=== PATIENT | male | born 1970 ===

== ENCOUNTER → 2020-05-10 11:42 | Outpatient (BNVA) | payer MEDICARE, MEDICAID, SELFPAY | PROVIDERS: PCP Internal Medicine; Referring Provider Internal Medicine; Visit Provider Urology | DX: Z76.89 Persons encountering health services in other specified circumstances (principal) | CPT/HCPCS: Q3014 ==

== ENCOUNTER 2020-07-05 08:40 | Outpatient (REF) | payer MEDICARE, MEDICAID, SELFPAY ==
[2020-07-05 11:36] LABS: Estimated Average Glucose 117 mg/dL; Hemoglobin A1c % 5.7 %
[2020-07-05 11:48] LABS: Alanine Aminotransferase 23 U/L (0-40); Albumin Level 3.9 g/dL (3.5-5.0); Alkaline Phosphatase 61 U/L (39-117); Anion Gap 11 (12-20); Aspartate Amino Transferase 30 U/L (5-37); Bilirubin Total 0.5 mg/dL (0.0-1.0); Blood Urea Nitrogen 20 mg/dL (9-16); Calcium 8.7 mg/dL (8.4-10.2); Carbon Dioxide 29 mmol/L (22-29); Chloride 102 mmol/L (96-108); Cholesterol 124 mg/dL; Estimated Glomerular Filt Rate 49; Glucose Fasting 106 mg/dL (60-99); HDL Cholesterol 34 mg/dL; LDL Cholesterol Calculated 54 mg/dl; Potassium 4.3 mmol/l (3.3-5.1); Sodium 138 mmol/L (135-145); Total Protein 6.6 g/dL (6.5-8.0); Triglycerides 180 mg/dL
[2020-07-05 12:01] LABS: Free T4 (Free Thyroxine) 0.86 ng/dL (0.71-1.85); Thyroid Stimulating Hormone 2.32 uIU/mL (0.32-4.0)
[2020-07-05 12:10] LABS: Prostate Specific Antigen 1.41 ng/mL (<0.05-4.0)
[2020-07-05 15:20] LABS: Creatinine Urine 164.67 mg/dL
[2020-07-06 12:26] LABS: Thyroid Peroxidase Antibodies 1 IU/mL (<9)
== END 2020-07-05 08:41 | disposition home or self-care (01) ==
LOC: HO.HMGCLDS 08:40
PROVIDERS: PCP Internal Medicine; Visit Provider Urology
DX: E11.9 Type 2 diabetes mellitus without complications (principal); E03.9 Hypothyroidism, unspecified; N40.1 Benign prostatic hyperplasia with lower urinary tract symptoms; N13.8 Other obstructive and reflux uropathy; Z12.5 Encounter for screening for malignant neoplasm of prostate
CPT/HCPCS: 36415; 80053; 80061; 82043; 83036; 84153; 84439; 84443; 86376

== ENCOUNTER 2020-09-03 11:28 | Outpatient (REF) | payer MEDICARE, MEDICAID, SELFPAY ==
--- NOTE | ~2020-09-03 | XR_ITS ---
EXAMINATION: XR SACRUM AND COCCYX CLINICAL INFORMATION: M53.3 - Sacrococcygeal disorders, not elsewhere classified COMPARISON: CT abdomen and pelvis 10/15/2019, radiographs lumbar spine 07/10/2019 TECHNIQUE: The sacrum and coccyx are imaged together in [id number] to include both areas, for a total of 3 views. FINDINGS: There is no fracture or destructive process. No diastases SI joints or erosive change. No visible presacral soft tissue swelling. Bowel gas unremarkable. There are mild degenerative disc changes lumbosacral junction, similar to the CT. XR/XR sacrum coccyx min 2V IMPRESSION: 1. Mild degenerative disc changes lumbosacral junction similar to CT 2020. 2. No acute bony abnormality. No destructive process.
== END 2020-09-03 11:29 | disposition home or self-care (01) ==
LOC: HO.HMGCX 11:28
PROVIDERS: PCP Internal Medicine; Visit Provider Hospitalist
DX: M53.3 Sacrococcygeal disorders, not elsewhere classified (principal)
CPT/HCPCS: 72220

== ENCOUNTER 2020-10-08 13:39 | Outpatient (REF) | payer MEDICARE, MEDICAID, SELFPAY ==
--- NOTE | ~2020-10-08 | XR_ITS ---
EXAMINATION: XR HIP, RIGHT CLINICAL INFORMATION: Fall COMPARISON: August 14, 2017 TECHNIQUE: AP pelvis and 2 views of the right hip FINDINGS: There is no evidence of acute fracture or diastases of the pelvis. Sacroiliac joints unremarkable. Hip joint spaces are maintained. There is no evidence of acute fracture or dislocation of the right hip. Right hip joint space is maintained without significant spurring. No lytic or sclerotic lesions about the femoral head identified. XR/XR hip RT w [id number] IMPRESSION: No significant bony abnormality of AP pelvis or right hip.
== END 2020-10-08 13:40 | disposition home or self-care (01) ==
LOC: HO.HMGCX 13:39
PROVIDERS: PCP Internal Medicine; Visit Provider Nurse Practitioner Family
DX: M25.551 Pain in right hip (principal); W19.XXXA Unspecified fall, initial encounter
CPT/HCPCS: 73502

== ENCOUNTER 2020-10-19 15:13 | Outpatient (REF) | payer MEDICARE, MEDICAID, SELFPAY ==
--- NOTE | ~2020-10-19 | US_ITS ---
EXAMINATION: US RETROPERITONEAL LIMITED (RENAL ONLY) CLINICAL INFORMATION: Calculus of kidney. COMPARISON: CT abdomen and pelvis without contrast dated 10/15/2019. Renal ultrasound with bladder dated 12/17/2016. TECHNIQUE: Real-time imaging of the kidneys. FINDINGS: RIGHT KIDNEY: 8.2 x 5.3 x 4.0 cm (SAG x AP x TRV). The kidney is normal in size, contour, and echogenicity. Renal cortical thickness is normal. No renal calculi or hydronephrosis. Upper pole 9 mm cyst. LEFT KIDNEY: 8.9 x 4.5 x 4.9 cm (SAG x AP x TRV). The kidney is normal in size, contour, and echogenicity. Renal cortical thickness is normal. No focal parenchymal lesions or hydronephrosis. Midpole 3 mm echogenic focus, perhaps small nonobstructing calculus. US/US renal BI IMPRESSION: 1. Right renal 9 mm cyst.. 2. Possible 3 mm left renal nonobstructing calculus. No hydronephrosis.
== END 2020-10-19 15:14 | disposition home or self-care (01) ==
LOC: HO.HMGCX 15:13
PROVIDERS: PCP Internal Medicine; Visit Provider Urology
DX: N20.0 Calculus of kidney (principal); N13.8 Other obstructive and reflux uropathy; N40.1 Benign prostatic hyperplasia with lower urinary tract symptoms
CPT/HCPCS: 76775

== ENCOUNTER 2020-11-28 07:53 | Outpatient (REF) | payer MEDICARE, MEDICAID, SELFPAY ==
[2020-11-28 12:00] LABS: Estimated Average Glucose 123 mg/dL; Hemoglobin A1c % 5.9 %
[2020-11-28 12:06] LABS: Alanine Aminotransferase 18 U/L (0-40); Anion Gap 12 (12-20); Aspartate Amino Transferase 23 U/L (5-37); Blood Urea Nitrogen 19 mg/dL (9-16); Calcium 8.8 mg/dL (8.4-10.2); Carbon Dioxide 30 mmol/L (22-29); Chloride 103 mmol/L (96-108); Cholesterol 129 mg/dL; Estimated Glomerular Filt Rate 56; Glucose Fasting 101 mg/dL (60-99); HDL Cholesterol 30 mg/dL; LDL Cholesterol Calculated 61 mg/dl; Potassium 4.4 mmol/L (3.3-5.1); Sodium 141 mmol/L (135-145); Triglycerides 194 mg/dL
[2020-11-28 12:14] LABS: Creatinine Urine 107.43 mg/dL; Microalbum/Creatinine Ratio Ur 22.3 ug/mg cr
[2020-11-28 12:31] LABS: Free T4 (Free Thyroxine) 0.82 ng/dL (0.71-1.85)
== END 2020-11-28 07:54 | disposition home or self-care (01) ==
LOC: HO.HMGCLDS 07:53
PROVIDERS: PCP Internal Medicine; Visit Provider Internal Medicine
DX: Z01.818 Encounter for other preprocedural examination (principal); Z21 Asymptomatic human immunodeficiency virus [HIV] infection status; E11.9 Type 2 diabetes mellitus without complications; E78.5 Hyperlipidemia, unspecified; I10 Essential (primary) hypertension; E03.9 Hypothyroidism, unspecified
CPT/HCPCS: 36415; 80048; 80061; 82043; 83036; 84439; 84443; 84450; 84460; 99202

== ENCOUNTER → 2020-12-28 11:17 | Outpatient (BNVA) | payer MEDICARE, MEDICAID, SELFPAY | PROVIDERS: PCP Internal Medicine; Visit Provider Urology | DX: N40.1 Benign prostatic hyperplasia with lower urinary tract symptoms (principal); N20.0 Calculus of kidney; E11.22 Type 2 diabetes mellitus with diabetic chronic kidney disease; N18.30 Chronic kidney disease, stage 3 unspecified; E03.9 Hypothyroidism, unspecified; E78.5 Hyperlipidemia, unspecified; B20 Human immunodeficiency virus [HIV] disease; Z88.7 Allergy status to serum and vaccine; Z88.2 Allergy status to sulfonamides; Z88.8 Allergy status to other drugs, medicaments and biological substances | CPT/HCPCS: 99212 ==

== ENCOUNTER 2021-01-07 07:30 | Day surgery (SDC) | payer MEDICARE, MEDICAID, SELFPAY ==
[2021-01-01 15:32] VITALS: BMI 26.5
--- NOTE | 2021-01-04 08:59 | P.CONAN_ITS ---
HPI - Anesthesia Eval Consult details Narrative: 50yo M for Colonoscopy PMF Active Problems Active Problems: All Active Problems (Updated 01/01/21 @ 15:29 by Sasha Lu) Coccyxdynia (Acute) Fall (Acute) Hip pain (Acute) Testicular hypofunction (Acute) Cognitive disorder (Acute) Depression (Acute) ADHD (attention deficit hyperactivity disorder) (Acute) CKD (chronic kidney disease), stage III (Acute) Benign prostatic hyperplasia with lower urinary tract symptoms (Acute) HIV (human immunodeficiency virus infection) (Acute) Nephrolithiasis (Acute) Dyslipidemia (Acute) Acquired deformity of toenail (Acute) Acquired hypothyroidism (Acute) Controlled diabetes mellitus type II without complication (Acute) Past Medical History Medical History Acquired deformity of toenail Acquired hypothyroidism ADHD (attention deficit hyperactivity disorder) Benign prostatic hyperplasia with lower urinary tract symptoms CKD (chronic kidney disease), stage III Cognitive disorder Controlled diabetes mellitus type II without complication COVID-19 vaccine series completed Depression Dyslipidemia HIV (human immunodeficiency virus infection) Lives in nursing home Nephrolithiasis Testicular hypofunction Family History Family History Father Unknown family medical history Mother Unknown family medical history Brother No problems noted. Sister No problems noted. Daughter No problems noted. Surgical History Surgical History No pertinent past surgical history Social History Social History Alcohol intake: never Patient Tobacco Use Status: Tobacco use Unknown Are you DNR?: No Advance Directives: No Advance Directives Information Provided: No Advance Directives on File: No Meds Allergies Allergy/AdvReac Type Severity Reaction Status Date / Time clindamycin [CLINDAMYCIN] Allergy Unknown UNKNOWN Verified 12/28/20 11:20 Sulfa (Sulfonamide Allergy Unknown UNKNOWN Verified 12/28/20 11:20 Antibiotics) [SULFA (SULFONAMIDE ANTIBIOTICS)] tuberculin, purified protein Allergy Unknown UNKNOWN Verified 12/28/20 11:20 deriva [TB TEST] Home Medications Medication Instructions Recorded Confirmed Last Taken Type bictegravir 50 mg-emtricitabine 1 tab PO DAILY 08/31/20 01/01/21 Unknown History 200 mg-tenofovir alafenam 25 mg tablet divalproex 250 mg tablet,extended 250 mg PO DAILY 08/31/20 01/01/21 Unknown History release 24 hr divalproex 500 mg tablet,extended 1,000 mg PO BEDTIME 08/31/20 01/01/21 Unknown History release 24 hr insulin syringe-needle U-100 /2 #100 ea 08/31/20 01/01/21 Unknown History mL 29 Exam Exam Date and Time: January 04, 2021 0859 Height,Weight and Vital Signs: Height 5 ft 3 in Weight 68.039 kg Pertinent Lab Results Pertinent Lab Results: Laboratory Tests 11/28/20 07:59 Sodium 141 Potassium 4.4 Chloride 103 BUN 19 H Creatinine 1.34 Assessment and Plan Assessment Anesthesia Assessment: Chart Reviewed
[2021-01-07 07:54] VITALS: BP 92/57; PULSE 89; RESP 16; TEMP 36.2; O2SAT 95
[2021-01-07 08:00] LABS: Glucose, Whole Blood 113 mg/dL (60-115)
[2021-01-07] MEDS: Lactated Ringers 1,000 ML 100 ML IVCONT (08:02)
--- NOTE | 2021-01-07 08:10 | HO.ANESPROP2 ---
[facility] Active Problems Active Problems: All Active Problems (Updated 01/01/21 @ 15:29 by Sasha Lu) Coccyxdynia (Acute) Fall (Acute) Hip pain (Acute) Testicular hypofunction (Acute) Cognitive disorder (Acute) Depression (Acute) ADHD (attention deficit hyperactivity disorder) (Acute) CKD (chronic kidney disease), stage III (Acute) Benign prostatic hyperplasia with lower urinary tract symptoms (Acute) HIV (human immunodeficiency virus infection) (Acute) Nephrolithiasis (Acute) Dyslipidemia (Acute) Acquired deformity of toenail (Acute) Acquired hypothyroidism (Acute) Controlled diabetes mellitus type II without complication (Acute) Past Medical History Medical History Acquired deformity of toenail Acquired hypothyroidism ADHD (attention deficit hyperactivity disorder) Benign prostatic hyperplasia with lower urinary tract symptoms CKD (chronic kidney disease), stage III Cognitive disorder Controlled diabetes mellitus type II without complication COVID-19 vaccine series completed Depression Dyslipidemia HIV (human immunodeficiency virus infection) Lives in [place] [facility] Nephrolithiasis Testicular hypofunction Family History Family History Father Unknown family medical history Mother Unknown family medical history Brother No problems noted. Sister No problems noted. Daughter No problems noted. Surgical History Surgical History No pertinent past surgical history Social History Social History Alcohol intake: never Patient Tobacco Use Status: Tobacco use Unknown Are you DNR?: No Advance Directives: No Advance Directives Information Provided: No Advance Directives on File: No Meds Allergies Allergy/AdvReac Type Severity Reaction Status Date / Time clindamycin [CLINDAMYCIN] Allergy Unknown UNKNOWN Verified 12/28/20 11:20 Sulfa (Sulfonamide Allergy Unknown UNKNOWN Verified 12/28/20 11:20 Antibiotics) [SULFA (SULFONAMIDE ANTIBIOTICS)] tuberculin, purified protein Allergy Unknown UNKNOWN Verified 12/28/20 11:20 deriva [TB TEST] Active Medications: Current Medications Generic Name Dose Route Start Last Admin Trade Name Freq PRN Reason Stop Dose Admin Lactated Ringer's 1,000 mls @ 100 mls/hr 01/07/21 07:15 01/07/21 08:02 Lr IVCONT 100 mls/hr .Q10H SARAH Administration Home Medications Medication Instructions Recorded Confirmed Last Taken Type bictegravir 50 mg-emtricitabine 1 tab PO DAILY 08/31/20 01/01/21 Unknown History 200 mg-tenofovir alafenam 25 mg tablet divalproex 250 mg tablet,extended 250 mg PO DAILY 08/31/20 01/01/21 Unknown History release 24 hr divalproex 500 mg tablet,extended 1,000 mg PO BEDTIME 08/31/20 01/01/21 Unknown History release 24 hr insulin syringe-needle U-100 /2 #100 ea 08/31/20 01/01/21 Unknown History mL 29 Exam Exam Date and Time: January 07, 2021 0810 Height,Weight and Vital Signs: Height 5 ft 3 in Weight 68.039 kg Last Vital Signs Temp 97.2 F 01/07/21 07:54 Pulse 89 01/07/21 07:54 Resp 16 01/07/21 07:54 BP 92/57 L 01/07/21 07:54 Pulse Ox 95 01/07/21 07:54 Pertinent Lab Results Pertinent Lab Results: Laboratory Tests 01/07/21 07:56 POC Glucose 113 Airway Mallampati Class: III TM Dist: >3cm Neck ROM: Full Denture: Upper Heart: RRR Lungs: CTA
--- NOTE | 2021-01-07 08:17 | MHC.SHP ---
Pre-Procedural Eval Section A Date of Service: 01/07/21 Section B Chief Complaint: Screening Details of Present Illness: Colon cancer screening Relevant Family History (Specify if Yes): No Relevant Social History: None Present Medications: see Short Stay Collaborative assessment Medical History: Significant History (Acquired deformity of toenail Acquired hypothyroidism ADHD (attention deficit hyperactivity disorder) Benign prostatic hyperplasia with lower urinary tract symptoms CKD (chronic kidney disease), stage III Cognitive disorder Controlled diabetes mellitus type II without complication Depression Dyslipi) History of Previous Operations: No relevant previous surgery Allergies: Allergies Allergy/AdvReac Type Severity Reaction Status Date / Time clindamycin [CLINDAMYCIN] Allergy Unknown UNKNOWN Verified 12/28/20 11:20 Sulfa (Sulfonamide Allergy Unknown UNKNOWN Verified 12/28/20 11:20 Antibiotics) [SULFA (SULFONAMIDE ANTIBIOTICS)] tuberculin, purified protein Allergy Unknown UNKNOWN Verified 12/28/20 11:20 deriva [TB TEST] Review of Systems Sugical H&P ROS: Negative: Constitution, Cardiovascular, Respiratory and Gastrointestinal Exam Surgical H&P Exam: Normal: Heart, Normal: Lungs, Normal: Extremities and Normal: Abdomen Plan Diagnosis/Plan: Unchanged I have reviewed the history and physical and performed a pertinent physical examination on my patient. No changes have occurred unless specified.
[2021-01-07 09:05] VITALS: BP 99/54; PULSE 61; RESP 16; TEMP 36.8; O2SAT 98
[2021-01-07 09:20] VITALS: BP 114/61; PULSE 58; RESP 16; TEMP 36.8; O2SAT 98
--- NOTE | 2021-01-07 13:54 | HO.POSTANES ---
Post Anesthesia Evaluation Post Anesthesia Evaluation Vital Signs: Vital Signs Temp Pulse Resp BP Pulse Ox 01/07/21 09:20 98.3 F 58 16 114/61 98 01/07/21 09:05 98.3 F 61 16 99/54 L 98 01/07/21 07:54 97.2 F 89 16 92/57 L 95 Anesthesia: Monitored Mental Status: Awake Pain Control: Satisfactory Nausea/Vomiting: None Hydration: Adequate Anesthesia-Related Issues: No Anes. Related Issues
--- NOTE | 2021-01-07 17:10 | P.OP_ITS ---
Operative Note Operative Note Date of Service: 01/07/21 Narrative: Pre-op diagnosis: Colon cancer screening Post-op diagnosis: other (Colon polyps, diverticulosis) Procedure: COLONOSCOPY TILL CECUM WITH BIOPSY Consent: Indications for the procedure and potential complications of bleeding, perforation, reaction to medications and missed diagnosis were discussed with the patient and informed consent was obtained. Instrument: Olympus PCF H 190 L variable stiffness pediatric colonoscope Monitoring: Vital signs and clinical assessment, intermittent blood pressure monitoring, continuous EKG monitoring, Pulse oximetry and Carbon Dioxide monitoring were done throughout the procedure. Colon withdrawl time was 17 minutes. Procedure: The patient was placed in the left lateral decubitis position and pre-procedure medications were administered. After a digital rectal examination of the ano-rectum, the video colonoscope was inserted into the rectum and advanced through the colon to the cecum. The colonoscope was slowly withdrawn in a retrograde panoramic fashion and the colon mucosa was carefully examined including a retroflexed view of the rectum. Findings and interventions are described below. Procedure Difficulty: Without difficulty Findings: Terminal Ileum: Not evaluated Cecum: Normal Ascending Colon: Normal Transverse Colon: a 7-8 mm sessile polyp removed with the cold biopsy Descending Colon: Moderate diverticulosis Sigmoid Colon: Moderate diverticulosis Rectum: Normal Ano-rectum: Normal Colon preparation: Fair despite copious irrigation and poor in some areas of the colon Impression and Post Procedure Diagnosis: Colonoscopy Findings: One small polyp removed Moderate diverticulosis seen in the left colon Plan: Await pathology results Patient has an appointment on 01/25/21 in the [facility] with Shona Alba FNP-BC . Repeat Colonoscopy interval based on path results - in 5 years if polyps are adenomatous and 10 years if polyps are hyperplastic (needs 2 day prep or extra - laxatives prior to next colon). Above findings were reviewed with the patient and colon polyps and diverticulosis handouts were given in the discharge area Surgeon: Olvin Aiken MD Anesthesia: MAC (Dr Jarquin) Was an Electrical Tester Battery used for this Procedure?: Yes Electrical Tester Battery: Mamadou Fernandes Estimated blood loss (mL): 0 Pathology: other (A- TRANSVERSE COLON POLYP) Condition: stable Disposition: PACU
== END 2021-01-07 09:52 | disposition home or self-care (01) ==
PROVIDERS: PCP Internal Medicine; Visit Provider Internal Medicine Gastroenterology
PROC: 0DJD8ZZ Inspection of Lower Intestinal Tract, Via Natural or Artificial Opening Endoscopic (ICD-10-PCS; CPT 45378; principal; 2021-01-07 08:20)
DX: Z12.11 Encounter for screening for malignant neoplasm of colon (principal); D12.3 Benign neoplasm of transverse colon; K57.30 Diverticulosis of large intestine without perforation or abscess without bleeding; E11.22 Type 2 diabetes mellitus with diabetic chronic kidney disease; N18.30 Chronic kidney disease, stage 3 unspecified; B20 Human immunodeficiency virus [HIV] disease; F90.9 Attention-deficit hyperactivity disorder, unspecified type; F09 Unspecified mental disorder due to known physiological condition; Z79.899 Other long term (current) drug therapy; Z88.2 Allergy status to sulfonamides; Z88.8 Allergy status to other drugs, medicaments and biological substances
CPT/HCPCS: 45380; 82947; 88305

== ENCOUNTER → 2021-02-12 09:33 | Outpatient (BNVA) | payer MEDICARE, MEDICAID, SELFPAY | PROVIDERS: Visit Provider Nurse Practitioner Family | DX: D36.9 Benign neoplasm, unspecified site (principal); Z98.890 Other specified postprocedural states | CPT/HCPCS: 99212 ==

== ENCOUNTER 2021-04-09 10:28 | Outpatient (REF) | payer MEDICARE, MEDICAID, SELFPAY ==
[2021-04-09 11:31] LABS: Ammonia 29 umol/L (13-55)
[2021-04-09 14:25] LABS: Alanine Aminotransferase 25 U/L (0-40); Albumin Level 3.8 g/dL (3.5-5.0); Alkaline Phosphatase 59 U/L (39-117); Aspartate Amino Transferase 26 U/L (5-37); Bilirubin Direct 0.2 mg/dL (0.0-0.5); Bilirubin Total 0.3 mg/dL (0.0-1.0); Total Protein 6.7 g/dL (6.5-8.0)
== END 2021-04-09 10:29 | disposition home or self-care (01) ==
LOC: HO.HMGCLDS 10:28
PROVIDERS: PCP Internal Medicine; Visit Provider General Practice
DX: F33.1 Major depressive disorder, recurrent, moderate (principal); Z79.899 Other long term (current) drug therapy
CPT/HCPCS: 36415; 80076; 80164; 82140

== ENCOUNTER 2021-06-04 08:14 | Outpatient (REF) | payer MEDICARE, MEDICAID, SELFPAY ==
[2021-06-04 11:52] LABS: Estimated Average Glucose 117 mg/dL; Hemoglobin A1c % 5.7 %
[2021-06-04 12:32] LABS: Free T4 (Free Thyroxine) 0.82 ng/dL (0.71-1.85); Thyroid Stimulating Hormone 1.82 uIU/mL (0.32-4.0)
[2021-06-04 12:35] LABS: Alanine Aminotransferase 17 U/L (0-40); Anion Gap 14 (12-20); Aspartate Amino Transferase 22 U/L (5-37); Blood Urea Nitrogen 19 mg/dL (9-16); Calcium 8.5 mg/dL (8.4-10.2); Carbon Dioxide 23 mmol/L (22-29); Chloride 107 mmol/L (96-108); Cholesterol 111 mg/dL; Estimated Glomerular Filt Rate > 60; Glucose Fasting 97 mg/dL (60-99); HDL Cholesterol 28 mg/dL; LDL Cholesterol Calculated 53 mg/dl; Potassium 3.8 mmol/L (3.3-5.1); Sodium 140 mmol/L (135-145); Triglycerides 154 mg/dL
== END 2021-06-04 08:15 | disposition home or self-care (01) ==
LOC: HO.HMGCLDS 08:14
PROVIDERS: PCP Internal Medicine; Visit Provider Internal Medicine
DX: E03.9 Hypothyroidism, unspecified (principal); E11.9 Type 2 diabetes mellitus without complications; E78.5 Hyperlipidemia, unspecified; I10 Essential (primary) hypertension; Z79.4 Long term (current) use of insulin
CPT/HCPCS: 36415; 80048; 80061; 82043; 83036; 84439; 84443; 84450; 84460

== ENCOUNTER 2021-08-21 10:21 | Outpatient (REF) | payer MEDICARE, MEDICAID, SELFPAY ==
--- NOTE | ~2021-08-21 | US_ITS ---
EXAMINATION: US RETROPERITONEAL LIMITED (RENAL ONLY) CLINICAL INFORMATION: Calculus of kidney. COMPARISON: Ultrasound renal 10/19/2020. CT abdomen pelvis 10/15/2019. TECHNIQUE: Real-time imaging of the kidneys. FINDINGS: RIGHT KIDNEY: 8.4 x 4.6 x 4.1 cm (SAG x AP x TRV). The kidney is normal in size, contour, and echogenicity. Renal cortical thickness is normal. No renal calculi or hydronephrosis. There is anechoic cyst in the upper pole measuring 1.0 x 0.9 x 0.9 cm. No additional cyst seen. LEFT KIDNEY: 9.0 x 4.4 x 4.0 cm (SAG x AP x TRV). The kidney is normal in size, contour, and echogenicity. Renal cortical thickness is normal. No calculi or focal parenchymal lesions. No hydronephrosis. US/US renal BI IMPRESSION: Anechoic cyst upper pole right kidney measuring 1.0 cm. There are no echogenic stones and additional cyst or hydronephrosis.
== END 2021-08-21 10:22 | disposition home or self-care (01) ==
LOC: HO.HMGCX 10:21
PROVIDERS: PCP Internal Medicine; Visit Provider Urology
DX: N20.0 Calculus of kidney (principal)
CPT/HCPCS: 76775

== ENCOUNTER 2021-09-19 16:45 | Emergency (ER) | payer MEDICARE, MEDICAID, SELFPAY ==
--- NOTE | ~2021-09-19 | CT_ITS ---
EXAMINATION: CT ABDOMEN AND PELVIS WITHOUT CONTRAST CLINICAL INFORMATION: Flank pain COMPARISON: None TECHNIQUE: Multidetector volumetric imaging was performed from the superior aspect of the liver through the pubic symphysis. Sagittal and coronal reformatted images were obtained on the technologist's workstation. This CT examination was performed using dose optimization techniques as appropriate, variously including the following: *Automated exposure control *Adjustment of mA and/or kV according to patient size (this includes techniques or standardized protocols for targeted exams where dose is matched to indication/reason for exam; i.e. extremities or head) *Use of iterative reconstruction technique DLP: 377 mGy-cm FINDINGS: LUNG BASES: There are multiple small pulmonary nodules seen in the right lower lobe. LIVER, GALLBLADDER, AND BILIARY TREE: The liver is normal in size, shape, and attenuation. No focal hepatic lesion or biliary ductal dilatation is present. There are punctate radiopaque calculi seen in the dependent gallbladder. There is no wall thickening. PANCREAS: Unremarkable. SPLEEN: Unremarkable. ADRENAL GLANDS: Unremarkable. KIDNEYS AND URETERS: The kidneys are normal in size, shape, and attenuation. No hydronephrosis, hydroureter, or calculi seen. No perinephric stranding. There is a 1 cm exophytic lesion upper pole right kidney. BLADDER: Unremarkable. GASTROINTESTINAL TRACT: There is scattered stool and gas seen throughout the colon without any significant distention. The small bowel loops are normal caliber. Appendix is not seen. No free air or free fluid seen. ABDOMINAL WALL: There is a small umbilical hernia containing fat. LYMPH NODES: Normal. VASCULAR: Unremarkable. PELVIC VISCERA: Unremarkable. OSSEOUS STRUCTURES: There are degenerative disc changes with vacuum disc phenomena L5-S1 disc level. There is mild ventral spondylosis. CT/CT abdomen pelvis wo con IMPRESSION: No acute intra-abdominal process seen. No radiopaque urolith or hydronephrosis. Small mobile gallstones without wall thickening. Small umbilical hernia containing fat. Fleischner guidelines were followed.
[2021-09-19 16:59] VITALS: BP 113/52; PULSE 72; RESP 18; TEMP 37.1; O2SAT 97; BMI 23.3
--- NOTE | 2021-09-19 17:03 | ECG_ITS ---
Test Reason : CHEST PRESSURE Blood Pressure : / mmHG Vent. Rate : 063 BPM Atrial Rate : 063 BPM P-R Int : 150 ms QRS Dur : 088 ms QT Int : 358 ms P-R-T Axes : 036 059 021 degrees QTc Int : 366 ms Normal sinus rhythm Nonspecific T wave abnormality Abnormal ECG When compared with ECG of 14-MAR-2019 12:19, No significant change was found Referred By: Generic ED Physician Electronically Signed By:MANJEET KRISHNA MD
[2021-09-19 17:33] LABS: Appearance Urine CLEAR; Color Urine YELLOW; Glucose Urine UA NEG (NEG); Leukocyte Esterase Urine 1+ (NEG); Nitrite Urine NEG (NEG); Specific Gravity - Urine 1.015 (1.005-1.025); UACC Culture Trigger YES; Urine Blood NEG (NEG); Urine Ketones NEG (NEG); Urine Protein NEG (NEG-TRACE)
[2021-09-19 17:44] LABS: MANUAL DIFF FLAG NO
[2021-09-19 17:46] LABS: Basophils Percent Auto 0.2 % (0-2); Eosinophils Absolute Auto 0.1 X10*3/uL (0.0-0.4); Eosinophils Percent Auto 0.9 % (0-4); Hemoglobin 12.9 g/dl (14.0-18.0); Imm Gran Abs Auto 0.01 X10*3/uL (0.00-0.03); Imm Gran Pct Auto 0.2 % (0.0-0.4); Lymphocytes Absolute Auto 2.2 X10*3/uL (1.2-4.9); Lymphocytes Percent Auto 40.3 % (20-40); Mean Corpuscular HGB Conc 33.9 g/dl (31.0-36.0); Mean Corpuscular Hemoglobin 35.8 pg (27.0-33.0); Mean Corpuscular Volume 105.6 fL (80.0-98.0); Mean Platelet Volume 10.2 fL (9.4-12.4); Monocytes Absolute Auto 0.5 X10*3/uL (0.1-1.2); Monocytes Percent Auto 9.8 % (2-11); Neutrophils Absolute Auto 2.7 x10*3/uL (2.0-8.3); Neutrophils Percent Auto 48.6 % (45-73); Platelet Count 113 X10*3/uL (160-400); Red Cell Distribution Width 12.3 % (11.0-16.0); White Blood Count 5.5 X10*3/uL (4.8-10.8)
[2021-09-19 17:50] LABS: Bacteria Urine TRACE /LPF; RBC Urine 0 /HPF (0)
[2021-09-19 18:04] LABS: Anion Gap 11 (12-20); Blood Urea Nitrogen 17 mg/dL (9-16); Calcium 8.9 mg/dL (8.4-10.2); Carbon Dioxide 29 mmol/L (22-29); Chloride 102 mmol/L (96-108); Creatinine Clr Calc Pharmacy 60.2; Estimated Glomerular Filt Rate > 60; Glucose Random 80 mg/dL (60-115); Potassium 4.9 mmol/L (3.3-5.1); Sodium 137 mmol/L (135-145)
[2021-09-19 20:29] VITALS: BP 124/55; PULSE 67; RESP 16; O2SAT 97
--- NOTE | 2021-09-19 20:37 | ED_ITS ---
HPI - General Adult General Chief complaint: General Medical Stated complaint: Abdominal pain Time Seen by Provider: 09/19/21 22:18 Source: patient and other (Caregiver) Mode of arrival: ambulatory Limitations: other (Cognitive impairment) History of Present Illness HPI narrative: 50-year-old male presents with abdominal pain, epigastric pain, and bilateral flank pain for 1 day. Onset (ago): day(s) (1) Location: chest and abdomen Radiation: non-radiation Severity: moderate Severity scale (1-10): 5 Quality: aching Pain Consistency: intermittent Relieving factors: none Exacerbating factors: movement and other (Palpation) Associated symptoms: denies other symptoms Treatments prior to arrival: none Related Data Home Medications Medication Instructions Recorded Confirmed bictegravir 50 mg-emtricitabine 1 tab PO DAILY 08/31/20 09/04/21 200 mg-tenofovir alafenam 25 mg tablet divalproex 250 mg tablet,extended 250 mg PO DAILY 08/31/20 09/04/21 release 24 hr divalproex 500 mg tablet,extended 1,000 mg PO BEDTIME 08/31/20 09/04/21 release 24 hr sertraline 25 mg tablet mg PO 06/05/21 09/04/21 Previous Rx's Medication Instructions Recorded guaifenesin 100 mg/5 mL oral 200 mg (10 mL) PO Q4H PRN #500 ml 04/03/20 liquid (Cough Syrup) acetaminophen 325 mg tablet 325 mg PO Q8H PRN #30 tab 05/30/20 ibuprofen 600 mg tablet 600 mg PO QID PRN #60 tab 10/08/20 levothyroxine 75 mcg tablet 75 mcg PO QAM #28 tab 01/22/21 blood sugar diagnostic (Contour See Rx Instructions .ROUTE QAM #50 04/17/21 Next Test Strips) strip insulin syringe-needle U-100 /2 #100 ea 04/23/21 mL 29 aspirin 81 mg tablet,delayed 81 mg PO DAILY #90 tab 05/14/21 release methylcellulose (laxative) 500 mg 500 mg PO DAILY #30 tab 05/22/21 tablet (Citrucel) atorvastatin 20 mg tablet 20 mg PO BEDTIME #30 tab 06/05/21 metformin 500 mg tablet 500 mg PO DAILY #30 tab 06/05/21 tamsulosin 0.4 mg capsule 0.4 mg PO DAILY 90 Days #90 cap 06/13/21 finasteride 5 mg tablet 5 mg PO DAILY 90 Days #90 tab 07/01/21 docusate sodium 100 mg capsule 100 mg PO BID #56 cap 07/09/21 (Stool Softener) terazosin 5 mg capsule 5 mg PO BEDTIME 90 Days #90 cap 07/09/21 multivitamin with minerals-ferrous 1 tab PO DAILY #28 tab 07/23/21 sulfate 4.5 mg iron tablet (One Daily Multivitamins with Minerals) calcium carbonate 200 mg calcium 200 mg PO BID #180 ea 08/14/21 (500 mg) chewable tablet (Campos-Gest Antacid) cefuroxime axetil 500 mg tablet 500 mg PO Q12H 7 Days #14 tab 09/19/21 Allergies Allergy/AdvReac Type Severity Reaction Status Date / Time clindamycin [CLINDAMYCIN] Allergy Unknown UNKNOWN Verified 09/04/21 02:13 Sulfa (Sulfonamide Allergy Unknown UNKNOWN Verified 09/04/21 02:13 Antibiotics) [SULFA (SULFONAMIDE ANTIBIOTICS)] tuberculin, purified protein Allergy Unknown UNKNOWN Verified 09/04/21 02:13 deriva [TB TEST] Review of Systems Review of Systems: Constitutional: No Weight loss, No Fever, No Chills, No Night Sweats, No Fatigue, No Malaise ENT/Mouth: No Hearing loss, No Ear Pain, No Nasal Congestion, No Sinus Pain, No Hoarseness, No sore throat, No Rhinorrhea, No Swallowing Difficulty Eyes: No Eye Pain, No Swelling, No Redness, No Foreign Body, No Discharge, No Vision Changes Cardiovascular: No Chest Pain, No SOB, No Dyspnea on Exertion, No Orthopnea, No Edema, No Palpitations Respiratory: No Cough, No Sputum, No Wheezing, No Smoke Exposure, No Dyspnea Gastrointestinal: No Nausea, no Vomiting, no Diarrhea, positive abdominal Pain, positive epigastric pain, No Hematochezia, No Melena Genitourinary: no irregular bleeding, No Dysuria, No Urinary Frequency, No Hematuria, No Urinary Incontinence, No Urgency, positive Flank Pain, No Urinary Flow Changes, No Hesitancy Musculoskeletal: No joint pain, No Myalgias, No Joint Swelling Skin: No Skin Lesions, No rash Neuro: No Weakness, No Numbness, No Paresthesias, No Loss of Consciousness, No Dizziness, No Headache Psych: No Anxiety/Panic, No Depression, No SI/HI/AH/VH, No Social Issues Heme/Lymph: No Bruising, No Bleeding,No Lymphadenopathy Endocrine: No Polyuria, No Polydipsia, No Temperature Intolerance Yes all other systems are reviewed and are negative [facility] Past Medical History Attestation statement: The following information was validated with the patient. Source: old records reviewed Medical History Acquired deformity of toenail Acquired hypothyroidism Acquired hypothyroidism ADHD (attention deficit hyperactivity disorder) Benign prostatic hyperplasia with lower urinary tract symptoms CKD (chronic kidney disease), stage III Cognitive disorder Controlled diabetes mellitus type II without complication COVID-19 vaccine series completed Depression Dyslipidemia HIV (human immunodeficiency virus infection) Lives in long term Nephrolithiasis Testicular hypofunction Tubular adenoma Surgical History No pertinent past surgical history Family History Family History Father Unknown family medical history Mother Unknown family medical history Brother No problems noted. Sister No problems noted. Daughter No problems noted. Social History Social History Alcohol intake: never Patient Tobacco Use Status: Tobacco use Unknown e-Cigarette/Vaping Use: Never Used Advance Directives: No Current occupational status: disabled Physical Exam ED Vital Signs: Vital Signs - 24 hr 09/19/21 16:59 09/19/21 20:29 Temperature 98.7 F Pulse Rate 72 67 Respiratory Rate 18 16 Blood Pressure 113/52 L 124/55 L Pulse Oximetry 97 97 BMI result Body Mass Index 23.3 Appearance: Alert. Oriented X3. No acute distress. Eyes: Pupils equal, round and reactive to light. Sclera nonicteric. ENT: Pharynx normal. Neck: Normal inspection. Neck supple. CVS: Normal heart rate and rhythm. Pulses normal. Respiratory: No respiratory distress. Breath sounds normal. Abdomen: Soft and tenderness noted to epigastric and right upper quadrant, right-sided CVA tenderness noted. No rebound or rigidity. Distention. No pulsatile masses. Skin: Skin warm and dry. Normal skin color. Normal skin turgor. Extremities: No lower extremity edema. Moves all extremities against resi stance. Gait not assessed. Neuro: No motor deficit. No sensory deficit. Cranial nerves 2-12 intact. Course Course Course Narrative: 50-year-old male presents from a long term with long term staff for 1 day of abdominal pain, flank pain, and epigastric pain. Labs drawn while patient was in the waiting room, H&H 12.9/38.0 which is consistent with his prior values dating back to 2019. Urinalysis positive for leukocyte esterase. Will order CT scan of abdomen and pelvis. Patient is able to answer simple questions but is a poor historian per baseline. CT scan of abdomen and pelvis negative for acute findings requiring emergent intervention. Will treat for UTI secondary to positive leukocyte esterase and history of HIV. Patient does have a gallstone without indication of cholecyst itis. Will have patient follow-up with primary care physician as an outpatient. Patient and long term staff verbalized understanding of and agrees to plan of care discharge home. [facility] staff verbalized understanding of signs and symptoms indicating need for emergent intervention. Medical Decision Making Differential Diagnosis Differential Diagnosis: Cholelithiasis, acute abdomen, cholecystitis, nephro lithiasis, UTI, pyelone Medical Records Medical records reviewed: Yes I reviewed the patient's medical records. Lab Data Lab results reviewed: Yes I reviewed the patient's lab results. Result diagrams: 09/19/21 17:41 09/19/21 17:39 Labs: Lab Results 09/19/21 09/19/21 09/19/21 Range/Units 17:17 17:39 17:39 WBC (4.8-10.8) X10*3/uL RBC (4.60-5.80) X10*6/uL Hgb (14.0-18.0) g/dl Hct (42.0-52.0) % MCV (80.0-98.0) fL MCH (27.0-33.0) pg MCHC (31.0-36.0) g/dl RDW (11.0-16.0) % Plt Count (160-400) X10*3/uL MPV (9.4-12.4) fL Immature Gran % (Auto) (0.0-0.4) % Neut % (Auto) (45-73) % Lymph % (Auto) (20-40) % [place] % (Auto) (2-11) % Eos % (Auto) (0-4) % Baso % (Auto) (0-2) % Lymph # (Auto) (1.2-4.9) X10*3/uL [place] # (Auto) (0.1-1.2) X10*3/uL Eos # (Auto) (0.0-0.4) X10*3/uL Baso # (Auto) (0.0-0.2) X10*3/uL Abs Immat Gran (auto) (0.00-0.03) X10*3/uL Absolute Neuts (auto) (2.0-8.3) x10*3/uL Absolute Nucleated RBC (0.0-0.012) X10*3/uL Nucleated RBC % (auto) (0.0-0.2) /100WBC Sodium 137 (135-145) mmol/L Potassium 4.9 D (3.3-5.1) mmol/L Chloride 102 (96-108) mmol/L Carbon Dioxide 29 (22-29) mmol/L Anion Gap 11 L (12-20) BUN 17 H (9-16) mg/dL Creatinine 1.20 (0.5-1.4) mg/dL Estim Creat Clear Calc 60.2 Estimated GFR > 60 Random Glucose 80 (60-115) mg/dL Calcium 8.9 (8.4-10.2) mg/dL Troponin I High Sens 5.7 (<3.5-35.0) ng/L Urine Color YELLOW Urine Appearance CLEAR Urine pH 6.0 (5.0-8.0) Ur Specific [place] 1.015 (1.005-1.025) Urine Protein NEG (NEG-TRACE) MG/DL Urine Glucose (UA) NEG (NEG) MG/DL Urine Ketones NEG (NEG) MG/DL Urine Blood NEG (NEG) Urine Nitrite NEG (NEG) Ur Leukocyte Esterase 1+ H (NEG) Urine RBC 0 (0) /HPF Urine WBC 1-4 (0-4) /HPF Ur Squamous Epith Cells NONE /LPF Urine Bacteria TRACE /LPF 09/19/21 Range/Units 17:41 WBC 5.5 (4.8-10.8) X10*3/uL RBC 3.60 L (4.60-5.80) X10*6/uL Hgb 12.9 L (14.0-18.0) g/dl Hct 38.0 L (42.0-52.0) % MCV 105.6 H (80.0-98.0) fL MCH 35.8 H (27.0-33.0) pg MCHC 33.9 (31.0-36.0) g/dl RDW 12.3 (11.0-16.0) % Plt Count 113 L (160-400) X10*3/uL MPV 10.2 (9.4-12.4) fL Immature Gran % (Auto) 0.2 (0.0-0.4) % Neut % (Auto) 48.6 (45-73) % Lymph % (Auto) 40.3 H (20-40) % [place] % (Auto) 9.8 (2-11) % Eos % (Auto) 0.9 (0-4) % Baso % (Auto) 0.2 (0-2) % Lymph # (Auto) 2.2 (1.2-4.9) X10*3/uL [place] # (Auto) 0.5 (0.1-1.2) X10*3/uL Eos # (Auto) 0.1 (0.0-0.4) X10*3/uL Baso # (Auto) 0.0 (0.0-0.2) X10*3/uL Abs Immat Gran (auto) 0.01 (0.00-0.03) X10*3/uL Absolute Neuts (auto) 2.7 (2.0-8.3) x10*3/uL Absolute Nucleated RBC 0.000 (0.0-0.012) X10*3/uL Nucleated RBC % (auto) 0.0 (0.0-0.2) /100WBC Sodium (135-145) mmol/L Potassium (3.3-5.1) mmol/L Chloride (96-108) mmol/L Carbon Dioxide (22-29) mmol/L Anion Gap (12-20) BUN (9-16) mg/dL Creatinine (0.5-1.4) mg/dL Estim Creat Clear Calc Estimated GFR Random Glucose (60-115) mg/dL Calcium (8.4-10.2) mg/dL Troponin I High Sens (<3.5-35.0) ng/L Urine Color Urine Appearance Urine pH (5.0-8.0) Ur Specific [place] (1.005-1.025) Urine Protein (NEG-TRACE) MG/DL Urine Glucose (UA) (NEG) MG/DL Urine Ketones (NEG) MG/DL Urine Blood (NEG) Urine Nitrite (NEG) Ur Leukocyte Esterase (NEG) Urine RBC (0) /HPF Urine WBC (0-4) /HPF Ur Squamous Epith Cells /LPF Urine Bacteria /LPF Imaging Data CT abdomen pelvis: Attestation: I personally reviewed and interpreted this imaging study as follows: Radiologist's impression: COMPARISON: None? TECHNIQUE: Multidetector volumetric imaging was performed from the superior aspect of the liver through the pubic symphysis. Sagittal and coronal reformatted images were obtained on the technologist's workstation.? This CT examination was performed using dose optimization techniques as appropriate, variously including the following: *Automated exposure control *Adjustment of mA and/or kV according to patient size (this includes techniques or standardized protocols for targeted exams where dose is matched to indication/reason for exam; i.e. extremities or head) *Use of iterative reconstruction technique DLP: 377 mGy-cm FINDINGS: LUNG BASES: There are multiple small pulmonary nodules seen in the right lower lobe. LIVER, GALLBLADDER, AND BILIARY TREE: The liver is normal in size, shape, and attenuation. No focal hepatic lesion or biliary ductal dilatation is present. There are punctate radiopaque calculi seen in the dependent gallbladder. There is no wall thickening.? PANCREAS: Unremarkable.? SPLEEN: Unremarkable.? ADRENAL GLANDS: Unremarkable.? KIDNEYS AND URETERS: The kidneys are normal in size, shape, and attenuation. No hydronephrosis, hydroureter, or calculi seen. No perinephric stranding. There is a 1 cm exophytic lesion upper pole right kidney. BLADDER: Unremarkable.? GASTROINTESTINAL TRACT: There is scattered stool and gas seen throughout the colon without any significant distention. The small bowel loops are normal caliber. Appendix is not seen. No free air or free fluid seen.? ABDOMINAL WALL: There is a small umbilical hernia containing fat.? LYMPH NODES: Normal. VASCULAR: Unremarkable. PELVIC VISCERA: Unremarkable.? OSSEOUS STRUCTURES: There are degenerative disc changes with vacuum disc phenomena L5-S1 disc level. There is mild ventral spondylosis.? CT/CT abdomen pelvis wo con IMPRESSION: No acute intra-abdominal process seen. ? No radiopaque urolith or hydronephrosis. ? Small mobile gallstones without wall thickening. ? Small umbilical hernia containing fat.? ? Fleischner guidelines were followed. ECG Data Attestation: I personally reviewed and interpreted this ECG as follows: Prior ECG tracings: available for review Interpretation: Vent. rate 63 BPM LA interval 150 ms QRS duration 88 ms QT/QTc 358/366 ms P-R-T axes 36 59 21 Normal sinus rhythm Nonspecific T wave abnormality Abnormal ECG When compared with ECG of 14-MAR-2019 12:19, No significant change was found 19-SEP-2021 17:26:16 Discharge Plan Discharge Clinical Impression: Acute UTI, Gallstones Patient Disposition: Home, Self-Care Instructions: Gallstones (ED), Urinary Tract Infection in Men (DC) Additional Instructions: You were evaluated for abdominal pain. CT scan of abdomen and pelvis shows gallstones without a gallbladder infection. Please follow-up with primary care physician as an outpatient for nonsurgical evaluation. Urinalysis is positive for leukocyte esterase. Please take cefuroxime 500 mg twice a day for the next 7 days. Drink plenty of fluids. Thank you for choosing this emergency department for evaluation. Please follow-up with primary care physician as needed. Return to the emergency department for any new, concerning, or worsening symptoms. Prescriptions: New cefuroxime axetil 500 mg tablet 500 mg PO Q12H 7 Days Qty: 14 0RF No Action guaifenesin [Cough Syrup] 100 mg/5 mL liquid 200 mg PO Q4H PRN (Reason: cough) Qty: 500 0RF acetaminophen 325 mg tablet 325 mg PO Q8H PRN (Reason: fever or pain) Qty: 30 0RF levothyroxine 75 mcg tablet 75 mcg PO QAM Qty: 28 8RF Contour Next Test Strips Strip See Rx Instructions .ROUTE QAM Qty: 50 6RF Rx Instructions: Check fasting blood sugar once a day every morning; (DME) insulin syringe-needle U-100 1/2 mL 29 syringe See Rx Instructions ea .ROUTE DAILY Qty: 100 5RF Rx Instructions: As directed aspirin 81 mg tablet,delayed release (DR/EC) 81 mg PO DAILY Qty: 90 3RF Citrucel 500 mg tablet 500 mg PO DAILY Qty: 30 9RF Rx Instructions: take it with full glass of water tamsulosin 0.4 mg capsule 0.4 mg PO DAILY 90 Days Qty: 90 2RF finasteride 5 mg tablet 5 mg PO DAILY 90 Days Qty: 90 2RF terazosin 5 mg capsule 5 mg PO BEDTIME 90 Days Qty: 90 2RF docusate sodium [Stool Softener] 100 mg capsule 100 mg PO BID Qty: 56 6RF One Daily Multi-Vit w-Mineral 4.5 mg iron tablet 1 tab PO DAILY Qty: 28 5RF calcium carbonate [Campos-Gest Antacid] 200 mg calcium (500 mg) tablet,chewable 200 mg PO BID Qty: 180 3RF divalproex 250 mg tablet extended release 24 hr 250 mg PO DAILY 0RF divalproex 500 mg tablet extended release 24 hr 1,000 mg PO BEDTIME 0RF wmdsarsde-yeofwfel-tfriqmy ala 50-200-25 mg tablet 1 tab PO DAILY 0RF ibuprofen 600 mg tablet 600 mg PO QID PRN (Reason: pain) Qty: 60 0RF sertraline 25 mg tablet PO 0RF Label Comments: 75 mg Rx Instructions: 75mg atorvastatin 20 mg tablet 20 mg PO BEDTIME Qty: 30 8RF metformin 500 mg tablet 500 mg PO DAILY Qty: 30 5RF Interventions: ED Discharge Assessment Last Done: 09/19/21 22:36 Discharge Date/Time: 09/19/21 22:38
[2021-09-19 21:23] LABS: Troponin-I High Sensitivity 5.7 ng/L (<3.5-35.0)
== END 2021-09-19 22:38 | disposition home or self-care (01) ==
PROVIDERS: Emergency Provider Emergency Medicine; PCP Internal Medicine
DX: N39.0 Urinary tract infection, site not specified (principal); K80.20 Calculus of gallbladder without cholecystitis without obstruction; R10.9 Unspecified abdominal pain; B20 Human immunodeficiency virus [HIV] disease; E11.22 Type 2 diabetes mellitus with diabetic chronic kidney disease; N18.30 Chronic kidney disease, stage 3 unspecified
CPT/HCPCS: 36415; 74176; 80048; 81001; 84484; 85025; 87086; 93005; 99284

== ENCOUNTER → 2022-02-04 10:26 | Outpatient (BNVA) | payer MEDICARE, MEDICAID, SELFPAY | PROVIDERS: PCP Internal Medicine; Visit Provider Urology | DX: N40.1 Benign prostatic hyperplasia with lower urinary tract symptoms (principal); N20.0 Calculus of kidney; N13.8 Other obstructive and reflux uropathy; R33.9 Retention of urine, unspecified; E11.9 Type 2 diabetes mellitus without complications | CPT/HCPCS: Q3014 ==

== ENCOUNTER 2022-02-23 19:18 | Emergency (ER) | payer MEDICARE, MEDICAID, SELFPAY ==
--- NOTE | ~2022-02-23 | XR_ITS ---
EXAMINATION: XR HIP, RIGHT CLINICAL INFORMATION: Fall. Pain. COMPARISON: 09/19/2021 TECHNIQUE: AP upright, AP supine, and frog-leg lateral views of the right hip. FINDINGS: Minimal osteoarthritis of the bilateral hips with small marginal osteophytes. Joint spaces are normal. Soft tissues are unremarkable. Mild facet arthropathy in the lower lumbar spine. 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 No acute fracture or malalignment
--- NOTE | ~2022-02-23 | XR_ITS ---
EXAMINATION: XR LUMBOSACRAL SPINE CLINICAL INFORMATION: Fall. Hip and back pain. COMPARISON: 09/19/2021 TECHNIQUE: AP and lateral views of the lumbar spine and lateral view of the lumbosacral junction. FINDINGS: There is loss of vertebral disc height at the L5-S1 level with endplate osteophytes. Mild facet arthropathy. Minimal disc otherwise well-preserved. Review body heights are normal. No fractures. Calcific atherosclerosis in the abdominal aorta. SI joints are unremarkable. XR/XR lumbar spine 2-3V IMPRESSION: No acute fracture or malalignment. Degenerative spondylosis at L5-S1.
[2022-02-23 19:31] VITALS: BP 112/59; PULSE 77; RESP 18; O2SAT 95; BMI 24.9
[2022-02-23 19:36] VITALS: BP 112/59; PULSE 81; RESP 14; O2SAT 96
--- NOTE | 2022-02-23 19:38 | ED_ITS ---
HPI - Fall General Chief Complaint: Fall Stated Complaint: fall, back pain Source: patient and EMS Mode of arrival: EMS Limitations: other (Academic impairment) History of Present Illness HPI Narrative: 51-year-old male presents via EMS for injuries sustained from a fall. Patient resides in a senior care, is cognitively impaired, and is wheelchair-bound. States that he was trying to transfer from his wheelchair to his bed and landed on his left hip and lower back onto the floor. Group staff states that he did not his head or lose consciousness, but patient is complaining of left hip pain and lower back pain. Does not describe any other symptoms. MD complaint: fall Onset (ago): hour(s) (Within the hour of arrival) Fall from: wheelchair Fall witnessed: yes, by living facility staff Place fall occurred: home Loss of consciousness: none Prolonged down time: no Symptoms prior to fall: none Context: tripped/slipped Location of injury: back and pelvis Severity: mild Severity scale (1-10): 2 Quality: aching Associated symptoms (after fall): denies Related Data Home Medications Medication Instructions Recorded Confirmed bictegravir 50 mg-emtricitabine 1 tab PO DAILY 08/31/20 09/04/21 200 mg-tenofovir alafenam 25 mg tablet divalproex 250 mg tablet,extended 250 mg PO DAILY 08/31/20 09/04/21 release 24 hr divalproex 500 mg tablet,extended 1,000 mg PO BEDTIME 08/31/20 09/04/21 release 24 hr sertraline 25 mg tablet mg PO 06/05/21 09/04/21 Previous Rx's Medication Instructions Recorded ibuprofen 600 mg tablet 600 mg PO QID PRN pain #60 tabs 10/08/20 blood sugar diagnostic (Contour See Rx Instructions .Route QAM for 04/17/21 Next Test Strips) diabetes mellitus #50 strips insulin syringe-needle U-100 / #100 ea 04/23/21 mL 29 aspirin 81 mg tablet,delayed 81 mg PO DAILY #90 tabs 05/14/21 release methylcellulose (laxative) 500 mg 500 mg PO DAILY #30 tabs 05/22/21 tablet (Citrucel) calcium carbonate 200 mg calcium 200 mg PO BID #180 ea 08/14/21 (500 mg) chewable tablet (Campos-Gest Antacid) cefuroxime axetil 500 mg tablet 500 mg PO Q12H 7 days #14 tabs 09/19/21 levothyroxine 75 mcg tablet 75 mcg PO QAM #90 tabs 10/02/21 metformin 500 mg tablet 500 mg PO DAILY #90 tabs 10/31/21 acetaminophen 325 mg tablet 325 mg PO Q8H PRN fever or pain 11/25/21 #30 tabs guaifenesin 100 mg/5 mL oral 200 mg (10 mL) PO Q4H PRN cough 11/25/21 liquid (Cough Syrup) #500 mL multivitamin with minerals-ferrous 1 tab PO DAILY #28 tabs 12/25/21 sulfate 4.5 mg iron tablet (One Daily Multivitamins with Minerals) atorvastatin 20 mg tablet 20 mg PO BEDTIME #30 tabs 01/24/22 docusate sodium 100 mg capsule 100 mg PO BID #56 caps 01/24/22 (Stool Softener) finasteride 5 mg tablet 5 mg PO DAILY 90 days #90 tabs 02/04/22 terazosin 5 mg capsule 5 mg PO BEDTIME 90 days #90 caps 02/04/22 Allergies Allergy/AdvReac Type Severity Reaction Status Date / Time clindamycin [CLINDAMYCIN] Allergy Unknown UNKNOWN Verified 02/03/22 13:38 Sulfa (Sulfonamide Allergy Unknown UNKNOWN Verified 02/03/22 13:38 Antibiotics) [SULFA (SULFONAMIDE ANTIBIOTICS)] tuberculin, purified protein Allergy Unknown UNKNOWN Verified 02/03/22 13:38 deriva [TB TEST] Review of Systems Review of Systems: Constitutional: No Fever, No Chills ENT/Mouth: No Ear Pain, No Hoarseness, No sore throat Eyes: No Eye Pain, No Swelling, No Redness, No Foreign Body Cardiovascular: No Chest Pain, No SOB Respiratory: No Cough, No Dyspnea Gastrointestinal: No Nausea, No Vomiting, No Diarrhea, No abdominal Pain Genitourinary: No Dysuria, No Hematuria Musculoskeletal: positive lower back and left hip pain, No Myalgias, No Joint Swelling Skin: No Skin lacerations, No rash Neuro: No Weakness, No Numbness, No Paresthesias, No Loss of Consciousness, No Dizziness, No Headache Psych: No Anxiety/Panic, No Depression Heme/Lymph: no easy bruising, no Lymphadenopathy Endocrine: No Polyuria, No Polydipsia Yes all other systems are reviewed and are negative PMFSH Past Medical History Attestation statement: The following information was validated with the patient. Source: old records reviewed Medical History Acquired deformity of toenail Acquired hypothyroidism Acquired hypothyroidism ADHD (attention deficit hyperactivity disorder) Benign prostatic hyperplasia with lower urinary tract symptoms CKD (chronic kidney disease), stage III Cognitive disorder Controlled diabetes mellitus type II without complication COVID-19 vaccine series completed Depression Dyslipidemia HIV (human immunodeficiency virus infection) Lives in senior care Nephrolithiasis Testicular hypofunction Tubular adenoma Surgical History No pertinent past surgical history Family History Family History Father Unknown family medical history Mother Unknown family medical history Brother No problems noted. Sister No problems noted. Daughter No problems noted. Social History Social History Alcohol intake: never Patient Tobacco Use Status: Never used Tobacco e-Cigarette/Vaping Use: Never Used Use of substances other than those prescribed or required for medical reasons: No Advance Directives: No Advance Directives Information Provided: No Current occupational status: disabled Physical Exam Vital Signs: Vital Signs: Last Vital Signs Pulse 81 02/23/22 19:36 Resp 14 02/23/22 19:36 BP 112/59 L 02/23/22 19:36 Pulse Ox 96 02/23/22 19:36 O2 Del Method 02/23/22 19:36 BMI result Body Mass Index 24.9 Appearance: Alert. Oriented X3. No acute distress. Eyes: Pupils equal, round and reactive to light. ENT: Pharynx normal. Neck: Normal inspection. Neck supple. CVS: Normal heart rate and rhythm. Pulses normal. Respiratory: No respiratory distress. Breath sounds normal. Abdomen: Soft and nontender. Skin: Skin warm and dry. Normal skin color. Normal skin turgor. Extremities: No lower extremity edema. Moves all extremities against resistance. Neuro: No motor deficit. No sensory deficit. Cranial nerves 2-12 intact. Course Course Course Narrative: 51-year-old male presents for evaluation for lower back pain and left hip pain after falling from his wheelchair while attempting to transfer from wheelchair t o his bed. Does have a history of chronic back pain and hip pain. He does live in a senior care, is cognitively impaired but able to make his needs known. He is friendly, answering questions appropriately, and appears to be well cared for. [facility] staff is at bedside. Physical exam is unremarkable, moves all extremities against resistance, no crepitus or tenderness to palpation. No indication of hematoma or abrasions to his head, HEENT exam is normal. No cervical vertebral tenderness or step-offs. Will order x-rays of the lumbar spine and left hip. 21:54 x-rays are negative for acute findings. Will discharge home. No change in prescription. Patient does have p.r.n. for Tylenol and Motrin. Patient and senior care staff verbalized understanding of and agrees to plan of care dis charge home. MDM - Fall Differential Diagnosis Differential diagnosis: Likely dislocation and fracture Medical Records Attestation: I reviewed the patient's medical records. Imaging Data Hip and lumbar spine x-ray: Attestation: I personally reviewed and interpreted this imaging study as follows: Radiologist's impression: EXAMINATION: XR LUMBOSACRAL SPINE CLINICAL INFORMATION: Fall. Hip and back pain. COMPARISON: 09/19/2021 TECHNIQUE: AP and lateral views of the lumbar spine and lateral view of the lumbosacral junction. FINDINGS: There is loss of vertebral disc height at the L5-S1 level with endplate osteophytes. Mild facet arthropathy. Minimal disc otherwise well-preserved. Review body heights are normal. No fractures. Calcific atherosclerosis in the abdominal aorta. SI joints are unremarkable. XR/XR lumbar spine 2-3V IMPRESSION: No acute fracture or malalignment. Degenerative spondylosis at L5-S1. EXAMINATION: XR HIP, RIGHT CLINICAL INFORMATION: Fall. Pain. COMPARISON: 09/19/2021 TECHNIQUE: AP upright, AP supine, and frog-leg lateral views of the right hip. FINDINGS: Minimal osteoarthritis of the bilateral hips with small marginal osteophytes. Joint spaces are normal. Soft tissues are unremarkable. Mild facet arthropathy in the lower lumbar spine.? 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 No acute fracture or malalignment ? Discharge Plan Discharge Clinical Impression: Fall, Hip pain, Back pain Patient Disposition: Home, Self-Care Instructions: Acute Low Back Pain (ED), Fall Prevention (ED), Hip Pain (ED) Additional Instructions: You were evaluated for injury sustained from a fall. X-rays of the lower back and hip are negative for acute findings requiring emergent intervention. Please continue to use medications that were prescribed to you, Tylenol and ibuprofen for pain management. Return to the emergency department for any new, concerning, or worsening symptoms. Prescriptions: No Action Contour Next Test Strips Strip See Rx Instructions .ROUTE QAM Qty: 50 6RF Rx Instructions: Check fasting blood sugar once a day every morning; (DME) insulin syringe-needle U-100 1/2 mL 29 syringe See Rx Instructions .ROUTE DAILY Qty: 100 5RF Rx Instructions: As directed aspirin 81 mg tablet,delayed release (DR/EC) 81 mg PO DAILY Qty: 90 3RF Citrucel 500 mg tablet 500 mg PO DAILY Qty: 30 9RF Rx Instructions: take it with full glass of water calcium carbonate [Campos-Gest Antacid] 200 mg calcium (500 mg) tablet,chewable 200 mg PO BID Qty: 180 3RF levothyroxine 75 mcg tablet 75 mcg PO QAM Qty: 90 3RF metformin 500 mg tablet 500 mg PO DAILY Qty: 90 3RF guaifenesin [Cough Syrup] 100 mg/5 mL liquid 200 mg PO Q4H PRN (Reason: cough) Qty: 500 0RF acetaminophen 325 mg tablet 325 mg PO Q8H PRN (Reason: fever or pain) Qty: 30 0RF One Daily Multi-Vit w-Mineral 4.5 mg iron tablet 1 tab PO DAILY Qty: 28 5RF atorvastatin 20 mg tablet 20 mg PO BEDTIME Qty: 30 8RF docusate sodium [Stool Softener] 100 mg capsule 100 mg PO BID Qty: 56 6RF cefuroxime axetil 500 mg tablet 500 mg PO Q12H 7 Days Qty: 14 0RF divalproex 250 mg tablet extended release 24 hr 250 mg PO DAILY divalproex 500 mg tablet extended release 24 hr 1,000 mg PO BEDTIME [id number] ala 50-200-25 mg tablet 1 tab PO DAILY ibuprofen 600 mg tablet 600 mg PO QID PRN (Reason: pain) Qty: 60 0RF sertraline 25 mg tablet PO Label Comments: 75 mg Rx Instructions: 75mg finasteride 5 mg tablet 5 mg PO DAILY 90 Days Qty: 90 1RF terazosin 5 mg capsule 5 mg PO BEDTIME 90 Days Qty: 90 1RF Interventions: ED Discharge Assessment Last Done: 02/23/22 21:39 Discharge Date/Time: 02/23/22 21:37
== END 2022-02-23 21:37 | disposition home or self-care (01) ==
PROVIDERS: Emergency Provider Emergency Medicine
DX: M54.50 Low back pain, unspecified (principal); M25.551 Pain in right hip; Z79.899 Other long term (current) drug therapy
CPT/HCPCS: 72100; 73502; 99284

== ENCOUNTER → 2022-02-27 09:47 | Outpatient (BNVA) | payer MEDICARE, MEDICAID, SELFPAY | PROVIDERS: Visit Provider Nurse Practitioner Family | DX: K57.90 Diverticulosis of intestine, part unspecified, without perforation or abscess without bleeding (principal) | CPT/HCPCS: 99212 ==

== ENCOUNTER 2022-04-18 07:47 | Outpatient (REF) | payer MEDICARE, MEDICAID, SELFPAY ==
[2022-04-18 12:15] LABS: Alanine Aminotransferase 17 U/L (0-40); Anion Gap 14 (12-20); Aspartate Amino Transferase 26 U/L (5-37); Blood Urea Nitrogen 17 mg/dL (9-16); Calcium 9.1 mg/dL (8.4-10.2); Carbon Dioxide 27 mmol/L (22-29); Chloride 104 mmol/L (96-108); Cholesterol 132 mg/dL; Estimated Glomerular Filt Rate 59; Glucose Fasting 112 mg/dL (60-99); HDL Cholesterol 31 mg/dL; LDL Cholesterol Calculated 60 mg/dl; Potassium 4.3 mmol/L (3.3-5.1); Sodium 141 mmol/L (135-145); Triglycerides 206 mg/dL
[2022-04-18 12:18] LABS: Free T4 (Free Thyroxine) 0.89 ng/dL (0.71-1.85); Thyroid Stimulating Hormone 1.87 uIU/mL (0.32-4.0); Vitamin D 25-OH Total 34.5 ng/mL (>30)
[2022-04-18 12:20] LABS: Creatinine Urine 142.42 mg/dL; Microalbum/Creatinine Ratio Ur 25.9 ug/mg cr
== END 2022-04-18 07:48 | disposition home or self-care (01) ==
LOC: HO.HMGCLDS 07:47
PROVIDERS: PCP Internal Medicine; Visit Provider Internal Medicine
DX: E03.9 Hypothyroidism, unspecified (principal); E11.9 Type 2 diabetes mellitus without complications; E78.5 Hyperlipidemia, unspecified; I10 Essential (primary) hypertension; Z79.4 Long term (current) use of insulin
CPT/HCPCS: 36415; 80048; 80061; 82043; 82306; 84439; 84443; 84450; 84460

== ENCOUNTER 2022-08-02 16:25 | Emergency (ER) | payer MEDICARE, MEDICAID, SELFPAY ==
--- NOTE | ~2022-08-02 | XR_ITS ---
Indication: Fall EXAMINATION: Sacrum coccyx, right hip with pelvis and lumbar sacral spine 3 views of the lumbar sacral spine demonstrate degenerative change in lower lumbar sacral spine. No listhesis or compression injury is seen. No fracture line. 2 views of the sacrum coccyx does not demonstrate evidence for fracture. Some limitation from overlying bowel. Single pelvic image does not demonstrate evidence for fracture. 2 views of the right hip does not demonstrate evidence for fracture or dislocation. XR/XR sacrum coccyx min 2V IMPRESSION: Multiple studies. No acute finding.
--- NOTE | ~2022-08-02 | XR_ITS ---
Indication: Fall EXAMINATION: Sacrum coccyx, right hip with pelvis and lumbar sacral spine 3 views of the lumbar sacral spine demonstrate degenerative change in lower lumbar sacral spine. No listhesis or compression injury is seen. No fracture line. 2 views of the sacrum coccyx does not demonstrate evidence for fracture. Some limitation from overlying bowel. Single pelvic image does not demonstrate evidence for fracture. 2 views of the right hip does not demonstrate evidence for fracture or dislocation. XR/XR lumbar spine 2-3V IMPRESSION: Multiple studies. No acute finding.
--- NOTE | ~2022-08-02 | XR_ITS ---
Indication: Fall EXAMINATION: Sacrum coccyx, right hip with pelvis and lumbar sacral spine 3 views of the lumbar sacral spine demonstrate degenerative change in lower lumbar sacral spine. No listhesis or compression injury is seen. No fracture line. 2 views of the sacrum coccyx does not demonstrate evidence for fracture. Some limitation from overlying bowel. Single pelvic image does not demonstrate evidence for fracture. 2 views of the right hip does not demonstrate evidence for fracture or dislocation. XR/XR hip RT w PEL1V IMPRESSION: Multiple studies. No acute finding.
[2022-08-02 16:36] VITALS: BP 122/52; PULSE 77; O2SAT 97
[2022-08-02 16:41] VITALS: BP 92/53; PULSE 79; RESP 16; TEMP 37.1; O2SAT 96; BMI 23.3
--- NOTE | 2022-08-02 17:05 | ED_ITS ---
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 Reports landing on right hip/back. Denies head trauma or LOC. patient takes ASA. Denies neck pain, numbness, tingling, urinary incontinence/retention, abdominal pain, symptoms prior to fall MD complaint: fall Related Data Home Medications Medication Instructions Recorded Confirmed bictegravir 50 mg-emtricitabine 1 tab PO DAILY 08/31/20 09/04/21 200 mg-tenofovir alafenam 25 mg tablet divalproex 250 mg tablet,extended 250 mg PO DAILY 08/31/20 09/04/21 release 24 hr divalproex 500 mg tablet,extended 1,000 mg PO BEDTIME 08/31/20 09/04/21 release 24 hr sertraline 25 mg tablet mg PO 06/05/21 09/04/21 [id number]-ZS-jdgswmksfbm 2.5 15 ml PO Q4H PRN 04/24/22 mg-5 mg-50 mg/5 mL oral liquid (Robitussin Cough and Cold CF) Previous Rx's Medication Instructions Recorded ibuprofen 600 mg tablet 600 mg PO QID PRN pain #60 tabs 10/08/20 blood sugar diagnostic (Contour See Rx Instructions .Route QAM for 04/17/21 Next Test Strips) diabetes mellitus #50 strips insulin syringe-needle U-100 06/30 #100 ea 04/23/21 mL 29 levothyroxine 75 mcg tablet 75 mcg PO QAM #90 tabs 10/02/21 metformin 500 mg tablet 500 mg PO DAILY #90 tabs 10/31/21 acetaminophen 325 mg tablet 325 mg PO Q8H PRN fever or pain 11/25/21 #30 tabs guaifenesin 100 mg/5 mL oral 200 mg (10 mL) PO Q4H PRN cough 11/25/21 liquid (Cough Syrup) #500 mL atorvastatin 20 mg tablet 20 mg PO BEDTIME #30 tabs 07/29/22 docusate sodium 100 mg capsule 100 mg PO BID #56 caps 01/24/22 (Stool Softener) finasteride 5 mg tablet 5 mg PO DAILY 90 days #90 tabs 02/04/22 terazosin 5 mg capsule 5 mg PO BEDTIME 90 days #90 caps 02/04/22 methylcellulose (laxative) 500 mg 500 mg PO DAILY #30 tabs 03/19/22 tablet (Citrucel) aspirin 81 mg tablet,delayed 81 mg PO DAILY #90 tabs 04/16/22 release multivitamin with minerals-ferrous 1 tab PO DAILY #28 tabs 06/16/22 sulfate 4.5 mg iron tablet (One Daily Multivitamins with Minerals) calcium carbonate 200 mg calcium 200 mg PO BID #180 ea 07/14/22 (500 mg) chewable tablet (Campos-Gest Antacid) acetaminophen 500 mg tablet 500 mg PO Q6H PRN fever or pain 08/02/22 (Tylenol Extra Strength) #14 tabs lidocaine 5 % topical patch 1 patch topical DAILY PRN pain #30 08/02/22 (Lidoderm) ea Allergies Allergy/AdvReac Type Severity Reaction Status Date / Time clindamycin [CLINDAMYCIN] Allergy Unknown UNKNOWN Verified 04/24/22 15:21 Sulfa (Sulfonamide Allergy Unknown UNKNOWN Verified 04/24/22 15:21 Antibiotics) [SULFA (SULFONAMIDE ANTIBIOTICS)] tuberculin, purified protein Allergy Unknown UNKNOWN Verified 04/24/22 15:21 deriva [TB TEST] Review of Systems Review of Systems: Constitutional: No Fever, No Chills, No Fatigue, No Malaise ENT/Mouth: No Ear Pain, No Nasal Congestion, No sore throat, No Rhinorrhea, No Swallowing Difficulty Eyes: No Eye Pain, No Swelling, No Redness Cardiovascular: No Chest Pain, No SOB, No Palpitations Respiratory: No Cough, No Sputum, No Dyspnea Gastrointestinal: No Nausea, No Vomiting, No Diarrhea, No Constipation, No Abdominal pain Genitourinary: No Dysuria, No Urinary Frequency, No Hematuria, No Urinary Incontinence/retention, No Flank Pain Musculoskeletal: + joint pain, No Myalgias, No Joint Swelling Skin: No Skin Lesions, No rash Neuro: No Weakness, No Numbness, No Paresthesias, No Loss of Consciousness, No Dizziness, No Headache Yes all other systems are reviewed and are negative Constitutional: Constitutional: Reports as per [facility] Past Medical History Attestation statement: The following information was validated with the patient. Medical History Acquired deformity of toenail Acquired hypothyroidism Acquired hypothyroidism ADHD (attention deficit hyperactivity disorder) Benign prostatic hyperplasia with lower urinary tract symptoms CKD (chronic kidney disease), stage III Cognitive disorder Controlled diabetes mellitus type II without complication COVID-19 vaccine series completed Depression Diverticulosis Dyslipidemia HIV (human immunodeficiency virus infection) Lives in [place] [facility] Nephrolithiasis Testicular hypofunction Tubular adenoma Surgical History No pertinent past surgical history Family History Family History Father Unknown family medical history Mother Unknown family medical history Brother No problems noted. Sister No problems noted. Daughter No problems noted. Social History Social History Housing: Other Housing Other:: [facility] Alcohol intake: never Patient Tobacco Use Status: Never used Tobacco e-Cigarette/Vaping Use: Never Used Advance Directives: No Advance Directives Information Provided: No Current occupational status: disabled Cognitive needs: No Hearing needs: No Vision needs: Yes Physical Exam Vital Signs: Vital Signs: Last Vital Signs Temp 98.7 F 08/02/22 16:41 Pulse 79 08/02/22 16:41 Resp 16 08/02/22 16:41 BP 92/53 L 08/02/22 16:41 Pulse Ox 96 08/02/22 16:41 O2 Del Method 08/02/22 16:41 BMI result Body Mass Index 23.3 Const: General: cooperative, healthy appearing, no acute distress, alert and awake Orientation/consciousness: patient oriented x3 Limitations: no limitations HEENT: Head: Yes normal to inspection and Yes atraumatic Ears: hearing grossly normal bilaterally General nose exam: Normal external nose present Face and sinus: Yes normal facial exam Throat: Yes posterior oropharynx normal Eyes: General: appearance normal, both eyes and all related structures EOM: EOMs intact bilaterally Neck: Neck: Yes normal visual inspection and Yes no meningeal signs Resp: Effort & Inspection: normal respiratory effort and no respiratory distress Auscultation: clear to auscultation bilaterally Cardio: Rate: regular rate Heart sounds: S1 normal heart sound present and S2 normal heart sound present GI: Inspection: Yes normal to inspection Palpation (GI): Soft to palpation, nontender, no guarding and not rigid Back/Spine/Pelvis: Other: No midline thoracic/lumbar spinous tenderness/step-off or deformity. + bilateral lower lumbar paraspinal tenderness to palpation reproducing subjective complaints no ecchymosis/erythema, no flail chest, no crepitus Skin: Rashes: no rashes Wounds: no wounds Neuro: Other: Strength intact throughout. No saddle anesthesia. Sensation intact to light touch. Neurovascular intact distally General: patient oriented x3, tone normal, moves all extremities, no meningeal signs, no focal motor deficits and CN's II-XI intact bilaterally Cognition (Neuro): normal cognition (At baseline) Gait exam (Neuro): Normal gait present Motor exam (neuro): 5/5 motor strength present throughout Extrem: Other: Right hip nontender. Passive ROM intact. Neurovascular intact distally General: Yes normal to inspection Course Course Course Narrative: XR sacrum coccyx min 2V / XR lumbar spine 2-3V / XR hip RT w PEL1V IMPRESSION: Multiple studies. No acute finding. Results discussed with patient including worrisome signs and symptoms and strict return precautions, and when to return to the emergency department. They verbalized understanding and feel safe for discharge at this time. 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 On exam BP soft (chronically), NAD, nontoxic appearing, physical exam as above. No midline spinous tenderness or or red flag symptoms. Rule out fracture vs MSK pain/strain. Low suspicion for cauda equina/cord compression or epidural abscess Plan: X-rays Differential Diagnosis Differential Diagnoses: The differential diagnosis associated with the presentation includes As above Radiology Impression Discussion of test interpretation with radiology: I have reviewed the radiologist's reading. Independent Historian [facility] staff External Record Review Prior ED record Prescription Management I considered prescription management with: Pain Medication Chronic Conditions Patient?s care impacted by: Other Social Determinants Patient?s care significantly limited by Social Determinants of Health including: Other Social Determinant of Health Discharge Plan Discharge Patient Disposition: Home, Self-Care Instructions: Arthralgia (ED) Additional Instructions: Your x-rays do not show any acute fractures or breaks. Continue home prescribed medications, in addition take Tylenol and use Lidoderm patches to painful area Have close follow-up with her doctor If symptoms persist or worsen, pain becomes unbearable, you developed urinary retention or incontinence, or weakness return to the ED Prescriptions: New lidocaine [Lidoderm] 5 % adhesive patch,medicated 1 patch topical DAILY MDD remove after 12 hours PRN (Reason: pain) Qty: 30 0RF Rx Instructions: leave on most painful area for up to 12 hrs acetaminophen [Tylenol Extra Strength] 500 mg tablet 500 mg PO Q6H PRN (Reason: fever or pain) Qty: 14 0RF No Action Contour Next Test Strips Strip See Rx Instructions .ROUTE QAM Qty: 50 6RF Rx Instructions: Check fasting blood sugar once a day every morning; (DME) insulin syringe-needle U-100 1/2 mL 29 syringe See Rx Instructions .ROUTE DAILY Qty: 100 5RF Rx Instructions: As directed levothyroxine 75 mcg tablet 75 mcg PO QAM Qty: 90 3RF metformin 500 mg tablet 500 mg PO DAILY Qty: 90 3RF guaifenesin [Cough Syrup] 100 mg/5 mL liquid 200 mg PO Q4H PRN (Reason: cough) Qty: 500 0RF acetaminophen 325 mg tablet 325 mg PO Q8H PRN (Reason: fever or pain) Qty: 30 0RF atorvastatin 20 mg tablet 20 mg PO BEDTIME Qty: 30 8RF docusate sodium [Stool Softener] 100 mg capsule 100 mg PO BID Qty: 56 6RF Citrucel 500 mg tablet 500 mg PO DAILY Qty: 30 9RF Rx Instructions: take it with full glass of water aspirin 81 mg tablet,delayed release (DR/EC) 81 mg PO DAILY Qty: 90 3RF One Daily Multi-Vit w-Mineral 4.5 mg iron tablet 1 tab PO DAILY Qty: 28 5RF calcium carbonate [Campos-Gest Antacid] 200 mg calcium (500 mg) tablet,chewable 200 mg PO BID Qty: 180 1RF divalproex 250 mg tablet extended release 24 hr 250 mg PO DAILY divalproex 500 mg tablet extended release 24 hr 1,000 mg PO BEDTIME [id number]-[id number] ala 50-200-25 mg tablet 1 tab PO DAILY ibuprofen 600 mg tablet 600 mg PO QID PRN (Reason: pain) Qty: 60 0RF sertraline 25 mg tablet PO Label Comments: 75 mg Rx Instructions: 75mg Robitussin Cough and Cold CF 2.5-5-50 mg/5 mL liquid 15 ml PO Q4H PRN finasteride 5 mg tablet 5 mg PO DAILY 90 Days Qty: 90 1RF terazosin 5 mg capsule 5 mg PO BEDTIME 90 Days Qty: 90 1RF Referrals: ED Physician,Generic [Emergency Provider] - Physician,Unknown J [Primary Care Provider] -
[2022-08-02 17:51] VITALS: BP 110/56; RESP 16; O2SAT 95
== END 2022-08-02 19:11 | disposition home or self-care (01) ==
PROVIDERS: Emergency Provider Internal Medicine
DX: M54.50 Low back pain, unspecified (principal); M25.551 Pain in right hip; E78.5 Hyperlipidemia, unspecified; F09 Unspecified mental disorder due to known physiological condition; F90.9 Attention-deficit hyperactivity disorder, unspecified type; B20 Human immunodeficiency virus [HIV] disease; Z79.02 Long term (current) use of antithrombotics/antiplatelets; Z79.899 Other long term (current) drug therapy; Z79.84 Long term (current) use of oral hypoglycemic drugs
CPT/HCPCS: 72100; 72220; 73502; 99283

== ENCOUNTER → 2022-08-14 11:19 | Outpatient (BNVA) | payer MEDICARE, MEDICAID, SELFPAY | PROVIDERS: PCP Internal Medicine; Visit Provider Urology | DX: N40.1 Benign prostatic hyperplasia with lower urinary tract symptoms (principal); R39.14 Feeling of incomplete bladder emptying; R39.12 Poor urinary stream; R35.1 Nocturia; E29.1 Testicular hypofunction; N28.1 Cyst of kidney, acquired; F90.9 Attention-deficit hyperactivity disorder, unspecified type | CPT/HCPCS: 51798; 99212 ==

== ENCOUNTER 2022-09-15 08:14 | Outpatient (REF) | payer MEDICARE, MEDICAID, SELFPAY ==
[2022-09-15 11:38] LABS: MANUAL DIFF FLAG NO
[2022-09-15 11:48] LABS: Basophils Percent Auto 0.1 % (0-2); Eosinophils Absolute Auto 0.1 X10*3/uL (0.0-0.4); Eosinophils Percent Auto 0.7 % (0-4); Hematocrit 40.2 % (42.0-52.0); Hemoglobin 13.6 g/dl (14.0-18.0); Imm Gran Abs Auto 0.02 X10*3/uL (0.00-0.03); Imm Gran Pct Auto 0.3 % (0.0-0.4); Lymphocytes Absolute Auto 1.6 X10*3/uL (1.2-4.9); Lymphocytes Percent Auto 24.3 % (20-40); Mean Corpuscular HGB Conc 33.8 g/dl (31.0-36.0); Mean Corpuscular Volume 106.3 fL (80.0-98.0); Mean Platelet Volume 11.1 fL (9.4-12.4); Monocytes Absolute Auto 0.6 X10*3/uL (0.1-1.2); Monocytes Percent Auto 9.4 % (2-11); Neutrophils Absolute Auto 4.3 x10*3/uL (2.0-8.3); Neutrophils Percent Auto 65.2 % (45-73); Platelet Count 131 X10*3/uL (160-400); Red Blood Count 3.78 X10*6/uL (4.60-5.80); Red Cell Distribution Width 12.5 % (11.0-16.0); White Blood Count 6.7 X10*3/uL (4.8-10.8)
[2022-09-15 12:17] LABS: Estimated Average Glucose 117 mg/dL; Hemoglobin A1c % 5.7 %
[2022-09-15 12:44] LABS: Microalbum/Creatinine Ratio Ur 49.4 ug/mg cr
[2022-09-15 12:51] LABS: Alanine Aminotransferase 18 U/L (0-40); Anion Gap 14 (12-20); Aspartate Amino Transferase 22 U/L (5-37); Blood Urea Nitrogen 13 mg/dL (9-16); Carbon Dioxide 28 mmol/L (22-29); Chloride 103 mmol/L (96-108); Cholesterol 128 mg/dL; Estimated Glomerular Filt Rate 58; Glucose Fasting 110 mg/dL (60-99); HDL Cholesterol 33 mg/dL; Iron 90 mcg/dL (45-160); LDL Cholesterol Calculated 59 mg/dl; Percent Iron Saturation 36 % (15-50); Potassium 4.3 mmol/L (3.3-5.1); Sodium 141 mmol/L (135-145); Total Iron Binding Capacity 248 mcg/dL (228-428); Triglycerides 181 mg/dL; Unsaturated Iron Binding 158 ug/dL
[2022-09-15 12:54] LABS: Thyroid Stimulating Hormone 1.35 uIU/mL (0.32-4.0); Vitamin D 25-OH Total 32.9 ng/mL (>30)
== END 2022-09-15 08:15 | disposition home or self-care (01) ==
LOC: HO.HMGCLDS 08:14
PROVIDERS: PCP Internal Medicine; Visit Provider Internal Medicine
DX: Z00.01 Encounter for general adult medical examination with abnormal findings (principal); D36.9 Benign neoplasm, unspecified site; D64.9 Anemia, unspecified; E03.9 Hypothyroidism, unspecified; E11.9 Type 2 diabetes mellitus without complications; E78.5 Hyperlipidemia, unspecified; Z79.4 Long term (current) use of insulin; Z86.39 Personal history of other endocrine, nutritional and metabolic disease
CPT/HCPCS: 36415; 80048; 80061; 82043; 82306; 83036; 83540; 84439; 84443; 84450; 84460; 85025

== ENCOUNTER 2022-09-23 08:44 | Outpatient (REF) | payer MEDICARE, MEDICAID, SELFPAY ==
[2022-09-23 11:57] LABS: Prostate Specific Antigen 0.38 ng/mL (<0.05-4.0)
== END 2022-09-23 08:45 | disposition home or self-care (01) ==
LOC: HO.10HDL 08:44
PROVIDERS: Visit Provider Urology
DX: Z12.5 Encounter for screening for malignant neoplasm of prostate (principal); N40.1 Benign prostatic hyperplasia with lower urinary tract symptoms
CPT/HCPCS: 36415; 84153

== ENCOUNTER → 2022-10-17 12:58 | Outpatient (BNVA) | payer MEDICARE, MEDICAID, SELFPAY | PROVIDERS: PCP Internal Medicine; Visit Provider Urology | DX: N40.1 Benign prostatic hyperplasia with lower urinary tract symptoms (principal) | CPT/HCPCS: 52000; 99212 ==

== ENCOUNTER 2023-01-23 15:12 | Outpatient (AMB) | payer MEDICARE, MEDICAID, SELFPAY ==
--- NOTE | 2023-01-23 15:25 | A.OFFVIS_ITS ---
Intake Intake Visit Reasons: 3 month pvr Intake Note: Pt presents to the office today for a 3 month PVR follow-up. Urinalysis done. PVR-256 Allergies clindamycin [CLINDAMYCIN] Allergy (Unknown, Verified 01/23/23 15:26) UNKNOWN Sulfa (Sulfonamide Antibiotics) [SULFA (SULFONAMIDE ANTIBIOTICS)] Allergy (Unknown, Verified 01/23/23 15:26) UNKNOWN tuberculin, purified protein deriva [TB TEST] Allergy (Unknown, Verified 01/23/23 15:26) UNKNOWN HPI HPI Comments History of Present Illness Details Orlando is a pleasant male. He is a resident of a [facility] facility. He is a patient of Dr. Anguiano. 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 b.i.d. PSA 09/18 0.4 Recommend timed voiding, limited fluids after 20:00, sit to void Renal cyst Renal cyst 1 cm right upper pole Imaging - 01/17 CT scan 1 cm right upper cyst pole, no stones Lower Urinary Tract Symptoms: stable imaging. Current visit is for further evaluation of, lower urinary tract symptoms, predominate obstructive symptoms. Current treatment includes medication, alpha samuel, 5-AR. Prostate Symptom Score Moderate (9-19), Bother 3 05/17 , Mild (0-8), Bother 2. Symptoms include incomplete emptying, weak stream, nocturia (>2), and are progressing. Results from testing include cystoscopy no abnormality seen 05/17 Prostate volume < 30 gm. imaging - 12/17 renal ultrasound 9 mm cyst on right, 3 mm stone on left Associated conditions - HIV, diabetes, prior head injury Testing at next visit will include bladder scan [facility] Medical History Acquired deformity of toenail Acquired hypothyroidism ADHD (attention deficit hyperactivity disorder) Anemia Benign prostatic hyperplasia with lower urinary tract symptoms CKD (chronic kidney disease), stage III Cognitive disorder Controlled diabetes mellitus type II without complication COVID-19 vaccine series completed Depression Diverticulosis Dyslipidemia HIV (human immunodeficiency virus infection) Lives in correction Nephrolithiasis Testicular hypofunction Tubular adenoma Surgical History No pertinent past surgical history Family History Father Unknown family medical history Mother Unknown family medical history Brother No problems noted. Sister No problems noted. Daughter No problems noted. Social History Housing: Other Housing Other:: retirement Alcohol intake: never Patient Tobacco Use Status: Never used Tobacco e-Cigarette/Vaping Use: Never Used service: No Current occupational status: disabled Current occupational exposures/hazards: No Cognitive needs: No Hearing needs: No Vision needs: Yes Review of Systems Const Denies chills and Denies fever(s) Card Reports no additional complaints and Denies syncope Resp Denies cough GI Denies abdominal pain and Denies heartburn Reports as per HPI and Denies change in libido Neuro Denies syncope Psych Denies change in libido Endo Denies change in libido Physical Exam Const General: cooperative, healthy appearing, comfortable and no acute distress Orientation/consciousness: patient oriented x3 HEENT Face and sinus: Yes normal facial exam Mouth: moist mucous membranes Neck Neck: Yes normal visual inspection, Yes full ROM and Yes trachea midline Chest Chest palpation & inspection: normal inspection of the chest Resp Effort & Inspection: normal respiratory effort, able to speak in complete sentences and no respiratory distress GI Inspection: Yes normal to inspection Back/Spine/Pelvis Cervical Spine: normal cervical lordosis Thoracic/Lumbar Spine: thoracic and lumbar spine normal to inspection Skin General skin exam: no rashes or lesions noted Neuro General: patient oriented x3, gait normal, tone normal and moves all extremities Extrem General: Yes normal to inspection and Yes capillary refill normal Office Procedures Post Void Residual Post Residual Void Post Void Residual (PVR): [id number] Void Residual by ultrasound Results AMB Urinalysis, Automated UA Leukoctes 15 Jeremiah/uL Last Edit by Angi Delgado MA on 01/23/23 15:38 UA Nitrite Negative Last Edit by Angi Delgado MA on 01/23/23 15:38 UA Urobilinogen 0.2 mg/dL Last Edit by Angi Delgado MA on 01/23/23 15:38 UA Protein 15 mg/dL Last Edit by Angi Delgado MA on 01/23/23 15:38 UA pH 6.5 Last Edit by Angi Delgado MA on 01/23/23 15:38 UA Blood 0 Derrick/uL Last Edit by Angi Delgado MA on 01/23/23 15:38 UA Specific [place] 1.015 Last Edit by Angi Delgado MA on 01/23/23 15:38 UA Ketone Positive Last Edit by Angi Delgado MA on 01/23/23 15:38 UA Bilirubin 1 mg/dL Last Edit by Angi Delgado MA on 01/23/23 15:38 UA Glucose 0 mg/dL Last Edit by Angi Delgado MA on 01/23/23 15:38 Results Reviewed Results Reviewed: Laboratory Last Values Urine pH (Auto) 6.5 01/23/23 15:30 Specific [place] (Auto) 1.015 01/23/23 15:30 Urine Protein (Auto) 15 mg/dL 01/23/23 15:30 Glucose (UA)(Auto) 0 mg/dL 01/23/23 15:30 Urine Ketones (Auto) Positive 01/23/23 15:30 Urine Blood (Auto) 0 Derrick/uL 01/23/23 15:30 Urine Nitrite (Auto) Negative 01/23/23 15:30 Urine Bilirubin (Auto) 1 mg/dL 01/23/23 15:30 Urine Urobilinogen (Auto) 0.2 mg/dL 01/23/23 15:30 Leukocyte Esterase (Auto) 15 Jeremiah/uL 01/23/23 15:30 Assessment & Plan Assessment & Plan (1) Benign prostatic hyperplasia with lower urinary tract symptoms: Comment: Followed by Dr. Sandoval Code(s): N40.1 - Benign prostatic hyperplasia with lower urinary tract symptoms (2) Nephrolithiasis: Comment: Followed by Dr. Sandoval Code(s): N20.0 - Calculus of kidney Plan Six month follow-up Orders: Orders AMB Urinalysis Automated Today Z13.9 - Encounter for screening, unspecified AMB Post Void Residual by ultrasound Today N20.0 - Calculus of kidney Patient Instructions: Imaging studies, laboratory and physical exam results were discussed and reviewed in detail. No major barriers to patient understanding were identified. An opportunity to ask questions regarding the treatment plan was provided. All questions were answered. The patient expressed understanding and agreement with the above treatment plan. The patient is aware they should contact our office by phone for worsening of their current condition or the appearance of new urologic symptoms. Compliance is encouraged with any medications and followup testing that is ordered. It is a privilege to participate in the urologic care of your patient. If you have any questions or concerns regarding treatment for the above conditions, or other urologic issues, please do not hesitate to contact me. The office telephone contact is [phone]. This note is constructed using voice recognition software. While every effort has been made to ensure accuracy study lead errors may have been included. Yours sincerely, Dr Fox Sandoval MD, [facility] - Urology Providers of Expert, Compassionate Care for the Genitourinary System Coding Level of Care Code Est Pt Level 3 (52861) Diagnoses Benign prostatic hyperplasia with lower urinary tract symptoms N40.1 Nephrolithiasis N20.0 CPT Codes Post Residual Void - PVR CPT Code: 02784-Cjfl Void Residual by ultrasound ([id number])
== END 2023-01-23 15:50 | disposition home or self-care (01) ==
PROVIDERS: Visit Provider Urology
DX: N40.1 Benign prostatic hyperplasia with lower urinary tract symptoms (principal); N20.0 Calculus of kidney
CPT/HCPCS: 99213

== ENCOUNTER → 2023-01-23 15:12 | Outpatient (BNVA) | payer MEDICARE, MEDICAID, SELFPAY | PROVIDERS: Visit Provider Urology | DX: N20.0 Calculus of kidney (principal); N40.1 Benign prostatic hyperplasia with lower urinary tract symptoms; N13.8 Other obstructive and reflux uropathy; E11.22 Type 2 diabetes mellitus with diabetic chronic kidney disease; N18.30 Chronic kidney disease, stage 3 unspecified; B20 Human immunodeficiency virus [HIV] disease | CPT/HCPCS: 51798; 99212 ==

== ENCOUNTER 2023-02-03 11:44 | Outpatient (AMB) | payer MEDICARE, MEDICAID, SELFPAY ==
[2023-02-03 11:55] VITALS: BP 109/54; PULSE 77; BMI 21.9
--- NOTE | 2023-02-03 11:55 | MHC.OFFVIS ---
Intake Vital Signs 02/03/23 11:55 Height 5 ft 4 in Weight 127 lb 6.835 oz BMI 21.9 BP 109/54 L Blood Pressure Location Lt brachial Position Sitting Pulse 77 Intake Visit Reasons: 1 year follow up Intake Note: Omero valentine presents in office as a est.patient for a 1 year follow up for Divert. 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 I will see patient in 1 year, sooner on as needed basis. Patient is agreeable to this plan and verbalizes understanding of instructions. He was given the opportunity to ask questions and all questions answered. TODAY'S VISIT Patient is here today accompanied by half-way staff. Patient is in the wheelchair. Alert and oriented. Patient states that he is feeling well. Denies any GI concerning symptoms. Moves his bowels daily. Denies any abdominal pains or discomfort. Denies any melena, hematochezia, unintentional weight loss or ribbon like stools. Patient denies any dyspepsia, dysphagia or odynophagia. [facility] Medical History Acquired deformity of toenail Acquired hypothyroidism ADHD (attention deficit hyperactivity disorder) Anemia Benign prostatic hyperplasia with lower urinary tract symptoms CKD (chronic kidney disease), stage III Cognitive disorder Controlled diabetes mellitus type II without complication COVID-19 vaccine series completed Depression Diverticulosis Dyslipidemia HIV (human immunodeficiency virus infection) Lives in half-way Nephrolithiasis Testicular hypofunction Tubular adenoma Surgical History No pertinent past surgical history Family History Father Unknown family medical history Mother Unknown family medical history Brother No problems noted. Sister No problems noted. Daughter No problems noted. Social History Housing: Other Housing Other:: shelter Alcohol intake: never Patient Tobacco Use Status: Never used Tobacco e-Cigarette/Vaping Use: Never Used service: No Current occupational status: disabled Current occupational exposures/hazards: No Cognitive needs: No Hearing needs: No Vision needs: Yes Review of Systems Const Denies weight gain and Denies weight loss ENT Reports no additional complaints, Denies dysphagia and Denies odynophagia Card Reports no additional complaints Resp Reports no additional complaints GI Denies abdominal pain, Denies belching, Denies melena, Denies bloating, Denies change in bowel habits, Denies dysphagia, Denies excessive flatus, Denies dyspepsia, Denies heartburn, Denies diarrhea, Denies loose stools, Denies nausea, Denies odynophagia and Denies vomiting Reports no additional complaints Musc Reports no additional complaints Neuro Reports no additional complaints Psych Reports no additional complaints Endo Reports no additional complaints Physical Exam Vital Signs: Last Vital Signs Pulse 77 02/03/23 11:55 BP 109/54 L 02/03/23 11:55 BMI result Body Mass Index 21.9 Const Other: Patient is in a wheelchair General: healthy appearing, no acute distress and well developed Nutritional Appearance: well nourished Orientation/consciousness: patient oriented x3 HEENT Head: Yes normal to inspection, Yes normocephalic and Yes atraumatic Face and sinus: Yes normal facial exam Mouth: Normal oral and palatal mucosa present Throat: Yes posterior oropharynx normal, Yes tonsils normal and Yes uvula midline Eyes General: appearance normal, both eyes and all related structures Neck Neck: Yes normal visual inspection, Yes full ROM and Yes trachea midline Thyroid: Thyroid normal Resp Effort & Inspection: normal respiratory effort, able to speak in complete sentences, no tracheal deviation and symmetric chest movement Auscultation: clear to auscultation bilaterally Cardio Rate: regular rate Heart sounds: S1 normal heart sound present and S2 normal heart sound present GI Inspection: Yes normal to inspection and No distended Palpation (GI): Soft to palpation, not firm, nontender and No hepatosplenomegaly present Auscultation: normal bowel sounds General: Yes no CVA tenderness Back/Spine/Pelvis Back: no CVA tenderness Skin General skin exam: elasticity normal, turgor normal and dry skin Neuro General: patient oriented x3 Psych Appearance: grossly normal Mental Status: mental status grossly normal Speech and movement: Normal speech and movement present Assessment & Plan Assessment & Plan (1) Diverticulosis: Code(s): K57.90 - Diverticulosis of intestine, part unspecified, without perforation or abscess without bleeding Plan: Continue high-fiber diet, continue Citrucel. Patient will follow-up with our office on as needed basis. shelter staff will contact our office if patient will experience any GI concerning symptoms. Patient is agreeable to plan of care and verbalizes understanding of instructions. He was given the opportunity to ask questions and all questions answered. Thank you for allowing me to participate in his care Coding Level of Care Code Est Pt Level 3 (32746) Diagnoses Diverticulosis K57.90 Time Spent (min) 25 Comment 15 minutes spent with patient and additional 10 minutes spent reviewing his records
== END 2023-02-03 12:16 | disposition home or self-care (01) ==
PROVIDERS: Visit Provider Nurse Practitioner Family
DX: K57.90 Diverticulosis of intestine, part unspecified, without perforation or abscess without bleeding (principal)
CPT/HCPCS: 99213

== ENCOUNTER → 2023-02-03 11:44 | Outpatient (BNVA) | payer MEDICARE, MEDICAID, SELFPAY | PROVIDERS: Visit Provider Nurse Practitioner Family | DX: K57.90 Diverticulosis of intestine, part unspecified, without perforation or abscess without bleeding (principal) | CPT/HCPCS: 99212 ==

== ENCOUNTER 2023-03-03 08:30 | Outpatient (REF) | payer MEDICARE, MEDICAID, SELFPAY ==
[2023-03-03 12:30] LABS: Estimated Average Glucose 120 mg/dL; Hemoglobin A1c % 5.8 % (<6.0)
[2023-03-03 15:16] LABS: Alanine Aminotransferase 17 U/L (0-40); Anion Gap 11 (12-20); Aspartate Amino Transferase 20 U/L (5-37); Blood Urea Nitrogen 15 mg/dL (9-16); Calcium 9.2 mg/dL (8.4-10.2); Carbon Dioxide 30 mmol/L (22-29); Chloride 105 mmol/L (96-108); Cholesterol 144 mg/dL (<200); Estimated Glomerular Filt Rate > 60; Glucose Fasting 117 mg/dL (60-99); HDL Cholesterol 31 mg/dL (>40); LDL Cholesterol Calculated 58 mg/dL (<100); Potassium 4.5 mmol/L (3.3-5.1); Sodium 141 mmol/L (135-145); Triglycerides 279 mg/dL (<150)
[2023-03-03 15:21] LABS: Thyroid Stimulating Hormone 2.45 uIU/mL (0.32-4.0)
== END 2023-03-03 08:31 | disposition home or self-care (01) ==
LOC: HO.HMGCLDS 08:30
PROVIDERS: PCP Internal Medicine; Visit Provider Internal Medicine
DX: E03.9 Hypothyroidism, unspecified (principal); E11.9 Type 2 diabetes mellitus without complications; E78.5 Hyperlipidemia, unspecified; Z79.4 Long term (current) use of insulin
CPT/HCPCS: 36415; 80048; 80061; 83036; 84439; 84443; 84450; 84460

== ENCOUNTER 2023-03-10 11:11 | Outpatient (AMB) | payer MEDICARE, MEDICAID, SELFPAY ==
--- NOTE | 2023-03-10 11:52 | A.OFFPC_ITS ---
Vital Signs 03/10/23 11:55 Height 5 ft 4 in Weight 136 lb BMI 23.3 BP 98/58 L Blood Pressure Location Lt brachial Position Sitting Pulse 69 Pulse Source Pulse Oximeter Pulse Oximetry (%) 95 Oxygen Delivery Method Room Air Intake Visit Reasons: 6m follow up DM Intake Note: Pt is here today for his 6mo. f/u DM Allergies clindamycin [CLINDAMYCIN] Allergy (Unknown, Verified 03/11/23 01:53) UNKNOWN Sulfa (Sulfonamide Antibiotics) [SULFA (SULFONAMIDE ANTIBIOTICS)] Allergy (Unknown, Verified 03/11/23 01:53) UNKNOWN tuberculin, purified protein deriva [TB TEST] Allergy (Unknown, Verified 03/11/23 01:53) UNKNOWN Medication List - Last Reconciled 03/11/23 by Nicole Anguiano MD acetaminophen (Tylenol) 650 mg (2 x 325 mg) PO Q6H PRN aspirin 81 mg PO DAILY atorvastatin (Lipitor) 20 mg PO BEDTIME bethanechol chloride 25 mg PO BID 90 days rqylarcay-aocbcunm-oymaowa ala 50-200-25 mg 1 tab PO DAILY blood sugar diagnostic (Contour Next Test Strips) Check fasting blood sugar once a day every morning; calcium carbonate (Campos-Gest Antacid) 200 mg PO BID divalproex ER 1,000 mg PO BEDTIME docusate sodium (Stool Softener) 100 mg PO BID guaifenesin (Cough Syrup) 200 mg (10 mL) PO Q4H PRN ibuprofen 600 mg PO QID PRN levothyroxine 75 mcg PO QAM lidocaine 5% (Lidoderm) 1 patch topical DAILY PRN MDD remove after 12 hours metformin 500 mg PO DAILY methylcellulose (laxative) (Citrucel) 500 mg PO DAILY tgsqukhd-qpt-huwibta sulfate 4.5 mg iron (One Daily Multivitamins with Minerals) 1 tab PO DAILY ceypcscwrexss-WY-ncsewozmskr 2.5-5-50 mg/5 mL (Robitussin Cough and Cold CF) 15 mL PO Q4H PRN sertraline 75mg terazosin 5 mg PO BEDTIME 90 days Tobacco use date assessed: 03/10/23 Dental Screening Dental Screen Date: 03/10/23 HPI 6m follow up DM HPI Details 52-year-old male here today for follow-u p on his diabetes mellitus. He currently lives in a detention, has his medications and meals prepared for him , pair his caregiver. He however eats a lot of junk food, specially potato chips , and does not get any exercise at all. His recent labs showed fall lipids, thyroid levels, vitamin-D and hemoglobin A1c level which came back at 5.8%, but triglycerides and LDL cholesterol are higher than last check. [facility] Medical History Acquired deformity of toenail Acquired hypothyroidism ADHD (attention deficit hyperactivity disorder) Anemia Benign prostatic hyperplasia with lower urinary tract symptoms CKD (chronic kidney disease), stage III Cognitive disorder Controlled diabetes mellitus type II without complication COVID-19 vaccine series completed Depression Diverticulosis Dyslipidemia HIV (human immunodeficiency virus infection) Lives in detention Nephrolithiasis Testicular hypofunction Tubular adenoma Surgical History No pertinent past surgical history Family History Father Unknown family medical history Mother Unknown family medical history Brother No problems noted. Sister No problems noted. Daughter No problems noted. Social History Housing: Other Housing Other:: assisted Alcohol intake: never Patient Tobacco Use Status: Never used Tobacco e-Cigarette/Vaping Use: Never Used service: No Current occupational status: disabled Current occupational exposures/hazards: No Cognitive needs: No Hearing needs: No Vision needs: Yes Questionnaire PHQ-9 Over the last 2 weeks, how often have you been bothered by any of the following problems? Depression Screening Interpretation: Negative Source: Developed by Drs. Paulie Holden, Tonia Lerma, Malvin Bennett and colleagues, with an educational gisela from [employer]. Thrive Questionnaire Date Thrive assessed: 09/08/22 AUDIT C Alcohol Use Questionnaire (AUDIT-C) 1. How often do you have a drink containing alcohol?: Never Total Score: 0 ESHA-7 AMB Questionnaire ESHA-7 Date ESHA - 7 assessed: 09/08/22 Source: Developed by Drs. Paulie Holden, Tonia Lerma, Malvin Bennett and colleagues, with an educational gisela from [employer] Review of Systems Const Denies weight gain and Denies weight loss Eyes Details: [facility] ophthalmology Denies change in vision, Denies eye discharge and Denies itchy eyes ENT Reports no additional complaints, Denies dysphagia and Denies odynophagia Card Reports no additional complaints Resp Reports no additional complaints and Denies wheezing GI Denies abdominal pain, Denies belching, Denies melena, Denies bloating, Denies change in bowel habits, Denies dysphagia, Denies excessive flatus, Denies dyspepsia, Denies heartburn, Denies diarrhea, Denies loose stools, Denies nausea, Denies odynophagia and Denies vomiting Reports no additional complaints Musc Reports no additional complaints Skin/Breast Denies lesions and Denies rash Neuro Reports no additional complaints Psych Reports no additional complaints Endo Reports no additional complaints Joe/Lymph Denies easy bruising Aller/Immun Denies itchy eyes, Denies seasonal rhinorrhea and Denies wheezing Physical exam (Primary Care) Vital Signs: Last Vital Signs Pulse 69 03/10/23 11:55 BP 98/58 L 03/10/23 11:55 Pulse Ox 95 03/10/23 11:55 Oxygen Delivery Method Room Air 03/10/23 11:55 BMI result Body Mass Index 23.3 Tobacco/Smoking Status: Tobacco use Status Tobacco use date assessed 03/10/23 03/10/23 11:59 Patient Tobacco Use Status Never used Tobacco 03/10/23 11:59 e-Cigarette/Vaping Use Never Used 03/10/23 11:59 Depression Screening Interpretation: Negative Thrive Assessment: Date of Thrive Assessment Date Thrive assessed 09/08/22 03/10/23 11:59 Advance Care Planning discussion: Completed/Scanned Date of discussion: 03/10/23 Who was present: Patient and caregiver Forms completed: MOLST Time spent: 16-45 minutes Actual minutes spent: 16 Const Other: Alert oriented x3, no acute distress noted ambulatory with assistance Orientation/consciousness: patient oriented x3 HENMT Head: Yes normocephalic Ears: external ears normal, TM's normal bilaterally and EAC's normal General nose exam: Normal external nose present and Normal nares present Face and sinus: Yes face symmetric Mouth: Normal oral and palatal mucosa present and moist mucous membranes Eyes General: appearance normal, both eyes and all related structures Neck Neck: Yes full ROM, Yes no lymphadenopathy and Yes supple Chest Chest palpation & inspection: normal inspection of the chest Resp Auscultation: clear to auscultation bilaterally Cardio Rate: regular rate Rhythm: regular rhythm Heart sounds: S1 normal heart sound present and S2 normal heart sound present GI Palpation (GI): Soft to palpation, nontender, no guarding and no masses Auscultation: normal bowel sounds General: Yes no CVA tenderness Back/Spine/Pelvis Back: no CVA tenderness and No back tenderness Skin General skin exam: no rashes or lesions noted Neuro General: patient oriented x3, moves all extremities, Normal light touch and pain sensation, no focal motor deficits and CN's II-XI intact bilaterally Gait exam (Neuro): Ataxic gait present and Assisted gait required Extrem General: Yes full ROM, Yes no joint enlargement, Yes no clubbing, cyanosis or edema and Yes no calf tenderness Psych Appearance: grossly normal and well kempt Mental Status: mental status grossly normal Speech and movement: Pressured speech present Affect: Animated affect present Attitude: cooperative Results Reviewed Results Reviewed: ENTERED: 03/03/[address]: ORDERED: Met Prof Fast, AST, ALT, Lipid Panel, Free T4, TSH Test Result Flag Reference Site Sodium 141 135-145 mmol/L Potassium 4.5 3.3-5.1 mmol/L CL 105 96-108 mmol/L CO2 30 H 22-29 mmol/L Gap 11 L 12-20 BUN 15 9-16 mg/dL Creat 1.20 0.5-1.4 mg/dL EGFR > 60 NOTE: For -[place] individuals, multiply the result by 1.210. Chronic Kidney Disease: Estimated GFR < 60 mL/min/1.73m2 Severe Kidney Disease: Estimated GFR < 15 mL/min/1.73m2 FBS 117 H 60-99 mg/dL A fasting glucose from 100-125 mg/dl is considered impaired (pre-diabetes). CA 9.2 8.4-10.2 mg/dL AST (GOT) 20 5-37 U/L ALT (GPT) 17 0-40 U/L Triglyceride 279 H <150 mg/dL Desirable Triglyceride: less than 150 mg/dL Borderline High Triglyceride 150-199 mg/dL High Triglyceride: 200-499 mg/dL Very High Triglyceride: greater than or equal to 5OO mg/dL Cholesterol 144 <200 mg/dL Desirable Cholesterol: less than 200 mg/dL Borderline High Cholesterol: 200-239 mg/dL High Cholesterol: greater than 239 mg/dL LDL Calculated 58 <100 mg/dL Desirable LDL: less than 100 mg/dL Near Optimal/Above Optimal LDL: 110-129 mg/dL Borderline High LDL: 130-159 mg/dL High LDL: 160-189 mg/dL Very High LDL: greater than or equal to 190 mg/dL HDL 31 L >40 mg/dL Desirable HDL: greater than 40 mg/dL Note: This HDL assay may give artificially low results in patients with liver disease. Free T4 0.80 0.71-1.85 ng/dL TSH 3rd Gen. 2.45 0.32-4.0 uIU/mL TSH 3rd Generation ([facility]) SPEC : [id number] SANTOS: 03/03/23 STATUS: COMP REQ : [id number] RECD: 03/03/[address]: Nicole Anguiano MD COMP: 03/03/23 ENTERED: 03/03/[address] [facility] [address]: ORDERED: Hgb A1c Test Result Flag Reference Site A1c % 5.8 <6.0 % Hemoglobin A1C Reference Range Adults: 4.8 - 6.0 % Non diabetic: < 6.0 % Goal: < 7.0 % Additional Action Suggested: > 8.0 % Note: Hemoglobin A1c results are invalid for patients with abnormal amounts of HbF. Blood transfusions may impact the HbA1c concentration in the patient sample. Est. Avg. Gluc 120 mg/dL eAG = Estimated average glucose which is %A1C expressed as average glucose, using the formula of the I5S-Wfanlin Average Glucose study (ADAG), Diabetes Care, Vol.31,#8, 2007 Assessment and Plan Assessment & Plan (1) Dyslipidemia: Code(s): E78.5 - Hyperlipidemia, unspecified Plan: Reviewed recent fasting lab results with patient and caregiver, and noted that LDL cholesterol and triglycerides are steadily going up. Advised to adhere to healthy eating habits, cut back on lot of junk food and processed food, and try to get some form of exercise on a daily basis at home. 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 Will continue metformin 500 mg once a day continue to check fasting blood sugar at home, maintain log and bring to next appointment for review. Reinforced diabetic diet and regular exercise with patient. Counseled regarding importance of yearly diabetes retinopathy screening. Patient advised to inspect feet daily, for any signs of injury, callus or infection. Compliance with diet and regular exercise again stressed. Blood pressure goal is less than 130/80, goal LDL is less than 100 and goal hemoglobin A1c is less than 7% follow-up appointment made in---months, after fasting labs done. (3) Acquired hypothyroidism: Code(s): E03.9 - Hypothyroidism, unspecified Plan: Thyroid levels are within normal limits, continued on current dose of levothyroxine 75 mcg daily in a.m. Orders: Orders Basic Metabolic Panel Fasting 6 Months E03.9 - Hypothyroidism, unspecified, E11.9 - Type 2 diabetes mellitus without complications, E78.5 - Hyperlipidemia, unspecified Hemoglobin A1c 6 Months E03.9 - Hypothyroidism, unspecified, E11.9 - Type 2 diabetes mellitus without complications, E78.5 - Hyperlipidemia, unspecified Lipid Panel 6 Months E03.9 - Hypothyroidism, unspecified, E11.9 - Type 2 diabetes mellitus without complications, E78.5 - Hyperlipidemia, unspecified Aspartate Amino Transferase 6 Months E03.9 - Hypothyroidism, unspecified, E11.9 - Type 2 diabetes mellitus without complications, E78.5 - Hyperlipidemia, unspecified Alanine Aminotransferase 6 Months E03.9 - Hypothyroidism, unspecified, E11.9 - Type 2 diabetes mellitus without complications, E78.5 - Hyperlipidemia, unspecified Microalbumin, Random (w Creat) 6 Months E03.9 - Hypothyroidism, unspecified, E11.9 - Type 2 diabetes mellitus without complications, E78.5 - Hyperlipidemia, unspecified Thyroid Stimulating Hormone 6 Months E03.9 - Hypothyroidism, unspecified, E11.9 - Type 2 diabetes mellitus without complications, E78.5 - Hyperlipidemia, unspecified Free T4 (Free Thyroxine) 6 Months E03.9 - Hypothyroidism, unspecified, E11.9 - Type 2 diabetes mellitus without complications, E78.5 - Hyperlipidemia, unspecified Coding Level of Care Code Est Pt Level 4 (56535) Diagnoses Dyslipidemia E78.5 Controlled type 2 diabetes mellitus without complication, with long-term current use of insulin E11.9; Z79.4 Diabetes mellitus penitentiary insulin use: with penitentiary use Acquired hypothyroidism E03.9 Additional Codes Vital Signs *Quality* - Advance Care Planning discussion: Completed/Scanned ([id number]) Vital Signs *Quality* - Time spent: 16-45 minutes ([id number])
[2023-03-10 11:55] VITALS: BP 98/58; PULSE 69; O2SAT 95; BMI 23.3
== END 2023-03-10 14:31 | disposition home or self-care (01) ==
LOC: HO.HMGC 11:11
PROVIDERS: PCP Internal Medicine; Visit Provider Internal Medicine
DX: E78.5 Hyperlipidemia, unspecified (principal); E11.9 Type 2 diabetes mellitus without complications; Z79.4 Long term (current) use of insulin; E03.9 Hypothyroidism, unspecified; Z00.00 Encounter for general adult medical examination without abnormal findings
CPT/HCPCS: 99214; 99497

== ENCOUNTER 2023-05-01 13:12 | Outpatient (AMB) | payer MEDICARE, MEDICAID, SELFPAY ==
--- NOTE | 2023-05-01 13:24 | HO.NEPHOV ---
HPI HPI Comments History of Present Illness Details 52-year-old man with mild chronic kidney disease here for follow-up. There was accompanied by caregiver. No new complaints today. [facility] Medical History Acquired deformity of toenail Acquired hypothyroidism ADHD (attention deficit hyperactivity disorder) Anemia Benign prostatic hyperplasia with lower urinary tract symptoms CKD (chronic kidney disease), stage III Cognitive disorder Controlled diabetes mellitus type II without complication COVID-19 vaccine series completed Depression Diverticulosis Dyslipidemia HIV (human immunodeficiency virus infection) Lives in senior living Nephrolithiasis Testicular hypofunction Tubular adenoma Surgical History No pertinent past surgical history Family History Father Unknown family medical history Mother Unknown family medical history Brother No problems noted. Sister No problems noted. Daughter No problems noted. Social History Housing: Other Housing Other:: longterm Alcohol intake: never Patient Tobacco Use Status: Never used Tobacco e-Cigarette/Vaping Use: Never Used service: No Current occupational status: disabled Current occupational exposures/hazards: No Cognitive needs: No Hearing needs: No Vision needs: Yes Vital Signs 05/01/23 13:26 Height 5 ft 4 in BP 100/60 Blood Pressure Location Rt brachial Position Sitting Pulse 76 Pulse Source Pulse Oximeter Pulse Oximetry (%) 97 Oxygen Delivery Method Room Air Intake Medication List - Last Reconciled 05/01/23 by Duane Rapp MD acetaminophen (Tylenol) 650 mg (2 x 325 mg) PO Q6H PRN atorvastatin (Lipitor) 20 mg PO BEDTIME bethanechol chloride 25 mg PO BID 90 days wuwodtdqy-ooqlbnca-ebztfbo ala 50-200-25 mg 1 tab PO DAILY blood sugar diagnostic (Contour Next Test Strips) Check fasting blood sugar once a day every morning; calcium carbonate (Campos-Gest Antacid) 200 mg PO BID divalproex ER 1,000 mg PO BEDTIME docusate sodium (Stool Softener) 100 mg PO BID guaifenesin (Cough Syrup) 200 mg (10 mL) PO Q4H PRN ibuprofen 600 mg PO QID PRN levothyroxine 75 mcg PO QAM lidocaine 5% (Lidoderm) 1 patch topical DAILY PRN MDD remove after 12 hours metformin 500 mg PO DAILY methylcellulose (laxative) (Citrucel) 500 mg PO DAILY jtsymgoy-znw-tslxilw sulfate 4.5 mg iron (One Daily Multivitamins with Minerals) 1 tab PO DAILY urehjozsndzto-FM-knpcekwvitx 2.5-5-50 mg/5 mL (Robitussin Cough and Cold CF) 15 mL PO Q4H PRN sertraline 75mg terazosin 5 mg PO BEDTIME 90 days Physical Exam Vital Signs: Last Vital Signs Pulse 76 05/01/23 13:26 BP 100/60 05/01/23 13:26 Pulse Ox 97 05/01/23 13:26 Oxygen Delivery Method Room Air 05/01/23 13:26 Const General: comfortable Nutritional Appearance: well nourished Orientation/consciousness: patient oriented x3 HEENT Head: No normal to inspection Mouth: moist mucous membranes Neck Neck: Yes supple and Yes no JVD Resp Auscultation: clear to auscultation bilaterally, no rales and rub present Cardio Jugular venous distension: no JVD Palpation: no palpable S3 and no palpable S4 Heart sounds: no rubs GI Palpation (GI): Soft to palpation and nontender Percussion: No Fluid wave present General: Yes no CVA tenderness Back/Spine/Pelvis Back: no CVA tenderness Skin General skin exam: no rashes or lesions noted Neuro General: patient oriented x3 Extrem General: Yes no pedal edema and No clubbing Assessment & Plan Assessment & Plan (1) CKD (chronic kidney disease), stage III: Code(s): N18.30 - Chronic kidney disease, stage 3 unspecified Plan 52-year-old man with mild CKD. Renal function stable with creatinine 1.2. Blood pressure control. No evidence of anemia secondary hyperparathyroidism. Mild thrombocytopenia but platelet count has improved Goal is to slow the progression of renal disease Avoid nephrotoxic agents. No changes were made today. Encouraged to increase fluid intake. Stay on a low-sodium diet Orders: Orders Electrolytes 6 Months N18.30 - Chronic kidney disease, stage 3 unspecified Blood Urea Nitrogen 6 Months N18.30 - Chronic kidney disease, stage 3 unspecified Creatinine 6 Months N18.30 - Chronic kidney disease, stage 3 unspecified Calcium 6 Months N18.30 - Chronic kidney disease, stage 3 unspecified Coding Level of Care Code Est Pt Level 3 (92753) Diagnoses CKD (chronic kidney disease), stage III N18.30
[2023-05-01 13:26] VITALS: BP 100/60; PULSE 76; O2SAT 97
== END 2023-05-01 13:38 | disposition home or self-care (01) ==
LOC: HO.HKA 13:12
PROVIDERS: PCP Internal Medicine; Visit Provider Internal Medicine Hypertension Specialist
DX: N18.30 Chronic kidney disease, stage 3 unspecified (principal)
CPT/HCPCS: 99213

== ENCOUNTER → 2023-05-01 13:12 | Outpatient (BNVA) | payer MEDICARE, MEDICAID, SELFPAY | PROVIDERS: PCP Internal Medicine; Visit Provider Internal Medicine Hypertension Specialist | DX: N18.30 Chronic kidney disease, stage 3 unspecified (principal) | CPT/HCPCS: 99212 ==

== ENCOUNTER 2023-07-24 15:09 | Outpatient (AMB) | payer MEDICARE, MEDICAID, SELFPAY ==
--- NOTE | 2023-07-24 15:20 | A.OFFVIS_ITS ---
Intake Intake Visit Reasons: 6m follow up Intake Note: Patient is Present for Follow Up Urology Medication: Bethanechol, Terazosin Antibiotic Allergies: Clindamycin, Sulfa Blood Thinners: Aspirin Allergies clindamycin [CLINDAMYCIN] Allergy (Unknown, Verified 07/24/23 15:21) UNKNOWN Sulfa (Sulfonamide Antibiotics) [SULFA (SULFONAMIDE ANTIBIOTICS)] Allergy (Unknown, Verified 07/24/23 15:21) UNKNOWN tuberculin, purified protein deriva [TB TEST] Allergy (Unknown, Verified 07/24/23 15:21) UNKNOWN Medication List - Last Reconciled 07/24/23 by Fox Sandoval MD acetaminophen (Tylenol) 650 mg (2 x 325 mg) PO Q6H PRN atorvastatin (Lipitor) 20 mg PO BEDTIME bethanechol chloride 25 mg PO BID 90 days qhykjpyqa-aixurjan-ctvlvke ala 50-200-25 mg 1 tab PO DAILY blood sugar diagnostic (Contour Next Test Strips) Check fasting blood sugar once a day every morning; calcium carbonate (Campos-Gest Antacid) 200 mg PO BID divalproex ER 1,000 mg PO BEDTIME docusate sodium (Stool Softener) 100 mg PO BID guaifenesin (Cough Syrup) 200 mg (10 mL) PO Q4H PRN ibuprofen 600 mg PO QID PRN levothyroxine 75 mcg PO QAM metformin 500 mg PO DAILY methylcellulose (laxative) (Citrucel) 500 mg PO DAILY vumvzlev-cyr-doctykt sulfate 4.5 mg iron (One Daily Multivitamins with Minerals) 1 tab PO DAILY zqneyuzanvxox-KL-tmamwcdzsmj 2.5-5-50 mg/5 mL (Robitussin Cough and Cold CF) 15 mL PO Q4H PRN sertraline 75mg terazosin 5 mg PO BEDTIME 90 days HPI HPI Comments History of Present Illness Details Orlando is a pleasant male. He is a resident of a care facility. He is a patient of Dr. Anguiano. 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 b.i.d. PSA 09/18 0.4 limited fluids after 20:00, sit to void Renal cyst Renal cyst 1 cm right upper pole Imaging - 01/17 CT scan 1 cm right upper cyst ian e, no stones Lower Urinary Tract Symptoms: stable imaging. Current visit is for further evaluation of, lower urinary tract symptoms, pred ominate obstructive symptoms. Current treatment includes medication, alpha samuel, 5-AR. Prostate Symptom Score Moderate (9-19), Bother 3 05/17 , Mild (0-8), Bother 2. Symptoms include incomplete emptying, weak stream, nocturia (>2), and are progressing. Results from testing include cystoscopy no abnormality seen 05/17 Prostate volume < 30 gm. imaging - 12/17 renal ultrasound 9 mm cyst on right, 3 mm stone on left Associated conditions - HIV, diabetes, prior head injury Testing at next visit will include bladder scan [facility] Medical History Anemia Diverticulosis Acquired hypothyroidism Tubular adenoma Lives in alf COVID-19 vaccine series completed Testicular hypofunction Cognitive disorder Depression ADHD (attention deficit hyperactivity disorder) CKD (chronic kidney disease), stage III Benign prostatic hyperplasia with lower urinary tract symptoms HIV (human immunodeficiency virus infection) Dyslipidemia Acquired deformity of toenail Controlled diabetes mellitus type II without complication Nephrolithiasis Surgical History No pertinent past surgical history Family History Father Unknown family medical history Mother Unknown family medical history Brother No problems noted. Sister No problems noted. Daughter No problems noted. Social History Housing: Other Housing Other:: long-term Alcohol intake: never Patient Tobacco Use Status: Never used Tobacco e-Cigarette/Vaping Use: Never Used service: No Current occupational status: disabled Current occupational exposures/hazards: No Cognitive needs: No Hearing needs: No Vision needs: Yes Review of Systems Const Denies chills and Denies fever(s) Card Reports no additional complaints and Denies syncope Resp Denies cough GI Denies abdominal pain and Denies heartburn Reports as per HPI and Denies change in libido Neuro Denies syncope Psych Denies change in libido Endo Denies change in libido Physical Exam Const General: cooperative, healthy appearing, comfortable and no acute distress Orientation/consciousness: patient oriented x3 HEENT Face and sinus: Yes normal facial exam Mouth: moist mucous membranes Neck Neck: Yes normal visual inspection, Yes full ROM and Yes trachea midline Chest Chest palpation & inspection: normal inspection of the chest Resp Effort & Inspection: normal respiratory effort, able to speak in complete sentences and no respiratory distress GI Inspection: Yes normal to inspection Back/Spine/Pelvis Cervical Spine: normal cervical lordosis Thoracic/Lumbar Spine: thoracic and lumbar spine normal to inspection Skin General skin exam: no rashes or lesions noted Neuro General: patient oriented x3, gait normal, tone normal and moves all extremities Extrem General: Yes normal to inspection and Yes capillary refill normal Assessment & Plan Assessment & Plan (1) Benign prostatic hyperplasia with lower urinary tract symptoms: Comment: Followed by Dr. Sandoval Code(s): N40.1 - Benign prostatic hyperplasia with lower urinary tract symptoms (2) Nephrolithiasis: Comment: Followed by Dr. Sandoval Code(s): N20.0 - Calculus of kidney Plan Continue q.6 month surveillance Medications: Refilled terazosin 5 mg PO BEDTIME 90 caps 1RF 90 days bethanechol chloride 25 mg PO BID 180 tabs 1RF 90 days N39.0 - Urinary tract infection, site not specified, N40.1 - Benign prostatic hyperplasia with lower urinary tract symptoms Patient Instructions: Imaging studies, laboratory and physical exam results were discussed and reviewed in detail. No major barriers to patient understanding were identified. An opportunity to ask questions regarding the treatment plan was provided. All questions were answered. The patient expressed understanding and agreement with the above treatment plan. The patient is aware they should contact our office by phone for worsening of their current condition or the appearance of new urologic symptoms. Compliance is encouraged with any medications and followup testing that is ordered. It is a privilege to participate in the urologic care of your patient. If you have any questions or concerns regarding treatment for the above conditions, or other urologic issues, please do not hesitate to contact me. The office telephone contact is [phone]. This note is constructed using voice recognition software. While every effort has been made to ensure accuracy corporate secretary errors may have been included. Yours sincerely, Dr Fox Sandoval MD, [facility] - Urology Providers of Expert, Compassionate Care for the Genitourinary System Coding Level of Care Code Est Pt Level 4 (47564) Diagnoses Benign prostatic hyperplasia with lower urinary tract symptoms N40.1 Nephrolithiasis N20.0
== END 2023-07-24 15:43 | disposition home or self-care (01) ==
PROVIDERS: PCP Internal Medicine; Visit Provider Urology
DX: N40.1 Benign prostatic hyperplasia with lower urinary tract symptoms (principal); N20.0 Calculus of kidney
CPT/HCPCS: 99214

== ENCOUNTER → 2023-07-24 15:09 | Outpatient (BNVA) | payer MEDICARE, MEDICAID, SELFPAY | PROVIDERS: PCP Internal Medicine; Visit Provider Urology | DX: N40.1 Benign prostatic hyperplasia with lower urinary tract symptoms (principal); R39.11 Hesitancy of micturition; N28.1 Cyst of kidney, acquired; Z87.442 Personal history of urinary calculi | CPT/HCPCS: 99212 ==

== ENCOUNTER 2023-09-25 11:40 | Outpatient (REF) | payer MEDICARE, MEDICAID, SELFPAY ==
[2023-09-25 12:43] LABS: Estimated Average Glucose 123 mg/dL; Hemoglobin A1C 144.4977 umol/L; Hemoglobin A1c % 5.9 % (<6.0)
[2023-09-25 13:16] LABS: Alanine Aminotransferase 16 U/L (0-40); Anion Gap 10 (12-20); Aspartate Amino Transferase 18 U/L (5-37); Blood Urea Nitrogen 16 mg/dL (9-16); Calcium 9.3 mg/dL (8.4-10.2); Carbon Dioxide 29 mmol/L (22-29); Chloride 107 mmol/L (96-108); Cholesterol 128 mg/dL (<200); Estimated Glomerular Filt Rate 57; Glucose Fasting 127 mg/dL (60-99); HDL Cholesterol 31 mg/dL (>40); LDL Cholesterol Calculated 53 mg/dL (<100); Potassium 4.8 mmol/L (3.3-5.1); Sodium 141 mmol/L (135-145); Triglycerides 222 mg/dL (<150)
[2023-09-25 13:33] LABS: Free T4 (Free Thyroxine) 0.89 ng/dL (0.71-1.85); Thyroid Stimulating Hormone 1.27 uIU/mL (0.32-4.0)
[2023-09-28 13:08] LABS: Creatinine Urine 150.01 mg/dL; Microalbum/Creatinine Ratio Ur 28.6 ug/mg cr (<30)
== END 2023-09-25 11:41 | disposition home or self-care (01) ==
LOC: HO.LAB 11:40
PROVIDERS: PCP Internal Medicine; Visit Provider Internal Medicine
DX: E03.9 Hypothyroidism, unspecified (principal); E11.9 Type 2 diabetes mellitus without complications; E78.5 Hyperlipidemia, unspecified
CPT/HCPCS: 36415; 80048; 80061; 82043; 82570; 83036; 84439; 84443; 84450; 84460

== ENCOUNTER 2023-10-15 11:01 | Outpatient (AMB) | payer MEDICARE, MEDICAID, SELFPAY ==
[2023-10-15 11:31] VITALS: BP 100/60; PULSE 96; O2SAT 98; BMI 23.2
--- NOTE | 2023-10-15 11:31 | MHC.PC.OV ---
Vital Signs 10/15/23 11:31 Height 5 ft 4 in Weight 135 lb BMI 23.2 BP 100/60 Blood Pressure Location Rt brachial Position Sitting Pulse 96 Pulse Source Pulse Oximeter Pulse Oximetry (%) 98 Oxygen Delivery Method Room Air Intake Visit Reasons: Annual PE Intake Note: Pt is here today for his PE Allergies clindamycin [CLINDAMYCIN] Allergy (Unknown, Verified 10/15/23 12:06) UNKNOWN Sulfa (Sulfonamide Antibiotics) [SULFA (SULFONAMIDE ANTIBIOTICS)] Allergy (Unknown, Verified 10/15/23 12:06) UNKNOWN tuberculin, purified protein deriva [TB TEST] Allergy (Unknown, Verified 10/15/23 12:06) UNKNOWN Medication List - Last Reconciled 10/15/23 by Nicole Anguiano MD acetaminophen (Tylenol) 650 mg (2 x 325 mg) PO Q6H PRN atorvastatin (Lipitor) 20 mg PO BEDTIME bethanechol chloride 25 mg PO BID bethanechol chloride 25 mg PO BID 90 days wupgkxakd-fvqfyykt-oeunpvk ala 50-200-25 mg 1 tab PO DAILY blood sugar diagnostic (Contour Next Test Strips) Check fasting blood sugar once a day every morning; calcium carbonate (Campos-Gest Antacid) 200 mg PO BID divalproex ER 1,000 mg PO BEDTIME docusate sodium (Stool Softener) 100 mg PO BID guaifenesin (Cough Syrup) 200 mg (10 mL) PO Q4H PRN levothyroxine 75 mcg PO QAM metformin 500 mg PO DAILY methylcellulose (laxative) (Citrucel) 500 mg PO DAILY fyveneik-yrr-qkjdicm sulfate 4.5 mg iron (One Daily Multivitamins with Minerals) 1 tab PO DAILY sertraline 75mg terazosin 5 mg PO BEDTIME 90 days Tobacco use date assessed: 10/15/23 Dental Screening Dental Screen Date: 10/15/23 Did you have a dental visit in the last 12 months?: Yes Did you have a dental problem in the last 6 months where you did not have access to dental care?: No Was dental information given to patient?: Patient has dentist HPI Annual PE HPI Details 52-year-old male with past medical history significant for AIDS dementia, lipodystrophy, hyperlipidemia, ADHD, mild CKD and benign prostatic hyperplasia with lower urinary tract symptoms and history of nephrolithiasis, diabetes mellitus controlled with metformin, here today for his physical exam. He is currently being followed by infectious disease especially, Dr. Willy Membreno at [facility], sees Urology and Nephrology. He is up-to-date with his screening colonoscopy, done in 2020 with removal of a tubular adenoma, repeat due again in 2025, as per Dr. Aiken He is up-to-date with his vaccines, received his COVID vaccination, and booster, pneumococcal vaccination, and shingles vaccine. He goes to [facility] for his routine diabetes retinopathy screening, and sees Dr. Isaac for his yearly diabetes foot exam. [facility] Medical History (Updated 10/15/23 @ 13:50 by Nicole Anguiano MD) History of adenomatous polyp of colon AIDS dementia CKD (chronic kidney disease) stage 1, GFR 90 ml/min or greater Anemia Diverticulosis Acquired hypothyroidism Lives in [place] COVID-19 vaccine series completed Testicular hypofunction Depression ADHD (attention deficit hyperactivity disorder) Benign prostatic hyperplasia with lower urinary tract symptoms Dyslipidemia Acquired deformity of toenail Controlled diabetes mellitus type II without complication Nephrolithiasis Surgical History No pertinent past surgical history Family History Father Unknown family medical history Mother Unknown family medical history Brother No problems noted. Sister No problems noted. Daughter No problems noted. Social History Housing: Other Housing Other:: retirement Alcohol intake: never Patient Tobacco Use Status: Never used Tobacco e-Cigarette/Vaping Use: Never Used service: No Current occupational status: disabled Current occupational exposures/hazards: No Cognitive needs: No Hearing needs: No Vision needs: Yes Questionnaire PHQ-9 Over the last 2 weeks, how often have you been bothered by any of the following problems? 1. Little interest or pleasure in doing things: not at all 2. Feeling down, depressed, or hopeless: not at all 3. Trouble falling or staying asleep, or sleeping too much: not at all 4. Feeling tired or having little energy: not at all 5. Poor appetite or overeating: not at all 6. Feeling bad about yourself - or that you are a failure or have let yourself or your family down: not at all 7. Trouble concentrating on things, such as reading the newspaper or watching television: not at all 8. Moving or speaking so slowly that other people could have noticed. Or the opposite - being so fidgety or restless that you have been moving around a lot more than usual: not at all 9. Thoughts that you would be better off or of hurting yourself in some way: not at all Total score: 0 Depression Screening Interpretation: Negative (Has depression, and ADHD, stable and controlled on present treatment, sees Dr. Bryon Isidro) Depression Screening Done: Yes 24345 - PHQ-9 Billing: Yes Source: Developed by Drs. Paulie Holden, Tonia Lerma, Malvin Bennett and colleagues, with an educational gisela from [employer]. Thrive Questionnaire Date Thrive assessed: 10/15/23 I am a: Patient What is your living situation today?: I have a steady place to live Within the past 12 months, did the food you bought not last and you didn't have the money to get more?: Never true Within the past 12 months, did you worry whether your food would run out before you got money to buy more?: Never true Do you have trouble paying for medicines?: Yes Do you have trouble getting transportation to medical appointments?: No Do you have trouble paying your heating and electricity bill?: Yes Do you have trouble taking care of your child, family member or friend?: Yes Do you have trouble with day-to-day activities such as bathing, preparing meals, shopping, managing finances, etc.?: Yes Are you currently unemployed and looking for a job?: No Are you interested in more education?: No THRIVE Score: 1 ESHA-7 AMB Questionnaire ESHA-7 Date ESHA - 7 assessed: 10/15/23 Feeling nervous, anxious, or on edge: 0 = Not at all Not being able to stop or control worryin = Not at all Worrying too much about different things: 0 = Not at all Trouble relaxin = Not at all Being so restless that it is hard to sit still: 0 = Not at all Becoming easily annoyed or irritable: 0 = Not at all Feeling afraid as if something awful might happen: 0 = Not at all Total ESHA-7 score (0-4 normal; 5-9 mild; 10-14 moderate; 15-21 severe): 0 Source: Developed by Drs. Paulie Holden, Tonia Lerma, Malvin Bennett and colleagues, with an educational gisela from [employer]. Review of Systems Const Denies chills, Denies fever(s) and Denies headache(s) Eyes Details: Sees [facility] ophthalmology Denies change in vision ENT Denies dizziness, Denies headache(s), Denies mouth lesions, Denies nasal discharge and Reports disequilibrium Card Denies chest pain, Denies chest pain with activity, Denies syncope, Denies rapid heart rate, Denies irregular heart rhythm, Denies lightheadedness and Denies dyspnea Resp Denies cough, Denies dyspnea and Denies wheezing GI Denies abdominal pain and Denies heartburn Reports no additional complaints Musc Reports abnormal gait, Reports muscle weakness and Reports stiffness Skin/Breast Denies lesions and Denies rash Neuro Reports abnormal gait, Denies dizziness, Denies syncope, Denies headache(s) and Reports disequilibrium Psych Reports as per HPI Endo Reports no additional complaints Joe/Lymph Denies easy bruising Aller/Immun Denies seasonal rhinorrhea and Denies wheezing Physical exam (Primary Care) Vital Signs: Last Vital Signs Pulse 96 10/15/23 11:31 BP 100/60 10/15/23 11:31 Pulse Ox 98 10/15/23 11:31 Oxygen Delivery Method Room Air 10/15/23 11:31 BMI result Body Mass Index 23.2 Tobacco/Smoking Status: Tobacco use Status Tobacco use date assessed 10/15/23 10/15/23 11:32 Patient Tobacco Use Status Never used Tobacco 10/15/23 11:32 e-Cigarette/Vaping Use Never Used 10/15/23 11:32 PHQ-9: PHQ-9 Score PHQ-9: Total score 0 10/15/23 13:01 Depression Screening Interpretation: Negative (Has depression, and ADHD, stable and controlled on present treatment, sees Dr. Bryon Isidro) Thrive Assessment: Date of Thrive Assessment Date Thrive assessed 10/15/23 10/15/23 12:12 Advance Care Planning discussion: Completed/Scanned Date of discussion: 03/10/23 Who was present: Patient and caregiver Forms completed: MOLST Time spent: 16-45 minutes Actual minutes spent: 16 Const Other: Alert oriented x3, no acute distress noted ambulatory with assistance Orientation/consciousness: patient oriented x3 HENMT Head: Yes normocephalic Ears: external ears normal, TM's normal bilaterally and EAC's normal General nose exam: Normal external nose present and Normal nares present Face and sinus: Yes face symmetric Mouth: Normal oral and palatal mucosa present and moist mucous membranes Eyes General: appearance normal, both eyes and all related structures Neck Neck: Yes full ROM, Yes no lymphadenopathy and Yes supple Chest Chest palpation & inspection: normal inspection of the chest Resp Auscultation: clear to auscultation bilaterally Cardio Rate: regular rate Rhythm: regular rhythm Heart sounds: S1 normal heart sound present and S2 normal heart sound present GI Palpation (GI): Soft to palpation, nontender, no guarding and no masses Auscultation: normal bowel sounds General: Yes no CVA tenderness Back/Spine/Pelvis Back: no CVA tenderness and No back tenderness Skin General skin exam: no rashes or lesions noted Neuro General: patient oriented x3, moves all extremities, Normal light touch and pain sensation, no focal motor deficits and CN's II-XI intact bilaterally Gait exam (Neuro): Ataxic gait present and Assisted gait required Extrem General: Yes full ROM, Yes no joint enlargement, Yes no clubbing, cyanosis or edema and Yes no calf tenderness Psych Appearance: grossly normal and well kempt Mental Status: mental status grossly normal Affect: Animated affect present Attitude: cooperative Results Reviewed Results Reviewed: Laboratory Tests 09/25/23 12:00 Estimat Average Glucose 123 Hemoglobin A1c % 5.9 Name: Omero Silva Age/Sex: 52/M : 1970 Unit#: [id number] Attend Dr: Nicole Anguiano MD Re09/25/23 Status: DEP [facility] Dis[facility]: SPEC : [id number] SANTOS: 09/25/23 STATUS: COMP REQ : [id number] RECD: 09/25/23-[address]: Nicole Anguiano MD COMP: 09/25/23-1333 ENTERED: 09/25/23-[address]: ORDERED: Met Prof Fast, AST, ALT, Lipid Panel, Free T4, TSH Test Result Flag Reference Sodium 141 135-145 mmol/L Potassium 4.8 3.3-5.1 mmol/L CL 107 96-108 mmol/L CO2 29 22-29 mmol/L Gap 10 L 12-20 BUN 16 9-16 mg/dL Creat 1.32 0.5-1.4 mg/dL EGFR 57 NOTE: For -[place] individuals, multiply the result by 1.210. Chronic Kidney Disease: Estimated GFR < 60 mL/min/1.73m2 Severe Kidney Disease: Estimated GFR < 15 mL/min/1.73m2 FBS 127 H 60-99 mg/dL A fasting glucose of 126 mg/dl or greater on more than one occasion is considered diagnostic of diabetes. CA 9.3 8.4-10.2 mg/dL AST (GOT) 18 5-37 U/L ALT (GPT) 16 0-40 U/L Triglyceride 222 H <150 mg/dL Desirable Triglyceride: less than 150 mg/dL Borderline High Triglyceride 150-199 mg/dL High Triglyceride: 200-499 mg/dL Very High Triglyceride: greater than or equal to 5OO mg/dL Cholesterol 128 <200 mg/dL Desirable Cholesterol: less than 200 mg/dL Borderline High Cholesterol: 200-239 mg/dL High Cholesterol: greater than 239 mg/dL LDL Calculated 53 <100 mg/dL Desirable LDL: less than 100 mg/dL Near Optimal/Above Optimal LDL: 110-129 mg/dL Borderline High LDL: 130-159 mg/dL High LDL: 160-189 mg/dL Very High LDL: greater than or equal to 190 mg/dL HDL 31 L >40 mg/dL Desirable HDL: greater than 40 mg/dL Note: This HDL assay may give artificially low results in patients with liver disease. Free T4 0.89 0.71-1.85 ng/dL TSH 3rd Gen. 1.27 0.32-4.0 uIU/mL TSH 3rd Generation ([facility]) PEC : [id number] SANTOS: 09/25/23 STATUS: COMP REQ : [id number] RECD: 09/28/23-[address]: Nicole Anguiano MD COMP: 09/28/23 ENTERED: 09/28/23-120 [facility] DR: ORDERED: ELOISE Test Result Flag Reference Creat, Ur 150.01 mg/dL Microalbumin Ur 43.0 mg/L Alb/Creat Ratio 28.6 <30 ug/mg cr Albumin/Creatinine Ratio Reference Ranges: Assessment and Plan Assessment & Plan (1) Annual visit for general adult medical examination with abnormal findings: Code(s): Z00.01 - Encounter for general adult medical examination with abnormal findings Plan: Recent fasting labs reviewed with patient and caregiver. Recommended dental visit every 6 months and up-to-date with his yearly diabetes retinopathy screening, goes to [facility]. Up-to-date with his vaccinations. Up-to-date with his screening colonoscopy, due again in 2025. Followed by urology for his prostate screening (2) CKD (chronic kidney disease) stage 1, GFR 90 ml/min or greater: Code(s): N18.1 - Chronic kidney disease, stage 1 Plan: Followed by Dr. Rapp, avoidance of NSAIDs (3) AIDS dementia: Comment: Followed at [facility], by Dr. Willy Membreno Code(s): B20 - Human immunodeficiency virus [HIV] disease; F02.80 - Dementia in other diseases classified elsewhere, unspecified severity, without behavioral disturbance, psychotic disturbance, mood disturbance, and anxiety Plan: Followed by infectious disease specialist at [facility], currently on tenofovir epxopjrwzqo-ekyhlwseayveu-kqxawaenntn, and ordered for patient to get the Twinrix hepatitis AB/B vaccine and acquired rubeola meningococcal vaccine, has appointment for him to be followed in December 2023 (4) Acquired hypothyroidism: Code(s): E03.9 - Hypothyroidism, unspecified Plan: Thyroid levels are within normal limits, continue with current dose of levothyroxine 75 mcg taken once a day in a.m.. (5) History of adenomatous polyp of colon: Code(s): Z86.010 - Personal history of colonic polyps Plan: Due for repeat colonoscopy in [address] Aiken (6) Benign prostatic hyperplasia with lower urinary tract symptoms: Comment: Followed by Dr. Sandoval Code(s): N40.1 - Benign prostatic hyperplasia with lower urinary tract symptoms Plan: Followed by Dr. Sandoval, currently on terazosin 5 mg at bedtime (7) Dyslipidemia: Code(s): E78.5 - Hyperlipidemia, unspecified Plan: Reviewed recent fasting lipid profile with patient with levels within normal limits . Continue with atorvastatin 20 mg daily , in addition to adherence to low-cholesterol diet and regular exercise, at least 30 minutes 3 to 4 times a week. Advised patient to make healthy food choices, eat more fruits, vegetables, whole grains, wild caught fish and low-fat dairy. Limit amount of meat and fried or fatty food products, as well as processed foods and fast foods. Follow-up scheduled with repeat fasting lipid panel in 6 months. (8) Acquired deformity of toenail: Code(s): L60.8 - Other nail disorders Plan: Followed by Dr. Isaac for his regular diabetes foot exam (9) Controlled diabetes mellitus type II without complication: Code(s): E11.9 - Type 2 diabetes mellitus without complications Qualifiers: Diabetes mellitus long-term insulin use: with long-term use Qualified Code(s): E11.9 - Type 2 diabetes mellitus without complications; Z79.4 - rodent exterminator (current) use of insulin Plan: Diabetes mellitus stable and controlled with metformin Latest hemoglobin A1c is at 5.9%. Up-to-date with his diabetes retinopathy screening, goes to [facility] and sees Dr. Isaac for his routine foot exam (10) Depression: Code(s): F32.9 - Major depressive disorder, single episode, unspecified Qualifiers: Depression Type: unspecified Qualified Code(s): F32.A - Depression, unspecified Plan: Followed by Dr. Isidro, currently on sertraline (11) ADHD (attention deficit hyperactivity disorder): Code(s): F90.9 - Attention-deficit hyperactivity disorder, unspecified type Qualifiers: Attention deficit-hyperactivity disorder type: unspecified Qualified Code(s): F90.9 - Attention-deficit hyperactivity disorder, unspecified type Plan: Followed by Bryon Isidro Orders: Orders Alanine Aminotransferase 02/28/24 E03.9 - Hypothyroidism, unspecified, E11.9 - Type 2 diabetes mellitus without complications, E78.5 - Hyperlipidemia, unspecified, L60.8 - Other nail disorders, Z79.4 - rodent exterminator (current) use of insulin Aspartate Amino Transferase 02/28/24 E03.9 - Hypothyroidism, unspecified, E11.9 - Type 2 diabetes mellitus without complications, E78.5 - Hyperlipidemia, unspecified, L60.8 - Other nail disorders, Z79.4 - group home (current) use of insulin Free T4 (Free Thyroxine) 02/28/24 E03.9 - Hypothyroidism, unspecified, E11.9 - Type 2 diabetes mellitus without complications, E78.5 - Hyperlipidemia, unspecified, L60.8 - Other nail disorders, Z79.4 - group home (current) use of insulin Hemoglobin A1c 02/28/24 E03.9 - Hypothyroidism, unspecified, E11.9 - Type 2 diabetes mellitus without complications, E78.5 - Hyperlipidemia, unspecified, L60.8 - Other nail disorders, Z79.4 - group home (current) use of insulin Lipid Panel 02/28/24 E03.9 - Hypothyroidism, unspecified, E11.9 - Type 2 diabetes mellitus without complications, E78.5 - Hyperlipidemia, unspecified, L60.8 - Other nail disorders, Z79.4 - group home (current) use of insulin Thyroid Stimulating Hormone 02/28/24 E03.9 - Hypothyroidism, unspecified, E11.9 - Type 2 diabetes mellitus without complications, E78.5 - Hyperlipidemia, unspecified, L60.8 - Other nail disorders, Z79.4 - rodent exterminator (current) use of insulin Coding Level of Care Code Est [facility] Care [id number]([id number]) Diagnoses Annual visit for general adult medical examination with abnormal findings Z00.01 CKD (chronic kidney disease) stage 1, GFR 90 ml/min or greater N18.1 AIDS dementia B20; F02.80 Acquired hypothyroidism E03.9 History of adenomatous polyp of colon Z86.010 Benign prostatic hyperplasia with lower urinary tract symptoms N40.1 Dyslipidemia E78.5 Acquired deformity of toenail L60.8 Controlled type 2 diabetes mellitus without complication, with long-term current use of insulin E11.9; Z79.4 Diabetes mellitus long term care social worker insulin use: with long term care social worker use Depression, unspecified depression type F32.A Depression Type: unspecified Attention deficit hyperactivity disorder (ADHD), unspecified ADHD type F90.9 Attention deficit-hyperactivity disorder type: unspecified Additional Codes Vital Signs *Quality* - Advance Care Planning discussion: Completed/Scanned ([id number]) Vital Signs *Quality* - Time spent: 16-45 minutes ([id number])
== END 2023-10-15 12:23 | disposition home or self-care (01) ==
PROVIDERS: PCP Internal Medicine; Visit Provider Internal Medicine
DX: Z00.00 Encounter for general adult medical examination without abnormal findings (principal)
CPT/HCPCS: 1123F; 99396; 99497

== ENCOUNTER 2024-01-26 13:31 | Outpatient (AMB) | payer MEDICARE, MEDICAID, SELFPAY ==
--- NOTE | 2024-01-26 09:19 | MHC.OFFVIS ---
Intake Visit Reasons: 6m follow up Intake Note: Patient is Present for 6M Follow Up Urology Medication: Bethanechol, Terazosin Antibiotic Allergies: Clindamycin, Sulfa Blood Thinners: Aspirin Still Operator Gin Required: No Allergies clindamycin [CLINDAMYCIN] Allergy (Unknown, Verified 01/26/24 09:20) UNKNOWN Sulfa (Sulfonamide Antibiotics) [SULFA (SULFONAMIDE ANTIBIOTICS)] Allergy (Unknown, Verified 01/26/24 09:20) UNKNOWN tuberculin, purified protein deriva [TB TEST] Allergy (Unknown, Verified 01/26/24 09:20) UNKNOWN [facility] Medical History (Updated 10/15/23 @ 13:50 by Nicole Anguiano MD) History of adenomatous polyp of colon AIDS dementia CKD (chronic kidney disease) stage 1, GFR 90 ml/min or greater Anemia Diverticulosis Acquired hypothyroidism Lives in shelter COVID-19 vaccine series completed Testicular hypofunction Depression ADHD (attention deficit hyperactivity disorder) Benign prostatic hyperplasia with lower urinary tract symptoms Dyslipidemia Acquired deformity of toenail Controlled diabetes mellitus type II without complication Nephrolithiasis Surgical History No pertinent past surgical history Family History Father Unknown family medical history Mother Unknown family medical history Brother No problems noted. Sister No problems noted. Daughter No problems noted. Social History Housing: Other Housing Other:: [facility] Alcohol intake: never Patient Tobacco Use Status: Never used Tobacco e-Cigarette/Vaping Use: Never Used service: No Current occupational status: disabled Current occupational exposures/hazards: No Cognitive needs: No Hearing needs: No Vision needs: Yes Coding
--- NOTE | 2024-01-26 13:28 | A.OFFVIS_ITS ---
Intake Visit Reasons: 6m follow up Intake Note: Patient is Present for 6m Follow Up Urology Medication:bethanechol, Terazosin Antibiotic Allergies: Clindamycin, Sulfa Blood Thinners: Aspirin It Web Development Consultant Required: No Allergies clindamycin [CLINDAMYCIN] Allergy (Unknown, Verified 01/26/24 13:30) UNKNOWN Sulfa (Sulfonamide Antibiotics) [SULFA (SULFONAMIDE ANTIBIOTICS)] Allergy (Unknown, Verified 01/26/24 13:30) UNKNOWN tuberculin, purified protein deriva [TB TEST] Allergy (Unknown, Verified 01/26/24 13:30) UNKNOWN Medication List - Last Reconciled 01/26/24 by Fox Sandoval MD acetaminophen (Tylenol) 650 mg (2 x 325 mg) PO Q6H PRN atorvastatin (Lipitor) 20 mg PO BEDTIME bethanechol chloride 25 mg PO BID bethanechol chloride 25 mg PO BID 90 days jkyatwgfv-ktalzgfn-yzektaa ala 50-200-25 mg 1 tab PO DAILY blood sugar diagnostic (Contour Next Test Strips) Check fasting blood sugar once a day every morning; calcium carbonate (Campos-Gest Antacid) 200 mg PO BID divalproex ER 1,000 mg PO BEDTIME docusate sodium (Stool Softener) 100 mg PO BID guaifenesin (Cough Syrup) 200 mg (10 mL) PO Q4H PRN levothyroxine 75 mcg PO QAM metformin 500 mg PO DAILY methylcellulose (laxative) (Citrucel) 500 mg PO DAILY esqhhfnx-kaq-zwhkslv sulfate 4.5 mg iron (One Daily Multivitamins with Minerals) 1 tab PO DAILY sertraline 75mg terazosin 5 mg PO BEDTIME 90 days HPI Comments Details: Orlando is a pleasant male. He is a resident of a [facility] facility. He is a patient of Dr. Anguiano. 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 b.i.d. PSA 09/18 0.4 limited fluids after 20:00, sit to void Renal cyst Renal cyst 1 cm right upper pole Imaging - 01/17 CT scan 1 cm right upper cyst pole, no stones Lower Urinary Tract Symptoms: stable imaging. Current visit is for further evaluation of, lower urinary tract symptoms, predominate obstructive symptoms. Current treatment includes medication, alpha samuel, 5-AR. Prostate Symptom Score Moderate (9-19), Bother 3 05/17 , Mild (0-8), Bother 2. Symptoms include incomplete emptying, weak stream, nocturia (>2), and are progressing. Results from testing include cystoscopy no abnormality seen 05/17 Prostate volume < 30 gm. imaging - 12/17 renal ultrasound 9 mm cyst on right, 3 mm stone on left Associated conditions - HIV, diabetes, prior head injury Testing at next visit will include bladder scan [facility] Medical History (Updated 10/15/23 @ 13:50 by Nicole Anguiano MD) History of adenomatous polyp of colon AIDS dementia CKD (chronic kidney disease) stage 1, GFR 90 ml/min or greater Anemia Diverticulosis Acquired hypothyroidism Lives in long term COVID-19 vaccine series completed Testicular hypofunction Depression ADHD (attention deficit hyperactivity disorder) Benign prostatic hyperplasia with lower urinary tract symptoms Dyslipidemia Acquired deformity of toenail Controlled diabetes mellitus type II without complication Nephrolithiasis Surgical History No pertinent past surgical history Family History Father Unknown family medical history Mother Unknown family medical history Brother No problems noted. Sister No problems noted. Daughter No problems noted. Social History Housing: Other Housing Other:: [facility] Alcohol intake: never Patient Tobacco Use Status: Never used Tobacco e-Cigarette/Vaping Use: Never Used service: No Current occupational status: disabled Current occupational exposures/hazards: No Cognitive needs: No Hearing needs: No Vision needs: Yes Review of Systems Const All systems reviewed & are unremarkable except as noted in HPI and below Reports no additional complaints Resp Reports no additional complaints GI Reports no additional complaints Reports as per HPI Musc Reports no additional complaints Physical Exam Telemedicine evaluation Appropriate responses Regular breathing rate and rhythm HEENT Head: Yes normal to inspection Ears: hearing grossly normal bilaterally Eyes General: appearance normal, both eyes and all related structures Neck Neck: Yes normal visual inspection Chest Chest palpation & inspection: normal inspection of the chest Resp Effort & Inspection: normal respiratory effort and able to speak in complete sentences Telehealth Telehealth Telehealth Platform: [employer] Location of provider rendering services: practice address Location of patient: address on file Patient Identification confirmed using: Name, : Yes Telehealth method: video Patient verbally consented to treatment: Yes Patient verbally consented to billing insurance company: Yes Patient informed of any privacy concerns related to visit: Yes Minutes spent on Phone/Video with Pt.: 15 Assessment & Plan Assessment & Plan (1) Benign prostatic hyperplasia with lower urinary tract symptoms: Comment: Followed by Dr. Sandoval Code(s): N40.1 - Benign prostatic hyperplasia with lower urinary tract symptoms Category: Medical (2) Nephrolithiasis: Comment: Followed by Dr. Sandoval Code(s): N20.0 - Calculus of kidney Category: Medical Plan Six month follow-up of his Orders: Orders Prostate Specific Antigen 6 Months N40.1 - Benign prostatic hyperplasia with lower urinary tract symptoms Medications: Refilled terazosin 5 mg PO BEDTIME 90 days 90 caps 1RF bethanechol chloride 25 mg PO BID 90 days 180 tabs 1RF N39.0 - Urinary tract infection, site not specified, N40.1 - Benign prostatic hyperplasia with lower urinary tract symptoms Patient Instructions: Imaging studies, laboratory and physical exam results were discussed and reviewed in detail. No major barriers to patient understanding were identified. An opportunity to ask questions regarding the treatment plan was provided. All questions were answered. The patient expressed understanding and agreement with the above treatment plan. The patient is aware they should contact our office by phone for worsening of their current condition or the appearance of new urologic symptoms. Compliance is encouraged with any medications and followup testing that is ordered. It is a privilege to participate in the urologic care of your patient. If you have any questions or concerns regarding treatment for the above conditions, or other urologic issues, please do not hesitate to contact me. The office telephone contact is [phone]. This note is constructed using voice recognition software. While every effort has been made to ensure accuracy night monitor errors may have been included. Yours sincerely, Dr Fox Sandoval MD, [facility] - Urology Providers of Expert, Compassionate Care for the Genitourinary System Coding Level of Care Code Tele Est Pt Level 3 (83364) Diagnoses Benign prostatic hyperplasia with lower urinary tract symptoms N40.1 Nephrolithiasis N20.0
== END 2024-01-26 14:20 | disposition home or self-care (01) ==
LOC: HO.HUSH 13:31
PROVIDERS: PCP Internal Medicine; Visit Provider Urology
DX: N40.1 Benign prostatic hyperplasia with lower urinary tract symptoms (principal); N20.0 Calculus of kidney
CPT/HCPCS: 99213

== ENCOUNTER → 2024-01-26 13:31 | Outpatient (BNVA) | payer MEDICARE, MEDICAID, SELFPAY | PROVIDERS: PCP Internal Medicine; Visit Provider Urology ==

== ENCOUNTER 2024-03-13 15:57 | Emergency (ER) | payer MEDICARE, MEDICAID, SELFPAY ==
--- NOTE | ~2024-03-13 | XR_ITS ---
EXAMINATION: XR LUMBOSACRAL SPINE CLINICAL INFORMATION: back pain COMPARISON: Lumbar spine radiographs 08/02/2022 TECHNIQUE: 3 views of the lumbar spine FINDINGS: 5 nonrib-bearing lumbar-type vertebral bodies. Vertebral body heights are maintained. Grade 1 retrolisthesis of L5 on S1. Moderate degenerative disc disease at L5-S1 with loss of disc space height and facet arthropathy similar to prior. Paravertebral soft tissues are unremarkable. XR/XR lumbar spine 2-3V IMPRESSION: 1. Moderate degenerative disc disease at L5-S1 with loss of disc space height and facet arthropathy similar to prior. 2. Grade 1 retrolisthesis of L5 on S1. Electronically signed by: Stephania Gillette MD 03/13/2024 07:12 PM EDT
[2024-03-13 16:34] VITALS: BP 110/66; BP 94/55; PULSE 90; RESP 18; TEMP 36.4; O2SAT 95; O2SAT 97; BMI 24.9
--- NOTE | 2024-03-13 17:34 | ED_ITS ---
HPI - General Adult General Chief complaint: Fall Stated complaint: back pain Time Seen by Provider: 03/13/24 16:40 Source: patient Mode of arrival: ambulatory Limitations: no limitations History of Present Illness ED Provider: Farhan Hi PA-C HPI narrative: 53-year-old male history of dementia chronic kidney disease ADHD, BPH, presents to ED for back pain. Patient is wheelchair-bound. Patient was moving from the bed to his wheelchair and he slipped and fell onto his back. Patient denies hitting head or loss of consciousness. Patient denies any other complaints. Related Data Home Medications ?Medication ?Instructions ?Recorded ?Confirmed bictegravir 50 mg-emtricitabine 1 tab PO DAILY 08/31/20 01/26/24 200 mg-tenofovir alafenam 25 mg tablet divalproex 500 mg tablet,extended 1,000 mg PO BEDTIME 08/31/20 01/26/24 release 24 hr sertraline 25 mg tablet mg PO 06/05/21 01/26/24 bethanechol chloride 25 mg tablet 25 mg PO BID 10/15/23 01/26/24 Previous Rx's ?Medication ?Instructions ?Recorded blood sugar diagnostic (Contour See Rx Instructions .Route QAM for 04/17/21 Next Test Strips) diabetes mellitus #50 strips acetaminophen 325 mg capsule 650 mg (2 x 325 mg) PO Q6H PRN 07/28/23 (Tylenol) fever or pain #20 caps guaifenesin 100 mg/5 mL oral 200 mg (10 mL) PO Q4H PRN cough 07/28/23 liquid (Cough Syrup) #500 mL atorvastatin 20 mg tablet (Lipitor) 20 mg PO BEDTIME #90 tabs 01/08/24 calcium carbonate (Campos-Gest 200 mg PO BID #180 ea 01/08/24 Antacid) docusate sodium 100 mg capsule 100 mg PO BID #180 caps 01/08/24 (Stool Softener) metformin 500 mg tablet 500 mg PO DAILY #90 tabs 01/08/24 methylcellulose (laxative) 500 mg 500 mg PO DAILY #90 tabs 01/08/24 tablet (Citrucel) bethanechol chloride 25 mg tablet 25 mg PO BID 90 days #180 tabs 01/26/24 terazosin 5 mg capsule 5 mg PO BEDTIME 90 days #90 caps 01/26/24 levothyroxine 75 mcg tablet 75 mcg PO QAM #90 tabs 01/28/24 gmvkvceavpjp-uvzdfvrt-wvdo 1 tab PO QAM #30 tabs 02/11/24 fumarate 19 mg-folic acid 400 mcg tablet (Thera-M) naproxen 500 mg tablet 500 mg PO BID PRN pain 7 days #14 03/13/24 tabs Allergies Allergy/AdvReac Type Severity Reaction Status Date / Time clindamycin [CLINDAMYCIN] Allergy Unknown UNKNOWN Verified 03/13/24 16:36 Sulfa (Sulfonamide Allergy Unknown UNKNOWN Verified 03/13/24 16:36 Antibiotics) [SULFA (SULFONAMIDE ANTIBIOTICS)] tuberculin, purified protein Allergy Unknown UNKNOWN Verified 03/13/24 16:36 deriva [TB TEST] Review of Systems Review of Systems: Low back pain Yes all other systems are reviewed and are negative [facility] Past Medical History Medical History (Updated 03/13/24 @ 19:17 by VINITA Bañuelos) History of adenomatous polyp of colon AIDS dementia CKD (chronic kidney disease) stage 1, GFR 90 ml/min or greater Anemia Diverticulosis Acquired hypothyroidism [facility] COVID-19 vaccine series completed Testicular hypofunction Depression ADHD (attention deficit hyperactivity disorder) Benign prostatic hyperplasia with lower urinary tract symptoms Dyslipidemia Acquired deformity of toenail Controlled diabetes mellitus type II without complication Nephrolithiasis Surgical History No pertinent past surgical history Family History Family History Father Unknown family medical history Mother Unknown family medical history Brother No problems noted. Sister No problems noted. Daughter No problems noted. Social History Social History Housing: Other Housing Other:: correction Alcohol intake: never Patient Tobacco Use Status: Never used Tobacco e-Cigarette/Vaping Use: Never Used Advance Directives: Yes Advance Directives on File: Yes Advance Directives Date on File: 09/08/22 Do you have a plan to hurt others: No Plan service: No Current occupational status: disabled Current occupational exposures/hazards: No Cognitive needs: No Hearing needs: No Vision needs: Yes Physical Exam ED Vital Signs: Vital Signs - 24 hr 03/13/24 16:34 03/13/24 21:00 Temperature 97.6 F 97 F Pulse Rate 90 80 Respiratory Rate 18 20 Blood Pressure 94/55 L 109/50 L Pulse Oximetry 97 97 Oxygen Delivery Method Room Air Room Air BMI result Body Mass Index 24.9 Const General: cooperative, healthy appearing, comfortable, no acute distress, well developed, alert, awake and Physically active Orientation/consciousness: patient oriented x3 HENND Head: Yes normal to inspection, Yes No palpable skull fracture present, Yes normocephalic and Yes atraumatic Eyes General: appearance normal, both eyes and all related structures Neck Neck: Yes normal visual inspection, Yes full ROM, Yes no lymphadenopathy, Yes no meningeal signs, Yes trachea midline, Yes supple, No anterior neck swelling and No tender Chest Chest palpation & inspection: normal inspection of the chest and normal palpation of entire chest wall Resp Effort & Inspection: normal respiratory effort and able to speak in complete sentences Auscultation: clear to auscultation bilaterally Cardio Jugular venous distension: no JVD Heart sounds: S1 normal heart sound present and S2 normal heart sound present GI Inspection: Yes normal to inspection Palpation (GI): Soft to palpation, not firm, nontender, no guarding and not rigid General: No CVA tenderness and Yes no CVA tenderness Back/Spine/Pelvis Back: no CVA tenderness, No CVA tenderness and back tenderness (lumbar) Skin General skin exam: no rashes or lesions noted, elasticity normal and turgor normal Neuro General: patient oriented x3, gait normal, tone normal, moves all extremities, no meningeal signs, no focal motor deficits, CN's II-XI intact bilaterally and normal sensation to monofilament Extrem General: Yes normal to inspection, Yes full ROM and Yes capillary refill normal Psych Appearance: grossly normal, well kempt and not disheveled Medications Administered Discontinued Medications Generic Name Dose Route Start Last Admin Trade Name Freq PRN Reason Stop Dose Admin Ibuprofen 800 mg 03/13/24 19:08 03/13/24 20:20 Ibuprofen 800 Mg Tablet PO 03/13/24 19:09 800 mg ONCE ONE Administration Medical Decision Making Medical Decision Making [facility] Narrative: 53-year-old male wheelchair-bound presents to ED for back pain after hitting back on the ground while trying to move from bed to chair. Patient will be sent for x-ray. Patient well-appearing. Not suspecting epidural abscess or cauda equinus syndrome. Not suspecting brain bleed or cervical spine fracture. Differential Diagnosis Differential Diagnoses: The differential diagnosis associated with the presentation includes (Spinal fracture, lumbar radiculopathy) Admission/Observation Consideration of admission/observation: Escalation of care including admission/observation considered Independent Historian Clinical information obtained from an independent historian. History obtained from or confirmed by: Other (Patient) External Record Review External record reviewed: Other (Prior visits) Prescription Management I considered prescription management with: Pain Medication Discharge Plan Discharge Clinical Impression: Back pain, Lumbar radiculopathy Patient Disposition: Home, Self-Care Instructions: Lumbar Radiculopathy (ED), Back Pain (ED) Additional Instructions: Return to the ED immediately for any urinary/bowel incontinence, severe back pain, abdominal pain, flank pain, nausea, vomiting, fever, chills, or any other concerning symptoms. Prescriptions: New naproxen 500 mg tablet 500 mg PO BID PRN (Reason: pain) 7 Days Qty: 14 0RF No Action Contour Next Test Strips Strip See Rx Instructions .ROUTE QAM Qty: 50 6RF Rx Instructions: Check fasting blood sugar once a day every morning; acetaminophen [Tylenol] 325 mg capsule 650 mg PO Q6H PRN (Reason: fever or pain) Qty: 20 0RF guaifenesin [Cough Syrup] 100 mg/5 mL liquid 200 mg PO Q4H PRN (Reason: cough) Qty: 500 0RF metformin 500 mg tablet 500 mg PO DAILY Qty: 90 1RF calcium carbonate [Campos-Gest Antacid] 200 mg calcium (500 mg) tablet,chewable 200 mg PO BID Qty: 180 1RF Citrucel 500 mg tablet 500 mg PO DAILY Qty: 90 1RF Rx Instructions: take it with full glass of water atorvastatin [Lipitor] 20 mg tablet 20 mg PO BEDTIME Qty: 90 1RF docusate sodium [Stool Softener] 100 mg capsule 100 mg PO BID Qty: 180 1RF levothyroxine 75 mcg tablet 75 mcg PO QAM Qty: 90 5RF Thera-M 19 mg iron- 400 mcg tablet 1 tab PO QAM Qty: 30 5RF divalproex 500 mg tablet extended release 24 hr 1,000 mg PO BEDTIME clahbhfza-egjbqqtg-zyvkwrz ala 50-200-25 mg tablet 1 tab PO DAILY sertraline 25 mg tablet PO Patient Comments: 75 mg Rx Instructions: 75mg bethanechol chloride 25 mg tablet 25 mg PO BID terazosin 5 mg capsule 5 mg PO BEDTIME 90 Days Qty: 90 1RF bethanechol chloride 25 mg tablet 25 mg PO BID 90 Days Qty: 180 1RF Interventions: ED Discharge Assessment Last Done: 03/13/24 21:00 Discharge Date/Time: 03/13/24 21:02 Print Language: [place]
[2024-03-13] MEDS: Ibuprofen 800 MG TABLET PO (20:20)
[2024-03-13 21:00] VITALS: BP 109/50; PULSE 80; RESP 20; TEMP 36.1; O2SAT 97
== END 2024-03-13 21:02 | disposition home or self-care (01) ==
PROVIDERS: Emergency Provider Emergency Medicine Emergency Medical Services
DX: M54.16 Radiculopathy, lumbar region (principal)
CPT/HCPCS: 72100; 99283

== ENCOUNTER 2024-04-05 14:59 | Outpatient (REF) | payer MEDICARE, MEDICAID, SELFPAY ==
[2024-04-05 17:23] LABS: Valproate 67.4 mcg/mL (50.0-100.0)
[2024-04-05 17:35] LABS: Alanine Aminotransferase 16 U/L (0-40); Alkaline Phosphatase 70 U/L (39-117); Aspartate Amino Transferase 19 U/L (5-37); Bilirubin Direct 0.1 mg/dL (0.0-0.5); Bilirubin Total 0.3 mg/dL (0.0-1.0); Total Protein 7.3 g/dL (6.5-8.0)
== END 2024-04-05 15:00 | disposition home or self-care (01) ==
LOC: HO.LAB 14:59
PROVIDERS: PCP Internal Medicine; Visit Provider General Practice
DX: F33.1 Major depressive disorder, recurrent, moderate (principal); Z79.899 Other long term (current) drug therapy
CPT/HCPCS: 36415; 80076; 80164

== ENCOUNTER 2024-04-18 10:46 | Outpatient (AMB) | payer MEDICARE, MEDICAID, SELFPAY ==
[2024-04-18 10:51] VITALS: BP 90/52; PULSE 104; O2SAT 95; BMI 22.3
--- NOTE | 2024-04-18 10:51 | MHC.PC.OV ---
Vital Signs 04/18/24 10:51 Height 5 ft 4 in Weight 130 lb BMI 22.3 BP 90/52 L Blood Pressure Location Rt brachial Position Sitting Pulse 104 H Pulse Source Pulse Oximeter Pulse Oximetry (%) 95 Oxygen Delivery Method Room Air Intake Visit Reasons: 6 month follow up Intake Note: Pt is here today for his 6mo. f/u Allergies clindamycin [CLINDAMYCIN] Allergy (Unknown, Verified 04/18/24 11:19) UNKNOWN Sulfa (Sulfonamide Antibiotics) [SULFA (SULFONAMIDE ANTIBIOTICS)] Allergy (Unknown, Verified 04/18/24 11:19) UNKNOWN tuberculin, purified protein deriva [TB TEST] Allergy (Unknown, Verified 04/18/24 11:19) UNKNOWN Medication List - Last Reconciled 04/18/24 by Nicole Anguiano MD acetaminophen (Tylenol) 650 mg (2 x 325 mg) PO Q6H PRN atorvastatin (Lipitor) 20 mg PO BEDTIME bethanechol chloride 25 mg PO BID 90 days lyhpdevnc-nogkmsiv-gasuzlt ala 50-200-25 mg 1 tab PO DAILY blood sugar diagnostic (Contour Next Test Strips) Check fasting blood sugar once a day every morning; divalproex ER 1,000 mg PO BEDTIME levothyroxine 75 mcg PO QAM metformin 500 mg PO DAILY methylcellulose (laxative) (Citrucel) 500 mg PO DAILY ioeopsey-yim-tejx fum-folic ac 19 mg iron- 400 mcg (Thera-M) 1 tab PO QAM sertraline 75mg terazosin 5 mg PO BEDTIME 90 days Tobacco use date assessed: 04/18/24 Dental Screening Dental Screen Date: 04/18/24 Did you have a dental visit in the last 12 months?: No Did you have a dental problem in the last 6 months where you did not have access to dental care?: No Was dental information given to patient?: Patient declined HPI 6 month follow up HPI Details 53 -year-old male with past medical history significant for AIDS dementia, lipodystrophy, hyperlipidemia, ADHD, mild CKD and benign prostatic hyperplasia with lower urinary tract symptoms and history of nephrolithiasis, diabetes mellitus controlled with metformin, here today for his follow-up. Has been feeling well, accompanied by caregiver, no specific complaints at present time. [facility] Medical History History of adenomatous polyp of colon AIDS dementia CKD (chronic kidney disease) stage 1, GFR 90 ml/min or greater Anemia Diverticulosis Acquired hypothyroidism Lives in skilled nursing COVID-19 vaccine series completed Testicular hypofunction Depression ADHD (attention deficit hyperactivity disorder) Benign prostatic hyperplasia with lower urinary tract symptoms Dyslipidemia Acquired deformity of toenail Controlled diabetes mellitus type II without complication Nephrolithiasis Surgical History No pertinent past surgical history Family History Father Unknown family medical history Mother Unknown family medical history Brother No problems noted. Sister No problems noted. Daughter No problems noted. Social History Housing: Other Housing Other:: halfway Alcohol intake: never Patient Tobacco Use Status: Never used Tobacco e-Cigarette/Vaping Use: Never Used Advance Directives Date on File: 09/08/22 service: No Current occupational status: disabled Current occupational exposures/hazards: No Cognitive needs: No Hearing needs: No Vision needs: Yes Questionnaire Thrive Questionnaire Date Thrive assessed: 10/15/23 ESHA-7 AMB Questionnaire ESHA-7 Date ESHA - 7 assessed: 10/15/23 Source: Developed by Drs. Paulie Holden, Tonia Lerma, Malvin Bennett and colleagues, with an educational gisela from [employer]. Review of Systems Const All systems reviewed & are unremarkable except as noted in HPI and below Reports no additional complaints and Denies headache(s) Eyes Details: [facility] ophthalmology Denies change in vision ENT Denies dizziness, Denies headache(s), Denies mouth lesions, Denies nasal discharge and Reports disequilibrium Card Denies chest pain, Denies chest pain with activity, Denies syncope, Denies rapid heart rate, Denies irregular heart rhythm, Denies lightheadedness and Denies dyspnea Resp Reports no additional complaints, Denies dyspnea and Denies wheezing GI Reports no additional complaints Reports as per HPI Musc Reports no additional complaints and Reports abnormal gait Skin/Breast Denies lesions and Denies rash Neuro Reports abnormal gait, Denies dizziness, Denies syncope, Denies headache(s) and Reports disequilibrium Psych Reports as per HPI Endo Reports no additional complaints Joe/Lymph Denies easy bruising Aller/Immun Denies seasonal rhinorrhea and Denies wheezing Physical exam (Primary Care) Vital Signs: Last Vital Signs Pulse 104 H 04/18/24 10:51 BP 90/52 L 04/18/24 10:51 Pulse Ox 95 04/18/24 10:51 Oxygen Delivery Method Room Air 04/18/24 10:51 BMI result Body Mass Index 22.3 Tobacco/Smoking Status: Tobacco use Status Tobacco use date assessed 04/18/24 04/18/24 10:52 Patient Tobacco Use Status Never used Tobacco 04/18/24 10:52 e-Cigarette/Vaping Use Never Used 04/18/24 10:52 Thrive Assessment: Date of Thrive Assessment Date Thrive assessed 10/15/23 04/18/24 10:52 Const Other: Alert oriented x3, no acute distress noted ambulatory with assistance Orientation/consciousness: patient oriented x3 HENMT Head: Yes normocephalic Ears: external ears normal General nose exam: Normal external nose present and Normal nares present Face and sinus: Yes face symmetric Mouth: Normal oral and palatal mucosa present and moist mucous membranes Neck Neck: Yes full ROM, Yes no lymphadenopathy and Yes supple Resp Auscultation: clear to auscultation bilaterally Cardio Rate: regular rate Rhythm: regular rhythm Heart sounds: S1 normal heart sound present and S2 normal heart sound present GI Palpation (GI): Soft to palpation, nontender, no guarding and no masses Auscultation: normal bowel sounds General: Yes no CVA tenderness Back/Spine/Pelvis Back: no CVA tenderness and No back tenderness Skin General skin exam: no rashes or lesions noted Neuro General: patient oriented x3, moves all extremities, Normal light touch and pain sensation, no focal motor deficits and CN's II-XI intact bilaterally Gait exam (Neuro): Ataxic gait present and Assisted gait required Extrem General: Yes full ROM, Yes no joint enlargement, Yes no clubbing, cyanosis or edema and Yes no calf tenderness Office Procedures Flu Questionnaire Does the patient have a severe egg allergy?: No Does the patient have severe life threatening allergies?: No Does the patient have a fever or illness today?: No Has the patient ever had Guillain-[place] Syndrome?: No Has the patient ever had any past reaction to a flu shot?: No Results AMB Hemoglobin A1c AMB Hemoglobin A1c 5.6 % Last Edit by Stacie Hare CMA on 04/18/24 11:23 Immunizations Fluarix Triv 7780-8596 (PF) 45 mcg (15 mcg x 3)/0.5 mL IM syringe Performing Provider: Nicole Anguiano MD Performing Location: [facility] Administered by: Stacie Hare CMA on 04/18/24 11:34 Dose Route Admin Location Dispensed Lot Number Expiration Date ND Per Diem Nurse 0.5 mL IM Right Deltoid 0.5 mL [id number] 12/26/24 [id number] VIS Given Date VIS Provided VIS Publication Date 04/18/24 Single Vaccine 21 Eligibility Eligibility Date Funding Source Not [facility] Eligible 04/18/24 Private Results Reviewed Results Reviewed: Laboratory Last Values Hgb A1c (Clinic) 5.6 % (4.0-6.0) 04/18/24 11:12 Name: Omero Silva Age/Sex: 53/M : 1970 Unit#: [id number] Attend Dr: DODIE DOSS MD Re04/05/24 Status: DEP [facility] Disch: SPEC : [id number] SANTOS: 04/05/24 STATUS: COMP REQ : [id number] RECD: 04/05/[address]: DODIE DOSS MD COMP: 04/05/24 ENTERED: 04/05/[address]: ORDERED: Liver Panel Test Result Flag Reference Total Bili 0.3 0.0-1.0 mg/dL Direct Bili 0.1 0.0-0.5 mg/dL AST (GOT) 19 5-37 U/L ALT (GPT) 16 0-40 U/L Protein, Total 7.3 6.5-8.0 g/dL Alb 4.0 3.5-5.0 g/dL Alk Phos 70 39-117 U/L Coding Level of Care Code Est Pt Level 3 (46134) Complex EM visit Add On G2211 Diagnoses Controlled type 2 diabetes mellitus without complication, with long-term current use of insulin E11.9; Z79.4 Diabetes mellitus extermination inspector insulin use: with extermination inspector use Assessment & Plan Assessment & Plan (1) Controlled diabetes mellitus type II without complication: Code(s): E11.9 - Type 2 diabetes mellitus without complications Category: Medical Qualifiers: Diabetes mellitus usp insulin use: with extermination inspector use Qualified Code(s): E11.9 - Type 2 diabetes mellitus without complications; Z79.4 - half-way (current) use of insulin Plan: Hemoglobin A1c today is at 5.6%. Continue with metformin 500 mg 1 tablet once a day, reinforced importance of following recommended diet an get yearly diabetes retinopathy screening and foot exam. Flu vaccine given today. Reminded to get his shingles vaccination and COVID booster Orders: Orders AMB Hemoglobin A1c 04/18/24 E11.9 - Type 2 diabetes mellitus without complications, Z79.4 - superintendent container terminal (current) use of insulin Influenza 3001-6499 Immunization 04/18/24 Z23 - Encounter for immunization
== END 2024-04-18 11:48 | disposition home or self-care (01) ==
PROVIDERS: PCP Internal Medicine; Visit Provider Internal Medicine
DX: E11.9 Type 2 diabetes mellitus without complications (principal); Z79.4 Long term (current) use of insulin

== ENCOUNTER → 2024-04-18 10:46 | Outpatient (BNVA) | payer MEDICARE, MEDICAID, SELFPAY | PROVIDERS: PCP Internal Medicine; Visit Provider Internal Medicine | DX: E11.9 Type 2 diabetes mellitus without complications (principal); Z79.84 Long term (current) use of oral hypoglycemic drugs; Z23 Encounter for immunization | CPT/HCPCS: 83036; 90471; 90656; 99212 ==

== ENCOUNTER 2024-07-27 14:30 | Outpatient (AMB) | payer MEDICARE, MEDICAID, SELFPAY ==
--- NOTE | 2024-07-27 14:38 | A.OFFVIS_ITS ---
Intake Visit Reasons: 6M PVR(Needs PSA) Intake Note: Patient is Present for 6m Follow Up Urology Medication:bethanechol, Terazosin Antibiotic Allergies: Clindamycin, Sulfa Blood Thinners: Aspirin PVR: 57ml's Broach Grinder Required: No Accompanied by: Unknown Allergies clindamycin [CLINDAMYCIN] Allergy (Unknown, Verified 07/27/24 14:50) UNKNOWN Sulfa (Sulfonamide Antibiotics) [SULFA (SULFONAMIDE ANTIBIOTICS)] Allergy (Unknown, Verified 07/27/24 14:50) UNKNOWN tuberculin, purified protein deriva [TB TEST] Allergy (Unknown, Verified 07/27/24 14:50) UNKNOWN HPI Comments Details: Orlando is a pleasant male. He is a resident of a care facility. He is a patient of Dr. Anguiano. 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 Recommend fiber. Prior cystoscopy with open bladder neck On bethanechol 25 mg p.o. b.i.d. PSA 09/18 0.4 limited fluids after 20:00, sit to void Renal cyst Renal cyst 1 cm right upper pole Imaging - 01/17 CT scan 1 cm right upper cyst pole, no stones Lower Urinary Tract Symptoms: stable imaging. Current visit is for further evaluation of, lower urinary tract symptoms, predominate obstructive symptoms. Current treatment includes medication, alpha samuel, 5-AR. Prostate Symptom Score Moderate (9-19), Bother 3 05/17 , Mild (0-8), Bother 2. Symptoms include incomplete emptying, weak stream, nocturia (>2), and are progressing. Results from testing include cystoscopy no abnormality seen 05/17 Prostate volume < 30 gm. imaging - 12/17 renal ultrasound 9 mm cyst on right, 3 mm stone on left Associated conditions - HIV, diabetes, prior head injury Testing at next visit will include bladder scan [facility] Medical History History of adenomatous polyp of colon AIDS dementia CKD (chronic kidney disease) stage 1, GFR 90 ml/min or greater Anemia Diverticulosis Acquired hypothyroidism Lives in nursing home COVID-19 vaccine series completed Testicular hypofunction Depression ADHD (attention deficit hyperactivity disorder) Benign prostatic hyperplasia with lower urinary tract symptoms Dyslipidemia Acquired deformity of toenail Controlled diabetes mellitus type II without complication Nephrolithiasis Surgical History No pertinent past surgical history Family History Father Unknown family medical history Mother Unknown family medical history Brother No problems noted. Sister No problems noted. Daughter No problems noted. Social History Housing: Other Housing Other:: [facility] Alcohol intake: never Patient Tobacco Use Status: Never used Tobacco e-Cigarette/Vaping Use: Never Used Advance Directives Date on File: 09/08/22 service: No Current occupational status: disabled Current occupational exposures/hazards: No Cognitive needs: No Hearing needs: No Vision needs: Yes Review of Systems Const Denies chills and Denies fever(s) Card Reports no additional complaints and Denies syncope Resp Denies cough GI Denies abdominal pain and Denies heartburn Reports as per HPI and Denies change in libido Neuro Denies syncope Psych Denies change in libido Endo Denies change in libido Physical Exam Const General: cooperative, healthy appearing, comfortable and no acute distress Orientation/consciousness: patient oriented x3 HEENT Face and sinus: Yes normal facial exam Mouth: moist mucous membranes Neck Neck: Yes normal visual inspection, Yes full ROM and Yes trachea midline Chest Chest palpation & inspection: normal inspection of the chest Resp Effort & Inspection: normal respiratory effort, able to speak in complete sentences and no respiratory distress GI Inspection: Yes normal to inspection Back/Spine/Pelvis Cervical Spine: normal cervical lordosis Thoracic/Lumbar Spine: thoracic and lumbar spine normal to inspection Skin General skin exam: no rashes or lesions noted Neuro General: patient oriented x3, gait normal, tone normal and moves all extremities Extrem General: Yes normal to inspection and Yes capillary refill normal Office Procedures Post Void Residual Post Residual Void Post Void Residual (PVR): 57 [id number] Void Residual by ultrasound Results AMB Urinalysis, Automated UA Leukoctes 70 Jeremiah/uL Last Edit by Chandu Dean on 07/27/24 14:52 UA Nitrite Last Edit by Chandu Dean on 07/27/24 14:52 UA Urobilinogen 0.2 mg/dL Last Edit by Chandu Dean on 07/27/24 14:52 UA Protein 30 mg/dL Last Edit by Chandu Dean on 07/27/24 14:52 UA pH 6.0 Last Edit by [employer]ybil Dean on 07/27/24 14:52 UA Blood 0 Derrick/uL Last Edit by Chandu Dean on 07/27/24 14:52 UA Specific [place] 1.020 Last Edit by Chandu Dean on 07/27/24 14:52 UA Ketone Last Edit by Chandu Dean on 07/27/24 14:52 UA Bilirubin 1 mg/dL Last Edit by [employer] Med[employer]ybil Dean on 07/27/24 14:52 UA Glucose 0 mg/dL Last Edit by [employer] Med[employer]ybil Dean on 07/27/24 14:52 Results Reviewed Results Reviewed: Laboratory Last Values Urine pH (Auto) 6.0 07/27/24 14:51 Specific [place] (Auto) 1.020 07/27/24 14:51 Urine Protein (Auto) 30 mg/dL 07/27/24 14:51 Glucose (UA)(Auto) 0 mg/dL 07/27/24 14:51 Urine Blood (Auto) 0 Derrick/uL 07/27/24 14:51 Urine Bilirubin (Auto) 1 mg/dL 07/27/24 14:51 Urine Urobilinogen (Auto) 0.2 mg/dL 07/27/24 14:51 Leukocyte Esterase (Auto) 70 Jeremiah/uL 07/27/24 14:51 Assessment & Plan Assessment & Plan (1) Benign prostatic hyperplasia with lower urinary tract symptoms: Comment: Followed by Dr. Sandoval Code(s): N40.1 - Benign prostatic hyperplasia with lower urinary tract symptoms Category: Medical (2) Nephrolithiasis: Comment: Followed by Dr. Sandoval Code(s): N20.0 - Calculus of kidney Category: Medical Plan Six-month follow-up tele Orders: Orders AMB Urinalysis Automated Today Z13.9 - Encounter for screening, unspecified AMB Post Void Residual by ultrasound Today N40.1 - Benign prostatic hyperplasia with lower urinary tract symptoms Medications: Refilled bethanechol chloride 25 mg PO BID 90 days 180 tabs 1RF N39.0 - Urinary tract infection, site not specified, N40.1 - Benign prostatic hyperplasia with lower urinary tract symptoms terazosin 5 mg PO BEDTIME 90 days 90 caps 1RF Patient Instructions: Imaging studies, laboratory and physical exam results were discussed and r eviewed in detail. No major barriers to patient understanding were identified. An opportunity to ask questions regarding the treatment plan was provided. All questions were answered. The patient expressed understanding and agreement with the above treatment plan. The patient is aware they should contact our office by phone for worsening of their current condition or the appearance of new urologic symptoms. Compliance is encouraged with any medications and followup testing that is ordered. It is a privilege to participate in the urologic care of your patient. If you have any questions or concerns regarding treatment for the above conditions, or other urologic issues, please do not hesitate to contact me. The office telephone contact is [phone]. This note is constructed using voice recognition software. While every effort has been made to ensure accuracy hourly shift errors may have been included. Yours sincerely, Dr Fox Sandoval MD, [facility] - Urology Providers of Expert, Compassionate Care for the Genitourinary System Coding Level of Care Code Est Pt Level 3 (72794) Diagnoses Benign prostatic hyperplasia with lower urinary tract symptoms N40.1 Nephrolithiasis N20.0 CPT Codes Post Residual Void - PVR CPT Code: 32048-Xmsl Void Residual by ultrasound ([id number])
--- OUTSIDE RECORDS SUMMARY | 2024-07-27 16:42 | XMS_ITS | Clinical Summary ---
Author Organization [facility] Facility Address [address] [address] Care Team Providers Care Insulation Worker Apprentice Name Role Phone Edin Anguiano MD Primary Care Provider [phone] Allergies Active Allergy Reactions Criticality Noted Date Comments Clindamycin 01/14/2021 Sulfa Antibiotics 01/14/2021 Medications sertraline (ZOLOFT) 50 MG tablet Take 1.5 tablets by mouth 1 (one) time each day Active guaiFENesin (ROBITUSSIN) 100 MG/5ML syrup as directed Active ergocalciferol 1.25 MG (05807 UT) capsule Take 1 capsule by mouth every 30 (thirty) days Active docusate sodium (COLACE) 100 MG capsule Take 1 capsule by mouth 2 (two) times a day Active divalproex (DEPAKOTE) 500 MG EC tablet Take 1 tablet by mouth 2 (two) times a day Active calcium carbonate (TUMS) 500 MG chewable tablet Chew 2 tablets in the morning and 2 tablets in the evening. Active aspirin (ST KAILASH) 81 MG EC tablet Take 1 tablet by mouth 1 (one) time each day Active acetaminophen (TYLENOL 8 HOUR) 650 MG 8 hr tablet as needed Active insulin glargine (LANTUS) 100 UNIT/ML injection Inject 5 Units under the skin every night Active atorvastatin (LIPITOR) 40 MG tablet Take 40 mg by mouth 1 (one) time each day Active divalproex (DEPAKOTE) 250 MG EC tablet Take 250 mg by mouth in the morning and 250 mg in the evening and 250 mg before bedtime. Do not crush, chew, or split. . Active methylcellulose oral powder Take by mouth 1 (one) time each day Active metFORMIN (GLUMETZA) 500 MG 24 hr tablet Take 500 mg by mouth 1 (one) time each day with dinner Do not crush, chew, or split. Active finasteride (PROSCAR) 5 MG tablet Take 5 mg by mouth 1 (one) time each day Do not crush, chew, or split. Active terazosin (HYTRIN) 5 MG capsule Take 5 mg by mouth every night Active Active Problems Problem Noted Date Diagnosed Date Vitamin deficiency 01/14/2021 Testicular hypofunction 01/14/2021 Hypothyroidism 01/14/2021 Diabetes mellitus 01/14/2021 Chronic kidney disease stage 3 01/14/2021 Attention-deficit hyperactiv ity disorder predominantly inattentive type 01/14/2021 Stage 3a chronic kidney disease 01/14/2021 Type 2 diabetes mellitus wit h diabetic chronic kidney disease 01/14/2021 Renal osteodystrophy 01/14/2021 Family History Relation Status Comments Father Alive Mother Alive Social History Tobacco Use Types Packs/Day Years Used Date Smoking Tobacco: Never Smokeless Tobacco: Never Tobacco Cessation:Counseling Given: Not Answered Alcohol Use Standard Drinks/Week Comments No 0 (1 standard drink = 0.6 oz pur e alcohol) Sex and Gender Information Value Date Recorded Sex Assigned at Not on file Legal Sex Male 4:48 PM EST Gender Identity Not on file Sexual Orientation Not on file Last Filed Vital Signs Vital Sign Reading Time Taken Comments Blood Pressure 104/58 04/14/2022 3:32 PM EDT Pulse 82 04/14/2022 3:32 PM EDT Temperature - - Respiratory Rate - - Oxygen Saturation 96% 04/14/2022 3:32 PM EDT Inhaled Oxygen Concentration - - Weight 63 kg (139 lb) 10/21/2021 1:20 PM EDT Height 162.6 cm (5' 4 ) 04/14/2019 12:00 PM EDT Body Mass Index 23.86 04/14/2019 12:00 PM EDT Plan of Treatment Health Maintenance Due Date Last Done Comments Pneumococcal Vaccine: Pediat rics (0 to 5 Years) and At-Risk Patients (6 to 64 Years) (1 of 2 - PCV) 1974 Hepatitis B Vaccine (1 of 3 - 19+ 3-dose series) 10/24 Colorectal Cancer Screening: Annual FOBT 2017 Colorectal Cancer Screening: Colonoscopy 2017 Colorectal Cancer Screening: Sigmoidoscopy 2017 Diabetes: Ophthalmology Exam 07/30/2020 Diabetes: Pedal Pulse Checked 07/30/2020 Diabetes: Sensory Foot Exam 07/30/2020 Diabetes: Visual Foot Exam 07/30/2020 Diabetes: Hemoglobin A1C 10/03/2020 07/05/2020 Influenza Vaccine (#1) 2024 Procedures Procedure Name Priority Date/Time Associated Diagnosis Comments BLOOD PANEL (HC) Routine 07/05/2020 12:0 0 AM EST from Last 3 Months or Most Recently Relevant to Health Maintenance Results * (ABNORMAL) Blood Panel (07/05/2020 12:00 AM EST) Sodium 138 137 - 145 mmol/L [facility] BUN 20 9 - 20 mg/dl [facility] Calcium 8.7 8.4 - 10.2 mg/dl [facility] eGFR Non- 49(L) >60 ml/min [facility] Cholesterol 124 <200 mg/dl [facility] Triglycerides 180(H) <150 mg/dl [facility] Hemoglobin A1C 5.7(H) <5 % [facility] Potassium 4.3 3.5 - 5.1 mmol/L [facility] Creatinine 1.50(H) 0.70 - 1.30 mg/dl [facility] 07/05/2020 us [facility] Conversion LAB [id number] LICITED RESULTS Final Result [facility] from Last 3 Months or Most Recently Relevant to Health Maintenance Insurance [place]ICARE [place]ID [place] Care Teams Insulation Worker Apprentice Relationship Specialty Start Date End Date Edin Anguiano MD [address] [place] [address] PCP - General 07/09/20
== END 2024-07-27 15:06 | disposition home or self-care (01) ==
PROVIDERS: PCP Internal Medicine; Visit Provider Urology
DX: N40.1 Benign prostatic hyperplasia with lower urinary tract symptoms (principal); N20.0 Calculus of kidney; Z13.9 Encounter for screening, unspecified
CPT/HCPCS: 99213

== ENCOUNTER → 2024-07-27 14:30 | Outpatient (BNVA) | payer MEDICARE, MEDICAID, SELFPAY | PROVIDERS: PCP Internal Medicine; Visit Provider Urology | DX: N40.1 Benign prostatic hyperplasia with lower urinary tract symptoms (principal); N20.0 Calculus of kidney; N28.1 Cyst of kidney, acquired; N39.0 Urinary tract infection, site not specified; E11.9 Type 2 diabetes mellitus without complications | CPT/HCPCS: 51798; 81003; 99212 ==

== ENCOUNTER 2024-08-12 11:50 | Outpatient (AMB) | payer MEDICARE, MEDICAID, SELFPAY ==
--- NOTE | 2024-08-12 12:09 | MHC.OFFWIV ---
Intake Vital Signs 08/12/24 12:11 Weight 130 lb BP 110/62 Blood Pressure Location Lt brachial Position Sitting Pulse 89 Pulse Source Pulse Oximeter Pulse Oximetry (%) 96 Oxygen Delivery Method Room Air Intake Visit Reasons: EP-rt toe swollen Intake Note: Patient here for right big toe pain that started 2 weeks ago. Patient Tobacco Use Status: Never used Tobacco Allergies clindamycin [CLINDAMYCIN] Allergy (Unknown, Verified 08/12/24 12:11) UNKNOWN Sulfa (Sulfonamide Antibiotics) [SULFA (SULFONAMIDE ANTIBIOTICS)] Allergy (Unknown, Verified 08/12/24 12:11) UNKNOWN tuberculin, purified protein deriva [TB TEST] Allergy (Unknown, Verified 08/12/24 12:11) UNKNOWN Do you need a note to return to daycare/school/sports/work: No HPI HPI Comments History of Present Illness Details History of Present Illness The patient is a 53-year-old male presenting with toenail pain. 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 He has not had the nails trimmed in an undisclosed duration, which has resulted in persistent pain. Current symptoms include pain around the entire area of the toenail, though there is no reported swelling or drainage. Physical Exam General: Cooperative, healthy appearing, comfortable, no acute distress and well developed Orientation: Patient oriented x3 Limitations: in wheelchair Head: Normal to inspection Ears: Hearing grossly normal bilaterally Nose: Normal external nose present Face and sinus: Normal facial exam Eyes: Appearance normal, both eyes and all related structures Neck: Normal visual inspection and Yes full ROM Respiratory: Normal respiratory effort and able to speak in complete sentences. Skin: No rashes or lesions noted Extremities: Right great toe with onychomycosis, TTP, no erythema, warmth or edema or drainage. Full ROM all toes. [facility] Medical History History of adenomatous polyp of colon AIDS dementia CKD (chronic kidney disease) stage 1, GFR 90 ml/min or greater Anemia Diverticulosis Acquired hypothyroidism Lives in detention COVID-19 vaccine series completed Testicular hypofunction Depression ADHD (attention deficit hyperactivity disorder) Benign prostatic hyperplasia with lower urinary tract symptoms Dyslipidemia Acquired deformity of toenail Controlled diabetes mellitus type II without complication Nephrolithiasis Surgical History No pertinent past surgical history Family History Father Unknown family medical history Mother Unknown family medical history Brother No problems noted. Sister No problems noted. Daughter No problems noted. Social History Housing: Other Housing Other:: [facility] Alcohol intake: never Patient Tobacco Use Status: Never used Tobacco e-Cigarette/Vaping Use: Never Used Advance Directives Date on File: 09/08/22 service: No Current occupational status: disabled Current occupational exposures/hazards: No Cognitive needs: No Hearing needs: No Vision needs: Yes Review of Systems Const All systems reviewed & are unremarkable except as noted in HPI and below Physical Exam Vital Signs: Last Vital Signs Pulse 89 08/12/24 12:11 BP 110/62 08/12/24 12:11 Pulse Ox 96 08/12/24 12:11 Oxygen Delivery Method Room Air 08/12/24 12:11 Assessment & Plan Assessment & Plan (1) Toe pain, right: Code(s): M79.674 - Pain in right toe(s) Plan: Plan The primary focus is on addressing the right big toe toenail pain. An x-ray of the right foot will be conducted to rule out deeper issues not visible externally. A prompt referral reqeust to PCP for a new welder setter resistance machine has been made to ensure ongoing care. The x-ray findings, once reviewed, will guide subsequent management steps. The patient has been advised to use ice and [id number] pain relief as needed until further evaluation is completed. The results of the x-ray will be shared with the patient upon availability. Patient was informed and verbally consented to the use of an ambient scribe for clinic note documentation during this visit. Orders: Orders XR foot RT min 3V Today M79.674 - Pain in right toe(s) Coding Level of Care Code Est Pt Level 4 (54536) Diagnoses Toe pain, right M79.674
[2024-08-12 12:11] VITALS: BP 110/62; PULSE 89; O2SAT 96
--- OUTSIDE RECORDS SUMMARY | 2024-08-12 12:31 | XMS_ITS | Data Portability ---
Author Organization [place] - [facility] Address [address] [place] [id number] Care Team Providers Care Custom Frame Assembler Name Role Phone PILLO OCHOA Primary Care Provider Assessment Encounter Date Assessment Date Assessment LastModified by Organization Details LastModified Time 07/30/2018 07/30/2018 Overview/Histor y: 47-year-old male, who is new to the [facility], with a past medical history of mild dementia, CKD stage III, frequent UTIs, who is a resident at a fpc was evaluated after the visiting nurse noticed foul smelling urine that started yesterday. The patient denies any complaints. Exam: Pleasant male. Nontoxic appearing. Ambulating without difficulty with a walker. Lungs clear to auscultation bilaterally. Heart sounds regular with no obvious murmurs. Abdomen nontender to palpation. No CVA tenderness. Afebrile. BP 116/84. Heart rate 62 BPM. DDx considered, but not limited to: UTI. Pyelo. Pyelonephritis unlikely given the patient appears overall well and does not appear systemically ill with no CVA tenderness. Work up/Results: clean catch urine shows. Cloudy, concentrated appearing urine. 3+ leuks, + nitrites with heme +. Plan/Discussion : Patient's urine appears positive for a UTI. He was given a dose of Keflex 500 mg p.o. and will be prescribed a 7 day course. A urine culture was obtained to check for sensitivities. PT has no records on [facility]. Time On Scene with Patient: 00:37:50 [email or web address] Not available 07/30/2018 10:29:59 Plan of Treatment Reminders Order Date Submit Date Provider Last Modified By Organization Details Last Modified Time Details Appointments None recorded. Lab urinalysi s, dipstick 2018 019 [email or web address] [facility], [address] [place] [address], [place], [address], 9 10:29:21 culture, urine - Collected by [facility] 2018 019 RICKEY [facility], [address] [place], [address], 9 11:37:08 Referral None recorded. Procedures None recorded. Surgeries None recorded. Imaging None recorded. Medication Orders cephalexi n 500 mg capsule 2018 [email or web address] Not available 09:33:41 Keflex 500 mg capsule 2018 INTERFACE [id number] , [address] [facility], [place], [place], [id number], 9 09:44:51 Patient TargetsNo targets recorded. Patient Instructions Encounter Date Encounter Id Patient Instructions Last Modified By Organization Details Last Modified Time 07/30/2018 [id number] URINARY TRACT INFECTION INSTRUCTIONS BASIC INFORMATION Urinary tract infections(UTI) can involve any portion of the urinary tract. The most common presentation is a bladder infection/cystitis , which usually presents with urinary frequency, burning with urination, urgency, foul smelling cloudy urine and occasionally blood. Kidney infections are less frequent, but more serious, and present with fever, flank pain, malaise and sometimes shaking chills. UTI? s are common in women because of the female anatomy, and much less common in males. INSTRUCTIONS Drink plenty of fluid, water is best. Drinking fluids will help to flush the bacteria from your body. Urinate every 2-3 hours Wear cotton underwear and avoid Nylon, Spandex and Lycra which tend to trap moisture and thong underwear which may facilitate UTI? s . Avoid tub baths Avoid using Super Tampons Use only mild unscented soap to wash your genitals, such as Dove or Ivory, avoid heavily scented body washes. If you are sexually active urinate as soon as possible after intercourse. Yogurt and probiotics may help to establish a more healthy genital environment, and aid in prevention. MEDICATIONS 1.Antibiotics: Usually prescribed if you have a UTI, there are many different effective antibiotics available. It is important that you complete the course of antibiotics you are given. You should feel some improvement within 24-48 hours, if you do not it may be that the bacteria causing your infection is resistant to the prescribed medication. If a urine culture is obtained it will usually take at least 3-4 days to get the final result. 2. Anesthetic/Pain relievers: Phenazopyridine (Pyridium, Uribelle, AZO) is an anesthetic excreted in the urine. This medicine will turn your urine BRIGHT ORANGE! This is normal, and may stain your underwear can contacts. Take this medication as directed with food. 3. Tylenol and Ibuprofen can be helpful for the pain, fever and body aches that can be associated with a kidney infection. Please follow recommended dosing instructions on the bottle. FOLLOW UP 1. If your symptoms are not improving in 24-48 hours 2. If your symptoms are getting more severe 3. Any unusual vaginal discharge 4. Symptoms recur after you complete medication SEEK CARE IMMEDIATELY IF 1.You have shaking chills or temperature over 101.5 2. Severe flank pain 3. Persistent vomiting, unable to keep fluids or medicine down. 4. Worse despite medication. If you develop any new or worsening symptoms and need after hours care, please go to nearest ER and/or call 911. If you have additional concerns or develop a change in your condition between 8am-10pm, please call [facility] at [phone] to help navigate your care. Not available 07/30/2018 09:40:31 Reason for Referral None Reported. Results Created Date Observation Date Name Description Value Unit Range Abnormal Flag Note LastModifiedBy Organization Detail LastModifiedTime 07/30/1907/30/2018 urina lysis , dipst ick Appearance cloudy Not Available Spr - [facility]me [address], [place], [address], 07/30/2018 09:40:32 07/30/1907/30/2018 urina lysis , dipst ick Color yellow /straw Not Available Spr - Home [address], [place], [address], 07/30/2018 09:40:32 07/30/1907/30/2018 urina lysis , dipst ick Glucose negati ve Not Available Spr - Home [address] [place], [address], 07/30/2018 09:40:32 07/30/1907/30/2018 urina lysis , dipst ick Bilirubin negati ve Not Available Spr - Home [address] [place], [address], 07/30/2018 09:40:32 07/30/1907/30/2018 urina lysis , dipst ick Ketones NEG Not Available Spr - Home [address] [place], [address], 07/30/2018 09:40:32 07/30/1907/30/2018 urina lysis , dipst ick Sp. Jewett 1.005 Not Available Spr - Home [address] [place], [address], 07/30/2018 09:40:32 07/30/1907/30/2018 urina lysis , dipst ick Blood ++ Not Available Spr - Home [address] [place], [address], 07/30/2018 09:40:32 07/30/1907/30/2018 urina lysis , dipst ick pH 6 Not Available Spr - Home [address] [place], [address], 07/30/2018 09:40:32 07/30/1907/30/2018 urina lysis , dipst ick Protein negati ve Not Available Spr - Home [address] [place], [address], 07/30/2018 09:40:32 07/30/1907/30/2018 urina lysis , dipst ick Urobilirubin negati ve Not Available Spr - Home [address] [place], [address], 07/30/2018 09:40:32 07/30/1907/30/2018 urina lysis , dipst ick Nitrites ++ Not Available Spr - [facility] [address], [place], [address], 07/30/2018 09:40:32 07/30/19 19 07/30/2018 urina lysis , dipst ick Leukocytes +++ Not Available Spr - H ome [address] [place], [address], 07/30/2018 09:40:32 07/30/19 19 07/30/2018 cultu re, urine specimen description URINE Not Available [facility] [address] [place], [address], 08/01/2018 11:37:08 07/30/1907/30/2018 cultu re, urine special requests NONE Not Available [facility] [address] [place], [address], 08/01/2018 11:37:08 07/30/1908/01/2018 cultu re, urine culture >100,0 00 COL/ML ESCHER ICHIA COLI abnormal Not Available [facility] [address] [place], [address], 08/01/2018 11:37:08 07/30/1908/01/2018 cultu re, urine report status FINAL 2018 Not Available [facility] [address] [place], [address], 08/01/2018 11:37:08 07/30/1908/01/2018 cultu re, urine organism ORGANI SM >100,0 00 COL/ML ESCHER ICHIA COLI Not Available [facility] [address] [place], [address], 08/01/2018 11:37:08 07/30/1908/01/2018 cultu re, urine method METHOD MIN. INHIB. CONC. (MCG/M L) Not Available [facility] [address] [place], [address], 08/01/2018 11:37:08 07/30/1908/01/2018 cultu re, urine ampicillin AMPICI LLIN RESIST ANT resistant Not Available [facility] [address] [place], [address], 08/01/2018 11:37:08 07/30/19 19 08/01/2018 cultu re, urine ampicillin/s ulbactam AMPICI LLIN/S ULBACT AM INTERM EDIATE intermedi ate Not Available [facility] [address] [place], [address], 08/01/2018 11:37:08 07/30/1908/01/2018 cultu re, urine amoxicillin/ clavulanic acid AMOXIC ILLIN/ CLAVUL AN SUSCEP TIBLE susceptib le Not Available [facility] [address] [place], [address], 08/01/2018 11:37:08 07/30/19 19 08/01/2018 cultu re, urine cefazolin CEFAZO KALIN SUSCEP TIBLE susceptib le Not Available [facility] [address] [place], [address], 08/01/2018 11:37:08 07/30/1908/01/2018 cultu re, urine cefepime CEFEPI ME SUSCEP TIBLE susceptib le Not Available [facility] [address] [place], [address], 08/01/2018 11:37:08 07/30/1908/01/2018 cultu re, urine ceftriaxone CEFTRI AXONE SUSCEP TIBLE susceptib le Not Available [facility] [address] [place], [address], 08/01/2018 11:37:08 07/30/1908/01/2018 cultu re, urine ciprofloxaci n CIPROF LOXACI N RESIST ANT resistant Not Available [facility] [address] [place], [address], 08/01/2018 11:37:08 07/30/19 19 08/01/2018 cultu re, urine gentamicin GENTAM ICIN SUSCEP TIBLE susceptib le Not Available [facility] [address] [place], [address], 08/01/2018 11:37:08 07/30/19 19 08/01/2018 cultu re, urine levofloxacin LEVOFL OXACIN RESIST ANT resistant Not Available [facility] [address] [place], [address], 08/01/2018 11:37:08 07/30/19 19 08/01/2018 cultu re, urine meropenem MEROPE NEM SUSCEP TIBLE susceptib le Not Available [facility] [address] [place], [address], 08/01/2018 11:37:08 07/30/19 19 08/01/2018 cultu re, urine nitrofuranto in NITROF URANTO IN SUSCEP TIBLE susceptib le Not Available [facility] [address] [place], [address], 08/01/2018 11:37:08 07/30/19 19 08/01/2018 cultu re, urine piperacillin /tazobactam PIPERA CILLIN /TAZOB AC SUSCEP TIBLE susceptib le Not Available [facility] [address] [place], [address], 08/01/2018 11:37:08 07/30/19 19 08/01/2018 cultu re, urine trimeth/sulf amethox TRIMET H/SULF AMETHO X SUSCEP TIBLE susceptib le Not Available [facility] [address] [place], [address], 08/01/2018 11:37:08 07/30/19 19 08/01/2018 cultu re, urine tetracycline TETRAC YCLINE SUSCEP TIBLE susceptib le Not Available [facility] [address] [place], [address], 08/01/2018 11:37:08 Result Notes None recorded. Medical Equipment None Reported. Allergies Allergen ID Allergen Name Allergen Category Reaction Reaction Severity Criticality Documentation Date Start Date Code Code System Note Provider Name and Address Organization Details Recorded Time 79639 clindamyc in Not available Not available Not available Not available 07/30/2018 6852 RxNorm ANGEL AMADOR, CLOTH STRETCHER [address], [place], [place], [address], [place] - [facility] 9 09:34:06 28199 Substance with sulfonami de structure and antibacte rial mechanism of action (substanc e) medicatio n Not available Not available Not available 07/30/2018 73452 8003 SNOMED ANGEL AMADOR, CLOTH STRETCHER [address], [place], [place], [address], [place] - [facility] 9 09:34:19 Medications Name Sig Start Date Stop Date Status Note LastModified by Organization Details LastModified Time atorvastati n 40 mg tablet active Not Available Not Available Not Available Lantus U-100 Insulin 100 unit/mL subcutaneou s solution active Not Available Not Available N ot Available levothyroxi ne 75 mcg tablet active Not Available Not Available Not Available gemfibrozil 600 mg tablet active Not Available Not Available Not Available cephalexin 500 mg capsule 500 mg PO administe red on scene. Time administe red: 9:41 2018 active Not Available Not Available Not Avai lable divalproex ER 500 mg tablet,exte nded release 24 hr active Not Available Not Available Not Available sertraline 25 mg tablet 07/30 completed Not Available Not Available Not Available lisinopril 2.5 mg tablet active Not Available Not Available Not Available divalproex ER 250 mg tablet,exte nded release 24 hr active Not Available Not Available Not Available lactulose 10 gram/15 mL oral solution active Not Available Not Available Not Available Asprin Ec Low Dose active Not Available Not Available Not Available Tivicay active Not Available Not Avail able Not Available Prezcobix active Not Available Not Crystal ilable Not Available Biktarvy 50 mg-200 mg-25 mg tablet active Not Available Not Available Not Available Vitals Date Recorded Heart rate Body temperature Oxygen saturation Oxygen saturation in Arterial blood by Pulse oximetry Respiratory rate Systolic blood pressure Diastolic blood pressure Provider Name and Address Organization Details Last Updated DateTime 9 62 /min 97.2 [degF] 98 % 98 % 16 /min 116 mm[Hg] 84 mm[Hg] Not Available [facility] 9 09:39:00 Social History Question Answer Notes LastModified by Organizat ion Details LastModified Time Tobacco Smoking Status Never Smoker ANGEL AMADOR NP [address], [place], [address], [place] - [facility] 07/30/2018 09:34:44 Do You Have An Advance Directive? Yes Information not available 07/30/2018 What Is Your Code Status? Full Code Information not available 07/30/2018 Within The Past 12 Months, Has It Happened That The Food You Bought Just Didn't Last And You Didn't Have Money To Get More. Normal Information not available 07/30/2018 Within The Past 12 Months, Have You Worried That Your Food Would Run Out Before You Got Money To Buy More. Yes Information not available 07/30/2018 Fall Risk: Do You Feel Unsteady When Standing Or Walking? Yes Information not available 07/30/2018 What Was The Date Of Your Most Recent Tobacco Screening? 07/30/2018 Information not available 01/20/2019 Sex: Unknown Functional Status None recorded. Mental Status None recorded. Family History Relationship Description Onset Age of this Age Resolved Age Notes LastModified by Organization Details LastModified Time Father No current problems or disability Not available 06/2018 09:34:33 Mother No current problems or disability Not available 06/2018 09:34:33 Medical History Condition Response Diabetes Y Coronary Artery Disease N Cancer N Hypertension Y Asthma N Depression N COPD N Kidney Disease Y Past Encounters Encounter ID Performer Location Encounter Start Date Encounter Closed Date Diagnosis/Indication Diagnosis SNOMED-CT Code Diagnosis ICD10 Code Diagnosis Note [id number] ANGEL AMADOR NP [facility] [address] [place] [address] 07/30/2018 09:13:37 08/02/2018 10:12:51 Urinary tract infectious disease 89409447 N39.0 Health Concerns Section Related Observation LastModified by Organization Detai ls LastModified Time None Recorded Concern Status LastModified by Organization Details LastModified Time None Recorded Advance Directives Directive Y: Payers Encounter Date Sequence Insurance Name Policy Number Policy Vaughn Covered Member ID Vaughn Member ID Guarantor Name 07/30/2018 1 MEDICARE B-[place]: [facility] [employer] Omero Silva [id number] Omero Silva Notes Date Note Type Note Provider Name and Address Organization Details Recorded Time 07/30/2018 text/html 47-year-old male, who is new to [facility], with a past medical history includes dementia, chronic kidney disease stage III, UTIs, was evaluated for foul smelling urine. The patient was seen by a visiting nurse today who was concerned patient may have a UTi. The patient denies any complaints such as increased frequency, dysuria, hematuria, fever or any other symptoms. ANGEL AMADOR NP [address] [facility], [place], [address], [place] - [facility] 07/30/2018 10:30:24
--- OUTSIDE RECORDS SUMMARY | 2024-08-12 12:31 | XMS_ITS | Clinical Summary ---
Author Organization Formerly [facility] Facility Address [address] [address] Care Team Providers Care Chopped Strand Operator Name Role Phone Edin Anguiano MD Primary Care Provider [phone] Allergies Active Allergy Reactions Criticality Noted Date Comments Clindamycin 01/14/2021 Sulfa Antibiotics 01/14/2021 Medications sertraline (ZOLOFT) 50 MG tablet Take 1.5 tablets by mouth 1 (one) time each day Active guaiFENesin (ROBITUSSIN) 100 MG/5ML syrup as directed Active ergocalciferol 1.25 MG (30809 UT) capsule Take 1 capsule by mouth [...] mg/dl PVNMA 07/05/2020 us [facility] [id number] LICITED RESULTS Final Result PVNMA from Last 3 Months or Most Recently Relevant to Health Maintenance Insurance [place]ICARE [place]ID [place] Care Teams Chopped Strand Operator Relationship Specialty Start Date End Date Edin Anguiano MD [address] [place] [address] PCP - General 07/09/20
== END 2024-08-12 12:35 | disposition home or self-care (01) ==
PROVIDERS: PCP Internal Medicine; Visit Provider Physician Assistant
DX: M79.674 Pain in right toe(s) (principal)

== ENCOUNTER 2024-08-12 11:50 | Outpatient (REF) | payer MEDICARE, MEDICAID, SELFPAY ==
--- NOTE | ~2024-08-12 | XR_ITS ---
EXAMINATION: XR FOOT 3 OR MORE VIEWS RIGHT HISTORY: M79.674 - Pain in right toe(s) COMPARISON: There are no prior studies available for comparison. FINDINGS: Three views of the right foot are submitted. The bones are osteopenic. There is no fracture or dislocation. The joint spaces are preserved. The soft tissues are unremarkable. XR/XR foot RT min 3V IMPRESSION: Osteopenia. Otherwise unremarkable examination of the right foot. Electronically signed by: Paulie Coulter MD 08/12/2024 01:35 PM NICHOLAS
== END 2024-08-12 11:51 | disposition home or self-care (01) ==
LOC: HO.HMGCX 11:50
PROVIDERS: PCP Internal Medicine; Visit Provider Physician Assistant
DX: M79.674 Pain in right toe(s) (principal)
CPT/HCPCS: 73630; 99212

== ENCOUNTER → 2024-08-12 13:09 | Outpatient (BNV) | payer MEDICARE, MEDICAID, SELFPAY | PROVIDERS: PCP Internal Medicine; Visit Provider Radiology Diagnostic Radiology | DX: M85.871 Other specified disorders of bone density and structure, right ankle and foot (principal) | CPT/HCPCS: 73630 ==

== ENCOUNTER 2025-01-14 09:24 | Outpatient (REF) | payer MEDICARE, MEDICAID, SELFPAY ==
--- OUTSIDE RECORDS SUMMARY | 2025-01-12 12:10 | XMS_ITS | Continuity of Care Document ---
Author Organization [facility] ter Address [address] [place] [id number] Care Team Providers Care Staff Forester Name Role Phone James SALCIDO, Erin Hicks Primary Care Physician Encounter [facility] Date(s): 01/12/25 - 01/12/[address] [address] Dis[facility] Disposition: A-D/C Home Attending Physician: Chance Roberts MD Admitting Physician: Chance Roberts MD Referring Physician: Chance Roberts MD Encounter Type: Disch Daystay Allergies, Adverse Reactions, Alerts Substance Criticality Severity Reaction Reaction Severity Status clindamycin unknown Active sulfamethoxazole-trimethoprim unknown Active Sclavo Test-PPD unknown Acti ve Other Environmental Allergy 1 Active 1tobacco Medications atorvastatin 20 mg oral tablet 1 tablet = 20 mg, By Mouth, Daily, # 30 tablet, 0 Refills, Maintenance, 10/18/24 9:41:00 AM EDT, Tablet, Partial fill upon patient request if the prescription is for a schedule II opioid drug. Start Date: 10/18/24 Status: Ordered Quantity: 30.0 Unit: tablet Repeat number: 1 bethanechol 25 mg oral tablet 25 mg, 1, tablet, By Mouth, 2 times a day, Refills 0, Maintenance, 10/18/24 9:41:00 AM EDT, Partial fill upon patient request if the prescription is for a schedule II opioid drug. Start Date: 10/18/24 Status: Ordered Repeat number: 1 Biktarvy oral tablet 1 tablet, By Mouth, Daily, 0 Refills, Maintenance, 10/18/24 9:41:00 AM EDT, Partial fill upon patient request if the prescription is for a schedule II opioid drug. Start Date: 10/18/24 Status: Ordered Repeat number: 1 calcium carbonate 500 mg (200 mg elemental calcium) oral tablet, chewable 500 mg, 1, tablet, By Mouth, 2 times a day, Refills 0, Maintenance, 10/18/24 9:41:00 AM EDT, Partialfill upon patient request if the prescription is for a schedule II opioid drug. Start Date: 10/18/24 Status: Ordered Repeat number: 1 Citrucel 500 mg oral tablet 1 tablet = 500 mg, By Mouth, Daily, 0 Refills, Maintenance, 11/01/24 3:25:00 PM EDT, Partial fill upon patient request if the prescription is for a schedule II opioid drug. Start Date: 11/01/24 Status: Ordered Repeat number: 1 divalproex sodium 250 mg oral tablet, extended release 1 tablet = 250 mg, By Mouth, Daily at bedtime, 0 Refills, Maintenance, 10/18/24 9:41:00 AM EDT, Partial fill upon patient request if the prescription is for a schedule II opioid drug. Start Date: 10/18/24 Status: Ordered Repeat number: 1 divalproex sodium 500 mg oral tablet, extended release 1 tablet = 500 mg, By Mouth, 2 times a day, 0 Refills, Maintenance, 10/18/24 11:43:00 AM EDT, Partial fill upon patient request if the prescription is for a schedule II opioid drug. Start Date: 10/18/24 Status: Ordered Repeat number: 1 docusate sodium 100 mg oral capsule 1 capsule = 100 mg, By Mouth, 2 times a day, 0 Refills, Maintenance, 10/18/24 9:41:00 AM EDT, Partial fill upon patient request if the prescription is for a schedule II opioid drug. Start Date: 10/18/24 Status: Ordered Repeat number: 1 ibuprofen 400 mg oral tablet 800 mg, 2, tablet, By Mouth, Every 8 hours, PRN, # 120 tablet, Refills 0, Tot. Refills 0, Maintenance, Pain , Mild, 11/13/24 3:52:00 PM EDT, Route to Pharmacy Electronically, [facility] 3,Partial fill upon patient request if the prescription is for a schedule II opioid drug., 163, cm, 11/01/24 15:07:00 EDT, Height, 63.4, kg, 10/27/24 12:43:00 EDT, Dry Weight Start Date: 11/13/24 Status: Ordered Quantity: 120.0 Unit: tablet Repeat number: 1 levothyroxine 75 mcg (0.075 mg) oral tablet 1 tablet = 75 mcg, By Mouth, Daily, 0 Refills, Maintenance, 10/18/24 9:41:00 AM EDT, Partial fill upon patient request if the prescription is for a schedule II opioid drug. Start Date: 10/18/24 Status: Ordered Repeat number: 1 metFORMIN 500 mg oral tablet 1 tablet = 500 mg, By Mouth, Daily, 0 Refills, Maintenance, 10/18/24 9:41:00 AM EDT, Partial fill upon patient request if the prescription is for a schedule II opioid drug. Start Date: 10/18/24 Status: Ordered Repeat number: 1 sertraline 25 mg oral tablet 3 tablet = 75 mg, By Mouth, Daily, 0 Refills, Maintenance, 10/18/24 9:41:00 AM EDT, Partial fill upon patient request if the prescription is for a schedule II opioid drug. Start Date: 10/18/24 Status: Ordered Repeat number: 1 terazosin 5 mg oral capsule 5 mg, 1, capsule, By Mouth, Daily at bedtime, Refills 0, Maintenance, 10/18/24 9:41:00 AM EDT, Partial fill upon patient request if the prescription is for a schedule II opioid drug. Start Date: 10/18/24 Status: Ordered Repeat number: 1 Thera-Tabs M oral tablet 1 tablet, By Mouth, Daily, 0 Refills, Maintenance, 10/18/24 9:41:00 AM EDT, Partial fill upon patient request if the prescription is for a schedule II opioid drug. Start Date: 10/18/24 Status: Ordered Repeat number: 1 Tylenol 8 Hour 650 mg oral tablet, extended release 2 tablet = 1,300 mg, By Mouth, Every 8 hours, 0 Refills, Maintenance, 11/01/24 3:26:00 PM EDT, Partial fill upon patient request if the prescription is for a schedule II opioid drug. Start Date: 11/01/24 Status: Ordered Repeat number: 1 Results Radiology Reports * Exam Date Time Procedure Performing Provider Status 01/12/25 10:45 AM ERCP Both Ducts Auth (Ve rified) Notes: (ERCP Both Ducts) Reason For Exam: STENT REMOVAL RESULT: ERCP Both Ducts ERCP Both Ducts INDICATION: Reason: STENT REMOVAL COMPARISONS: None TECHNIQUE: Fluoroscopy support was provided. There was no radiologist in attendance. FLUOROSCOPY TIME: 40.9 seconds EXPOSURE: 2.7105 Gycm2 (Dose Area Product) TECHNOLOGIST TIME: 30 minutes FINDINGS: 9 images were submitted. A plastic biliary stent was removed and a balloon sweep was performed. Please refer to operative note for full details. IMPRESSION: See above. WSN: [id number] Ordering Physician: Chance Roberts Dictated By: Gregory Lyon MD Dictated Date/Time: 01/12/25 2:02 pm Reviewed By: Gregory Lyon MD Signed By: Gregory Lyon MD Signed Date/Time: 01/12/25 2:02 pm Transcribed By: ANUSHKA Transcribed Date/Time: 01/12/25 2:02 pm Social History Social History Type Response Smoking Status Never (less than 100 in lifetime) entered on: 11/01/24 Sex Sex Representation Male (finding) History and physical note * Chance Roberts MD: PERFORM Event Display: History and Physical Hospital Authored Date: [id number] Patient: ??JUANCARLOS CEJA ? Age:??54 Years?Sex:??Male?:??1970?? FOCUSED HISTORY & PHYSICAL EXAMINATION ?? Indication for Procedure: Choledocholithaiss? Past Medical History: ?No problems recorded? Social History: Tobacco Details:??Use: Never (less than 100 in lifetime).? Family History: No Family History documented.? Medications: Medication List ? Active Medications ?Ordered ? Lactated Ringers Injection 1,000 mL: 100 mL/hr, IV Infusion. ?Prescribed ? Ibuprofen: 800 mg, 2 tablet, By Mouth, Every 8 hours, PRN: Pain , ? Mild, 120 tablet, 0 Refill(s). ?Documented ? Acetaminophen: 1,300 mg, 2 tablet, By Mouth, Every 8 hours, 0 ? Refill(s). ? Atorvastatin: 20 mg, 1 tablet, By Mouth, Daily, 30 tablet, 0 ? Refill(s). ? Bethanechol: 25 mg, 1 tablet, By Mouth, 2 times a day, 0 Refill(s). ? bictegravir/emtricitabine/tenofovir: 1 tablet, By Mouth, Daily, 0 ? Refill(s). ? Calcium Carbonate: 500 mg, 1 tablet, By Mouth, 2 times a day, 0 ? Refill(s). ? Divalproex Sodium: 250 mg, 1 tablet, By Mouth, Daily at bedtime, 0 ? Refill(s). ? Divalproex Sodium: 500 mg, 1 tablet, By Mouth, 2 times a day, 0 ? Refill(s). ? Docusate: 100 mg, 1 capsule, By Mouth, 2 times a day, 0 Refill(s). ? Levothyroxine: 75 mcg, 1 tablet, By Mouth, Daily, 0 Refill(s). ? Metformin: 500 mg, 1 tablet, By Mouth, Daily, 0 Refill(s). ? Methylcellulose: 500 mg, 1 tablet, By Mouth, Daily, 0 Refill(s). ? Multivitamin With Minerals: 1 tablet, By Mouth, Daily, 0 Refill(s). ? Sertraline: 75 mg, 3 tablet, By Mouth, Daily, 0 Refill(s). ? Terazosin: 5 mg, 1 capsule, By Mouth, Daily at bedtime, 0 Refill(s). ? Medications Inactivated in the Last 72 Hours ? No medications found.? Allergies: Other Environmental Allergy; Sclavo Test-PPD; sulfamethoxazole-trimethoprim; clindamycin? Physical Examination: Vitals:?? 01/12/2025 08:48?Height ?165 cm 01/12/2025 08:48?Weight ?61 kg ? 01/12/2025 08:48?Body Mass Index ?22.41 kg/m2 ? 01/12/2025 08:48?Body surface area ?1.67 ? 01/12/2025 08:48?BSA [place] ?1.67 ? 01/12/2025 08:48?Temperature ?97 DegF 01/12/2025 08:48?Temperature route: ?Temporal ? 01/12/2025 08:48?Pulse Rate ?62 bpm ? 01/12/2025 08:48?Respiratory Rate ?16 br/min ? 01/12/2025 08:48?Systolic Blood Pressure ?112 mm Hg ? 01/12/2025 08:48?Diastolic Blood Pressure ?66 mm Hg ? 01/12/2025 08:48?Mean Arterial Pressure ?81 mm Hg ? 01/12/2025 08:48?Oxygen Saturation ?99 % ? 01/12/2025 08:48?Mode of delivery (oxygen) ?Room air ? Lungs: _Speaking comfortably; not dyspneic. Heart: _Regular rhythm, no murmur or gallop. Neuro: _Alert & oriented x 3. Abdomen: _Soft, nontender nondistended. Bowel sounds normal. ?? Plan: Endoscopic retrograde cholangiopancreatography with or without biopsy Note * Yousif Cruz RN: PERFORM Event Display: Discharge/Transfer Note Hospital Authored Date: [id number] Nursing Discharge Note Entered On: 01/12/2025 11:03 EDT Performed On: 01/12/2025 11:03 EDT by Yousif Cruz RN Nursing Discharge Note 2 Discharge Time : 01/12/2025 12:10 EDT Clara Foss RN - 01/12/2025 12:24 EDT Discharge Level of Care at Discharge : Home/Jail/Foster Care Patient Left Unit Via : Wheelchair Patient Accompanied Off Unit with : Responsible adult DC Instructions Provided & Signed by Pt : Yes Patient Understands D/C Instructions : Yes Patient Instructions Discharge Signed : Yes Did Pt have Specialty Bed or Wound Vac : No Yousif Cruz RN - 01/12/2025 11:03 EDT * Yousif Cruz RN: PERFORM Event Display: Patient Education/Instruction Authored Date: [id number] Surgery Adult Discharge Instructions [address] [address] Name: JUANCARLOS CEJA : 1970?? Visit: 01/12/2025 08:22?? Current Date: 01/12/2025 11:03 ?? Account: [id number]?? Surgery Discharge Instructions We would like to thank you for allowing us to assist you with your healthcare needs. The following includes patient education materials and information regarding your injury/illness. Our entire staffstrives to provide an excellent experience for our patients and their families. PLEASE ENSURE YOU FOLLOW-UP PER THE INSTRUCTIONS BELOW! ?? YOUR OPINION IS IMPORTANT TO US! Please complete the survey you may receive by mail or email. Your feedback will be used to make improvements to the healthcare experiences of our patients and their families. Surveys are administered by [employer] ?? If further treatment with your primary care physician or another doctor is recommended, it is important for you to keep the appointment. Call your primary care physician or return to the Emergency Department immediately if your condition worsens, fails to improve, or new symptoms develop. If you need to find a doctor, you can call [facility] for a referral at [phone] or toll free at [phone]) or log in to [email or web address].. ?? [facility], in keeping with [facility] guidance, no longer requires face masks for staff, patientsor visitors in most situations. Similiar to time spent indoors at other locations, there is the chance that you were exposed to repiratory viruses during your time with us (such as flu or COVID-19). If you develop symptoms concerning for a viral respiratory infection, please seek testing (and treatment if indicated) from your medical provider or home test kit. ?? You can view and manage your care through the patient portal or by using a health care connor of your choosing. [employer] is a website that allows you to securely view your medical information including your hospital discharge summary, office visit summaries, medications and follow-up visits. You can also request appointments, renew medications, and request access to your medical information using a health care connor of your choosing, or just ask a question. You are entitled to know the individuals who participated in your treatment. This information is available within your medical record and will be provided upon your request. You can enroll at [email or web address] or register d uring your next office visit. You have been discharged from [facility], Patient Care Unit: ENDO??. If you have any questions regarding these instructions after you leave, please call us and we will be happy to assist you. [facility] Your Care Team Attending Physician Chance Roberts MD?? Discharging Providers Chance Roberts MD Reason for Admission STENT REMOVAL Primary Care Provider James SALCIDO, Erin Hicks? Advance Directive Health Care Proxy on File No Patient refuses to discuss What to do next Instructions From Your Doctor ?? Orders?? Daystay Protocol, ??01/12/25 9:45:00 EDT?? You Need to Schedule the Following Appointments Follow Up with??follow up with your pcp Follow Up with??Erin Ramirez When:??In 0 days [facility] [place] [id number]- Business (1) Discharge Medications JUANCARLOS CEJA :1970 Visit Date:01/12/2025 Medications: Please continue your medications until treatment is completed or stopped by your provider. You may resume your daily prescription medications. Discuss any questions related to medications with your provider. What How Much When Instructions Next Dose Unchanged Acetaminophen (Tylenol 8 Hour 650 mg oral tablet, extended release) 2 tab(s) Oral Every 8 hours Unchanged Atorvastatin (atorvastatin 20 mg oral tablet) 1 tab(s) Oral Daily Unchanged Bethanechol (bethanechol 25 mg oral tablet) 1 tab(s) Oral Twice a day Unchanged bictegravir/ emtricitabine/ tenofovir (Biktarvy oral tablet) 1 tab(s) Oral Daily Unchanged Calcium Carbonate (calcium carbonate 500 mg (200 mg elemental calcium) oral tablet, chewable) 1 tab(s) Oral Twice a day Unchanged Divalproex Sodium (divalproex sodium 250 mg oral tablet, extended release) 1 tab(s) Oral Daily at Bedtime Unchanged Divalproex Sodium (divalproex sodium 500 mg oral tablet, extended release) 1 tab(s) Oral Twice a day Unchanged Docusate (docusate sodium 100 mg oral capsule) 1 capsule Oral Twice a day Unchanged Ibuprofen (ibuprofen 400 mg oral tablet) 2 tab(s) Oral Every 8 hours as needed for Pain , Mild Unchanged Levothyroxine (levothyroxine 75 mcg (0.075 mg) oral tablet) 1 tab(s) Oral Daily Unchanged Metformin (metFORMIN 500 mg oral tablet) 1 tab(s) Oral Daily Unchanged Methylcellulose (Citrucel 500 mg oral tablet) 1 tab(s) Oral Daily Unchanged Multivitamin With Minerals (Thera-Tabs M oral tablet) 1 tab(s) Oral Daily Unchanged Sertraline (sertraline 25 mg oral tablet) 3 tab(s) Oral Daily Unchanged Terazosin (terazosin 5 mg oral capsule) 1 capsule Oral Daily at Bedtime Allergies (NKA means No Known Allergies) Other Environmental Allergy Sclavo Test-PPD??(unknown) clindamycin??(unknown) sulfamethoxazole-trimethoprim??(unknown) Education Materials Below is the list of Educational Leaflet Providered with your Discharge Instructions. [employer] Patient Education - Surgery Medical Daystay Surgical Overnight Discharge Instructions?? Valuables and Belongings I fully understand and agree that [facility] accepts no responsibility for all my personal property including clothing, toilet articles, radios, jewelry, dentures, hearing aids, rings, money, or any other property that is in my possession or is brought to me after admission. I understand certain valuables may be placed in a hospital safe for a short period of time. I understand that the hospital is not liable for loss or damage due to accident, fire, or other natural occurrence while said property is in the safe. I accept full responsibility for any personal property that I keep with me, and will not hold the hospital responsible in case of loss or disappearance. I acknowledge that i have been encouraged to send valuables and belongings home. ? Other Discharge Information ? Case Management Discharge Plan?? Discharge Plan?? Discharge Level of Care at Discharge: Home/Jail/Foster Care ?? Pulmonary Rehab Status?? Pulmonary Rehab Discharge Status?? Respiratory Rate: 21 br/min ? Common Emergency Awareness Tips IS IT A STROKE? Act FAST and Check for these signs: FACE Does the face look uneven? ARM Does one arm drift down? SPEECH Does their speech sound strange? TIME Call at any sign of stroke ?? Heart Attack Signs Chest discomfort: Most heart attacks involve discomfort in the center of the chest and lasts more than a few minutes, or goes away and comes back. It can feel like uncomfortable pressure, squeezing, fullness or pain. Discomfort in upper body: Symptoms can include pain or discomfort in one or both arms, back, neck, jaw or stomach. Shortness of breath: With or without discomfort. Other signs: Breaking out in a cold sweat, nausea, or lightheaded. Remember, MINUTES DO MATTER. If you experience any of these heart attack warning signs, call to get immediate medical attention! ?? Smoking can increase your chances of developing chronic health problems and can cause harmful effects to other family members in your house. If you smoke, you are strongly encouraged to quit. Please call [facility] at [phone] or [phone]) or log in to [email or web address] for referrals to smoking cessation programs. ?? The National Suicide Prevention Hotline is available 19/01 if you or someone you know needs to find a reason to keep living. By calling 7-927-929-imgfave (2609) you'll be connected to a skilled, trained counselor at a crisis center in your area. SURGERY DISCHARGE INSTRUCTIONS SIGNATURE PAGE MAEVERENE JANGN Location:[facility] Registration Date and Time:01/12/2025 08:22 EDT Primary Care Physician: James SALCIDO, Erin Hicks, Attending Physician: Chance Roberts MD, I JUANCARLOS CEJA, have received the above patient education materials/instructions and have verbalized understanding. If ambulance or transport services are being used I further acknowledge being givena choice of service. ?? If you need to contact me, please call me at this number: . Patient/Quad Stayer Name: Patient/Quad Stayer Signature: Relationship to Patient: Witness Name/Signature: Date: * Yousif Cruz RN: PERFORM, SIGN, VERIFY Event Display: Patient Education Handout Authored Date: [id number] * Yousif Cruz RN: PERFORM Event Display: Patient Education Leaflets Authored Date: [id number] Surgery Medical Daystay Surgical Overnight Discharge Instructions ?? 295 Medical Daystay/Surgical Overnight Discharge Instructions ? Since your coordination and judgment may be altered by medication and/or anesthesia, a responsible adult must drive you home from the hospital. ? If you have received medication for pain or sedation while under our care, you should not drive, operate machinery, drink alcohol, or sign any legal documents for 24 hours.?? You should have someone with you at home tonight. ? Remain at home the day of discharge.?? You may be up and about unless otherwise instructed by your physician. ? You may resume your daily prescription medication schedule.?? Any depressant medication should be avoided for 24 hours unless otherwise instructed by your surgeon or anesthesiologist. ? Call your physician for a follow-up appointment.? If you experience unusual or severe pain not relied by your pain medication, excessive bleedingor drainage, persistent nausea and vomiting, excessive swelling or redness, foul odor from incisionsite or fever over 100.6F, you need to call your physician. ? A follow-up phone call by a nurse will be made the day after your procedure.?? If you have stayed with us over night, you will not be receiving a follow-up phone call. ? Nausea and vomiting are a common side effect of prescription pain medication.?? We recommend that pills are not taken on an empty stomach.?? While taking any prescription pain medication you should not drive or drink alcohol. ? Patient Care team information Care Team Personnel Name: James SALCIDO, Erin Hicks Position: Reference Physician Member Role: PCP Address: [place], [place] [address] Telecom: Name: Fabiola CUELLAR, Arianna Position: [facility] RN Member Role: Primary Care Nurse Name: Tony Dorsey MD Position: [facility] Outreach Member Role: [employer] Consult[employer] Physician Care Team Related Persons Name: AMY CHAMPION Name: SOPHIA WILSON Insurance Providers Guarantor name: Health Plan Information #: 1 Payer: MEDICARE B Payer Identifier: Member Number: [id number] Group Number: Subscriber Identifier: [id number] Relationship to Subscriber: self Coverage Type: NA Coverage Verification Date: Telecom: Address: [facility] Information #: 2 Payer: [facility] [employer] Payer Identifier: Member Number: [id number] Group Number: Subscriber Identifier: [id number] Relationship to Subscriber: self Coverage Type: MEDICAID Coverage Verification Date: Telecom: Address:
--- OUTSIDE RECORDS SUMMARY | 2025-01-14 09:27 | XMS_ITS | Patient Health Record ---
Author Organization [facility] Address [address] [place] [address] Care Team Providers Care Community Health Education Coordinator Name Role Phone Annmarie SALCIDO, Nicole Jamison Primary Care Provider Un available Black, Daxa Unavailable [phone] Reason For Referral No Information Medications Medication SIG (Take, Route, Fr equency, Duration) Notes Start Date End Date Status Lactulose 10 GM Orally Acti ve Lipitor 40 MG Orally Active Tums 1000mg Active Tivicay 50 MG Orally Active Milk of Magnesia 2400mg Active Vitamin D3 50,000 Ac tive Hemorrhoidal Active Acetaminophen 650mg Orally PM Active Zoloft 75mg Active Aspirin 81 MG Orally Active Colace 100 MG Orally Active Lisinopril 2.5 MG Orally Ac tive Lantus 40units Activ e Multivitamin Active HumaLOG 12units AM A ctive Prezcobix 800-150 MG Orally Active Accu-Chek Active Act malik Synthroid 75 MCG Orally Act malik guaiFENesin 10ML Orally Act malik Depakote 500 MG Orally Acti ve Gemfibrozil 600 MG Orally A ctive Fish Oil 500 MG Orally Acti ve Immunizations Vaccine Route Administration Date Status Comme nts Influenza Unknown 10/03/2016 Administered Social History Tobacco Use: Social History Observation Description Date Details (start date - stop date) Former Smoker NA - NA Tobacco Use/Smoking Question Answer Notes Are you a: former smoker How long has it been since you last smoked? < 1 month Additional Findings: Tobacco Non-User Current no n-smoker Alcohol Screen Question Answer Notes Did you have a drink containing alcohol in the p ast year? No Points 0 Interpretation Negative Tobacco use other than smoking: Question Answer Notes Are you an other tobacco user? No Problems Problem Type SNOMED Code ICD Code Onset Dates Problem Status W/U Status Risk Notes Problem Polyneuropathy due to type 2 diabetes mellitus (363832643) Type 2 diabetes mellitus with diabetic polyneuropathy (E11.42) Active confirmed Plan Of Treatment Pending Test Test Name Order Date [id number] NAIL, 1-5 11/17/2016 [id number] DYSTROPHIC NAILS ANY # Insurance Providers Payer Name Payer Address Payer Phone Subscriber Number Group Number Insured Name Patient Relationship to Insured Coverage Start Date Coverage End Date Medicare National [employer] [address] [place] [address] [id number] Omero Silva Self - patient is the insured Medical (General) History Medical History History ICD Code Diabetic Human immunodeficiency virus (HIV), posi tive Kidney disease Surgical History Surgery Date(Month/Year)
[2025-01-14 11:15] LABS: MANUAL DIFF FLAG NO
[2025-01-14 11:20] LABS: Hematocrit 34.9 % (42.0-52.0); Imm Gran Abs Auto 0.02 X10*3/uL (0.00-0.03); NRBC Abs Auto 0.000 X10*3/uL (0.0-0.012); NRBC Pct Auto 0.0 /100WBC (0.0-0.2); PLT CLUMP 1; SCAN SMEAR FLAG 1
[2025-01-14 11:23] LABS: Hemoglobin 12.0 g/dl (14.0-18.0); Imm Gran Pct Auto 0.4 % (0.0-0.4); Lymphocytes Absolute Auto 1.1 X10*3/uL (1.2-4.9); Mean Corpuscular HGB Conc 34.4 g/dl (31.0-36.0); Mean Corpuscular Hemoglobin 35.3 pg (27.0-33.0); Mean Corpuscular Volume 102.6 fL (80.0-98.0); Red Blood Count 3.40 X10*6/uL (4.60-5.80)
[2025-01-14 11:26] LABS: Hemoglobin A1C 132.5758 umol/L; Total Hemoglobin (HGBA1C) 3075.8324 umol/L; White Blood Count 5.7 X10*3/uL (4.8-10.8)
[2025-01-14 11:27] LABS: Platelet Count 138 X10*3/uL (160-400)
[2025-01-14 11:44] LABS: Alanine Aminotransferase 53 U/L (0-40); Anion Gap 11 (12-20); Aspartate Amino Transferase 71 U/L (5-37); Blood Urea Nitrogen 17 mg/dL (9-16); Calcium 8.9 mg/dL (8.4-10.2); Carbon Dioxide 29 mmol/L (22-29); Chloride 107 mmol/L (96-108); Cholesterol 113 mg/dL (<200); Estimated Glomerular Filt Rate 55; HDL Cholesterol 27 mg/dL (>40); Iron 25 mcg/dL (45-160); Percent Iron Saturation 13 % (15-50); Potassium 4.6 mmol/L (3.3-5.1); Sodium 142 mmol/L (135-145); Total Iron Binding Capacity 193 mcg/dL (228-428); Triglycerides 157 mg/dL (<150); Unsaturated Iron Binding 168 ug/dL
[2025-01-14 12:03] LABS: Free T4 (Free Thyroxine) 0.77 ng/dL (0.71-1.85); Thyroid Stimulating Hormone 1.83 uIU/mL (0.32-4.0)
== END 2025-01-14 09:25 | disposition home or self-care (01) ==
LOC: HO.HMGCLDS 09:24
PROVIDERS: PCP Internal Medicine; Visit Provider Internal Medicine
DX: E11.22 Type 2 diabetes mellitus with diabetic chronic kidney disease (principal); E78.5 Hyperlipidemia, unspecified; D63.1 Anemia in chronic kidney disease; E03.9 Hypothyroidism, unspecified; N18.1 Chronic kidney disease, stage 1; Z79.4 Long term (current) use of insulin
CPT/HCPCS: 36415; 80048; 80061; 83036; 83540; 84439; 84443; 84450; 84460; 85025

== ENCOUNTER 2025-01-16 08:30 | Outpatient (REF) | payer MEDICARE, MEDICAID, SELFPAY ==
--- OUTSIDE RECORDS SUMMARY | 2025-01-16 11:22 | XMS_ITS | Patient Health Record ---
Author Organization [facility] Address [address] [facility] [place] [address] Care Team Providers Care Senior Procurement Specialist Name Role Phone Annmarie SALCIDO, Nicole Jamison Primary Care Provider Un available Black, Daxa Unavailable [phone] Reason For Referral No Information Medications Medication [...] Polyneuropathy due to type 2 diabetes mellitus (390337395) Type 2 diabetes mellitus with diabetic polyneuropathy (E11.42) Active confirmed Plan Of Treatment Pending Test Test Name Order Date [id number] NAIL, 1-5 11/17/2016 [id number] DYSTROPHIC NAILS ANY # Insurance Providers Payer Name Payer Address Payer Phone Subscriber Number Group Number Insured Name Patient Relationship to Insured Coverage Start Date Coverage End Date Medicare National Govt Svcs Inc [address] [place] [address] [id number] Omero Silva Self - patient is the insured Medical (General) History Medical History History ICD Code Diabetic Human immunodeficiency virus (HIV), posi tive Kidney disease Surgical History Surgery Date(Month/Year)
--- OUTSIDE RECORDS SUMMARY | 2025-01-16 11:22 | XMS_ITS | Clinical Summary ---
Author Organization [facility] Facility Address [address] [address] Care Team Providers Care Deputy Sheriff Name Role Phone Edin Anguiano MD Primary Care Provider +1- [phone] Allergies Active Allergy Reactions Criticality Noted Date Comments Clindamycin 01/14/2021 Sulfa Antibiotics 01/14/2021 Medications sertraline (ZOLOFT) 50 MG tablet Take 1.5 tablets by mouth 1 (one) time each day Active guaiFENesin (ROBITUSSIN) 100 MG/5ML syrup as directed Active ergocalciferol 1.25 MG (92868 UT) capsule Take 1 capsule by mouth [...] Health Maintenance Due Date Last Done Comments Hepatitis B Vaccine (1 of 3 - 19+ 3-dose series) 10/24 Pneumococcal Vaccine: 50+ Years (1 of 2 - PCV) 988 Colorectal Cancer Screening: Annual FOBT 2017 Colorectal Cancer Screening: Colonoscopy 2017 Colorectal Cancer Screening: Sigmoidoscopy 2017 Diabetes: Ophthalmology Exam 07/30/2020 Diabetes: Pedal Pulse Checked 07/30/2020 Diabetes: Sensory Foot Exam 07/30/2020 Diabetes: Visual Foot Exam 07/30/2020 Diabetes: Hemoglobin A1C 10/03/2020 07/05/2020 Influenza Vaccine (#1) 2025 Procedures Procedure Name Priority Date/Time Associated Diagnosis [...] mg/dl PVNMA 07/05/2020 us Rtama Conversion LAB [id number] LICITED RESULTS Final Result PVNMA from Last 3 Months or Most Recently Relevant to Health Maintenance Insurance Medicare Medicaid [place] Medicare Medicaid [place] Care Teams Deputy Sheriff Relationship Specialty Start Date End Date Edin Anguiano MD [address] [place] [id number] PCP - General 07/09/20
[2025-01-16 14:38] LABS: Microalbum/Creatinine Ratio Ur 8.7 ug/mg cr (<30)
== END 2025-01-16 08:31 | disposition home or self-care (01) ==
LOC: HO.HMGCLNP 08:30
PROVIDERS: PCP Internal Medicine; Visit Provider Internal Medicine
DX: E11.9 Type 2 diabetes mellitus without complications (principal); E78.5 Hyperlipidemia, unspecified; Z79.4 Long term (current) use of insulin; E03.9 Hypothyroidism, unspecified; N18.1 Chronic kidney disease, stage 1; D64.9 Anemia, unspecified
CPT/HCPCS: 82043; 82570

== ENCOUNTER 2025-01-18 09:52 | Outpatient (AMB) | payer MEDICARE, MEDICAID, SELFPAY ==
--- NOTE | 2025-01-18 09:55 | A.OFFPC_ITS ---
Vital Signs 01/18/25 09:56 Height 5 ft 4 in Weight 123 lb BMI 21.1 BP 98/48 L Blood Pressure Location Lt brachial Position Sitting Respiration 16 Pulse 83 Pulse Source Pulse Oximeter Temp 98.1 F Temp Source Oral Pulse Oximetry (%) 98 Oxygen Delivery Method Room Air Intake Visit Reasons: f/u labs Intake Note: Pt is here for labs follow up. Bilingual Customer Service Specialist Required: No Accompanied by: Self / Same As Patient Allergies clindamycin (CLINDAMYCIN) Allergy (Unknown, Verified 01/18/25 10:00) UNKNOWN Sulfa (Sulfonamide Antibiotics) (SULFA (SULFONAMIDE ANTIBIOTICS)) Allergy (Unknown, Verified 01/18/25 10:00) UNKNOWN tuberculin, purified protein deriva (TB TEST) Allergy (Unknown, Verified 01/18/25 10:00) UNKNOWN Medication List - Last Reconciled 01/18/25 by Nicole Anguiano MD acetaminophen 650 mg (2 x 325 mg) PO Q6H PRN atorvastatin (Lipitor) 20 mg PO BEDTIME bethanechol chloride 25 mg PO BID 90 days vimknglrp-wpffqnri-izvibdn ala 50-200-25 mg 1 tab PO DAILY blood sugar diagnostic (Contour Next Test Strips) Check fasting blood sugar once a day every morning; calcium carbonate (Campos-Gest Antacid) 200 mg PO BID PRN divalproex ER 1,000 mg PO BEDTIME docusate sodium 100 mg PO BID PRN levothyroxine 75 mcg PO QAM metformin 500 mg PO DAILY methylcellulose (laxative) (Citrucel) 500 mg PO DAILY kkmcnncf-eqo-jfuw fum-folic ac 19 mg iron- 400 mcg (Thera-M) 1 tab PO QAM sertraline 75mg terazosin 5 mg PO BEDTIME 90 days Tobacco use date assessed: 01/18/25 Dental Screening Dental Screen Date: 04/18/24 Did you have a dental visit in the last 12 months?: Yes Did you have a dental problem in the last 6 months where you did not have access to dental care?: No Was dental information given to patient?: Patient has dentist HPI f/u labs HPI Details - The patient is a 54-year-old male here today for his follow-up - HIV infection: The patient has been on Biktarvy for HIV management followed at [facility] in the [facility] Recent labs from December showed detectable HIV RNA levels at 32, whereas previous results in May 2024 were undetectable. - Anemia: The patient was not anemic in June 2023, but recent blood work indicates anemia with hemoglobin dropping from 13.6 to 12. His serum iron level is 25, below the normal range of 45 and above, with saturation at 12%, indicating iron deficiency as a cause of anemia. - Gallbladder sludge: The patient had st ents placed and removed with sludge extraction, but no gallstones were found. The gallbladder is distended with possible inflammation. - Urinary incontinence: The patient expe riences urinary incontinence and is on terazosin for benign prostatic hyperplasia, which may contribute to symptoms. - Diabetes mellitus: The patient's diabe santo is controlled with metformin, and recent labs show stable glucose levels. - Hypertension: The patient has a histor y of hypertension, but current blood pressure readings are low, possibly due to anemia and terazosin use. - Hyperlipidemia: The patient's choleste rol levels are well-managed, though triglycerides are slightly elevated. [facility], [facility] Medical History (Updated 01/23/25 @ 02:31 by Nicole Anguiano MD) Iron deficiency anemia History of adenomatous polyp of colon AIDS dementia CKD (chronic kidney disease) stage 1, GFR 90 ml/min or greater Anemia Diverticulosis Acquired hypothyroidism Lives in [facility] COVID-19 vaccine series completed Testicular hypofunction Depression ADHD (attention deficit hyperactivity disorder) Benign prostatic hyperplasia with lower urinary tract symptoms Dyslipidemia Acquired deformity of toenail Controlled diabetes mellitus type II without complication Nephrolithiasis Surgical History No pertinent past surgical history Family History Father Unknown family medical history Mother Unknown family medical history Brother No problems noted. Sister No problems noted. Daughter No problems noted. Social History Housing: Other Housing Other:: [facility] Alcohol intake: never Patient Tobacco Use Status: Never used Tobacco e-Cigarette/Vaping Use: Never Used Advance Directives Date on File: 09/08/22 service: No Current occupational status: disabled Current occupational exposures/hazards: No Cognitive needs: No Hearing needs: No Vision needs: Yes Questionnaire PHQ-9 Over the last 2 weeks, how often have you been bothered by any of the following problems? 1. Little interest or pleasure in doing things: not at all 2. Feeling down, depressed, or hopeless: not at all 3. Trouble falling or staying asleep, or sleeping too much: not at all 4. Feeling tired or having little energy: not at all 5. Poor appetite or overeating: not at all 6. Feeling bad about yourself - or that you are a failure or have let yourself or your family down: not at all 7. Trouble concentrating on things, such as reading the newspaper or watching television: not at all 8. Moving or speaking so slowly that other people could have noticed. Or the opposite - being so fidgety or restless that you have been moving around a lot more than usual: not at all 9. Thoughts that you would be better off or of hurting yourself in some way: not at all Total score: 0 Depression Screening Interpretation: Negative (Has depression, and ADHD, stable and controlled on present treatment, sees Dr. Bryon Isidro) Depression Screening Done: Yes 11587 - PHQ-9 Billing: Yes Source: Developed by Drs. Paulie Holden, Tonia Lerma, Malvin Bennett and colleagues, with an educational gisela from [employer]. Thrive Questionnaire Date Thrive assessed: 10/15/23 I am a: Patient What is your living situation today?: I have a steady place to live Within the past 12 months, did the food you bought not last and you didn't have the money to get more?: Never true Within the past 12 months, did you worry whether your food would run out before you got money to buy more?: Never true Do you have trouble paying for medicines?: No Do you have trouble getting transportation to medical appointments?: No Do you have trouble paying your heating and electricity bill?: No Do you have trouble taking care of your child, family member or friend?: No Do you have trouble with day-to-day activities such as bathing, preparing meals, shopping, managing finances, etc.?: Yes Are you currently unemployed and looking for a job?: No Are you interested in more education?: No Please select the resources that you would like help with: None Currently or been in a relationship where the following occur: No concerns reported THRIVE Score: 0 Review of Systems Const Reports no additional complaints and Denies headache(s) Eyes Details: Sees [facility] ophthalmology Denies change in vision ENT Denies dizziness, Denies headache(s), Denies mouth lesions, Denies nasal discharge and Reports disequilibrium Card Denies chest pain, Denies chest pain with activity, Denies syncope, Denies rapid heart rate, Denies irregular heart rhythm, Denies lightheadedness and Denies dyspnea Resp Reports no additional complaints, Denies dyspnea and Denies wheezing GI Reports no additional complaints Reports as per HPI Musc Reports no additional complaints and Reports abnormal gait Skin/Breast Denies lesions and Denies rash Neuro Reports abnormal gait, Denies dizziness, Denies syncope, Denies headache(s) and Reports disequilibrium Psych Reports as per HPI Endo Reports no additional complaints Joe/Lymph Denies easy bruising Aller/Immun Denies seasonal rhinorrhea and Denies wheezing Physical exam (Primary Care) Vital Signs: Last Vital Signs Temp 98.1 F 01/18/25 09:56 Pulse 83 01/18/25 09:56 Resp 16 01/18/25 09:56 BP 98/48 L 01/18/25 09:56 Pulse Ox 98 01/18/25 09:56 Oxygen Delivery Method Room Air 01/18/25 09:56 BMI result Body Mass Index 21.1 Tobacco/Smoking Status: Tobacco use Status Tobacco use date assessed 01/18/25 01/18/25 10:10 Patient Tobacco Use Status Never used Tobacco 01/18/25 10:10 e-Cigarette/Vaping Use Never Used 01/18/25 10:10 PHQ-9: PHQ-9 Score PHQ-9: Total score 0 01/18/25 10:40 Depression Screening Interpretation: Negative (Has depression, and ADHD, stable and controlled on present treatment, sees Dr. Bryon Isidro) Thrive Assessment: Date of Thrive Assessment Date Thrive assessed 10/15/23 01/18/25 10:10 Currently or been in a relationship where the following occur: No concerns reported Const Other: Alert oriented x3, no acute distress noted ambulatory with assistance Orientation/consciousness: patient oriented x3 HENMT Head: Yes normocephalic Ears: external ears normal General nose exam: Normal external nose present and Normal nares present Face and sinus: Yes face symmetric Mouth: Normal oral and palatal mucosa present and moist mucous membranes Neck Neck: Yes full ROM, Yes no lymphadenopathy and Yes supple Resp Auscultation: clear to auscultation bilaterally Cardio Rate: regular rate Rhythm: regular rhythm Heart sounds: S1 normal heart sound present and S2 normal heart sound present GI Palpation (GI): Soft to palpation, nontender, no guarding and no masses Auscultation: normal bowel sounds General: Yes no CVA tenderness Back/Spine/Pelvis Back: no CVA tenderness and No back tenderness Skin General skin exam: no rashes or lesions noted Neuro General: patient oriented x3, moves all extremities, Normal light touch and pain sensation, no focal motor deficits and CN's II-XI intact bilaterally Gait exam (Neuro): Assisted gait required Extrem General: Yes full ROM, Yes no joint enlargement, Yes no clubbing, cyanosis or edema and Yes no calf tenderness Results Reviewed Results Reviewed: Name: Omero Silva Age/Sex: 54/M : 1970 Unit#: [id number] Attend Dr: Nicole Anguiano MD Re01/14/25 Status: DEP REF Location: [facility] Disch: SPEC : [id number] SANTOS: 01/14/25 STATUS: COMP REQ : [id number] RECD: 01/14/[address]: Nicole Anguiano MD COMP: 01/14/25 ENTERED: 01/14/25 [facility] DR: ORDERED: CBC Auto Diff Test Result Flag Reference WBC 5.7 4.8-10.8 X10*3/uL RBC 3.40 L 4.60-5.80 X10*6/uL HGB 12.0 L 14.0-18.0 g/dl HCT 34.9 L 42.0-52.0 % MCV 102.6 H 80.0-98.0 fL MCH 35.3 H 27.0-33.0 pg MCHC 34.4 31.0-36.0 g/dl RDW 13.3 11.0-16.0 % PLT 138 L 160-400 X10*3/uL MPV 10.8 9.4-12.4 fL Neut Pct Auto 66.8 45-73 % ImGran Pct Auto 0.4 0.0-0.4 % Lymp Pct Auto 18.7 L 20-40 % Union Pct Auto 13.4 H 2-11 % Eos Pct Auto 0.5 0-4 % Baso Pct Auto 0.2 0-2 % NRBC Pct Auto 0.0 0.0-0.2 /100WBC ANC Neut Abs # 3.8 2.0-8.3 x10*3/uL ImGran Abs Auto 0.02 0.00-0.03 X10*3/uL Lymph Abs Auto 1.1 L 1.2-4.9 X10*3/uL Union Abs Auto 0.8 0.1-1.2 X10*3/uL Eos Abs Auto 0.0 0.0-0.4 X10*3/uL Baso Abs Auto 0.0 0.0-0.2 X10*3/uL NRBC Abs Auto 0.000 0.0-0.012 X10*3/uL Name: Omero Silva Age/Sex: 54/M : 1970 Unit#: [id number] Attend Dr: Nicole Anguiano MD Re01/14/25 Status: DEP REF Location: [facility] Disch: SPEC : [id number] SANTOS: 01/14/25 STATUS: COMP REQ : [id number] RECD: 01/14/25-[address]: Nicole Anguiano MD COMP: 01/14/25-1203 ENTERED: 01/14/25-[address]: ORDERED: Met Prof Fast, IRON PROF, AST, ALT, Lipid Panel, Free T4, TSH Test Result Flag Reference Sodium 142 135-145 mmol/L Potassium 4.6 3.3-5.1 mmol/L CL 107 96-108 mmol/L CO2 29 22-29 mmol/L Gap 11 L 12-20 BUN 17 H 9-16 mg/dL Creat 1.35 0.5-1.4 mg/dL eGFR 55 Chronic Kidney Disease: Estimated GFR < 60 mL/min/1.73m2 Severe Kidney Disease: Estimated GFR < 15 mL/min/1.73m2 FBS 118 H 60-99 mg/dL A fasting glucose from 100-125 mg/dl is considered impaired (pre-diabetes). CA 8.9 8.4-10.2 mg/dL Iron 25 L 45-160 mcg/dL TIBC 193 L 228-428 mcg/dL Saturation 13 L 15-50 % UIBC 168 ug/dL AST (GOT) 71 H 5-37 U/L ALT (GPT) 53 H 0-40 U/L Triglyceride 157 H <150 mg/dL Desirable Triglyceride: less than 150 mg/dL Borderline High Triglyceride 150-199 mg/dL High Triglyceride: 200-499 mg/dL Very High Triglyceride: greater than or equal to 5OO mg/dL Cholesterol 113 <200 mg/dL Desirable Cholesterol: less than 200 mg/dL Borderline High Cholesterol: 200-239 mg/dL High Cholesterol: greater than 239 mg/dL LDL Calculated 55 <100 mg/dL Desirable LDL: less than 100 mg/dL Near Optimal/Above Optimal LDL: 110-129 mg/dL Borderline High LDL: 130-159 mg/dL High LDL: 160-189 mg/dL Very High LDL: greater than or equal to 190 mg/dL HDL 27 L >40 mg/dL Desirable HDL: greater than 40 mg/dL Note: This HDL assay may give artificially low results in patients with liver disease. Free T4 0.77 0.71-1.85 ng/dL TSH 3rd Gen. 1.83 0.32-4.0 uIU/mL TSH 3rd Generation ([facility]) Laboratory Tests 01/14/25 01/16/25 10:05 08:30 Estimat Average Glucose 128 Hemoglobin A1c % 6.1 H Urine Creatinine 137.54 Urine Microalbumin 12.0 Microalb/Creat Ratio 8.7 Coding Level of Care Code Est Pt Level 4 (84734) Diagnoses Iron deficiency anemia, unspecified iron deficiency anemia type D50.9 Iron deficiency anemia type: unspecified iron deficiency Additional Codes PHQ-9 - 53943 - PHQ-9 Billing: Yes ([id number]) Assessment & Plan Assessment & Plan (1) Iron deficiency anemia: Code(s): D50.9 - Iron deficiency anemia, unspecified Category: Medical Qualifiers: Iron deficiency anemia type: unspecified iron deficiency Qualified Code(s): D50.9 - Iron deficiency anemia, unspecified Plan The patient will continue on Biktarvy for HIV management, with follow-up labs to monitor viral load. Iron supplements will be initiated to address iron deficiency anemia, with a recommendation to increase dietary intake of iron-rich foods. The patient is advised to avoid fatty foods to prevent gallbladder pain and will be scheduled for gallbladder removal surgery. Terazosin will be continued for benign prostatic hyperplasia, and the patient is advised to discuss problems with the his urinary incontinence with his urologist on his next visit. Blood pressure will be monitored, and the patient is encouraged to maintain hydration to prevent dizziness. Follow-up in three months with fasting labs is planned to reassess anemia, diabetes, and lipid levels. Patient was informed and verbally consented to the use of an ambient scribe for clinic note documentation during this visit. Medications: New ferrous sulfate 325 mg PO DAILY 90 tabs 1RF D50.9 - Iron deficiency anemia, unspecified Discontinued docusate sodium Discontinued Reason: Doctor's Order 100 mg PO BID PRN 60 caps 5RF constipation
[2025-01-18 09:56] VITALS: BP 98/48; PULSE 83; RESP 16; TEMP 36.7; O2SAT 98; BMI 21.1
--- OUTSIDE RECORDS SUMMARY | 2025-01-18 10:34 | XMS_ITS | Clinical Summary ---
Author Organization [facility] Facility Address [address] [address] Care Team Providers Care Director Mba Name Role Phone Edin Anguiano MD Primary Care Provider +1- [phone] Allergies Active Allergy Reactions Criticality Noted Date Comments Clindamycin 01/14/2021 Sulfa Antibiotics 01/14/2021 Medications sertraline (ZOLOFT) 50 MG tablet Take 1.5 tablets by mouth 1 (one) time each day Active guaiFENesin (ROBITUSSIN) 100 MG/5ML syrup as directed Active ergocalciferol 1.25 MG (58362 UT) capsule Take 1 capsule by mouth [...] mg/dl PVNMA 07/05/2020 us Rtama Conversion LAB [id number] LICITED RESULTS Final Result PVNMA from Last 3 Months or Most Recently Relevant to Health Maintenance Insurance Medicare Medicaid [place] Medicare [place] Care Teams Director Mba Relationship Specialty Start Date End Date Edin Anguiano MD [address] [place] [id number] PCP - General 07/09/20
--- OUTSIDE RECORDS SUMMARY | 2025-01-18 10:34 | XMS_ITS | Patient Health Record ---
[facility] Address [address] [place] [address] Care Team Providers Care Industrial Maintenance Mechanic Name Role Phone Annmarie SALCIDO, Nicole Jamison Primary Care Provider Un available Black, Daxa Unavailable [phone] Reason For Referral No Information Medications Medication [...] Polyneuropathy due to type 2 diabetes mellitus (685380344) Type 2 diabetes mellitus with diabetic polyneuropathy (E11.42) Active confirmed Plan Of Treatment Pending Test Test Name Order Date [id number] NAIL, 1-5 11/17/2016 [id number] DYSTROPHIC NAILS ANY # Insurance Providers Payer Name Payer Address Payer Phone Subscriber Number Group Number Insured Name Patient Relationship to Insured Coverage Start Date Coverage End Date Medicare National Govt Svcs Inc [address] [place] [address] [id number] Omero Silva Self - patient is the insured Medical (General) History Medical History History ICD Code Diabetic Human immunodeficiency virus (HIV), posi tive Kidney disease Surgical History Surgery Date(Month/Year)
== END 2025-01-18 10:48 | disposition home or self-care (01) ==
LOC: HO.HMCC 09:52
PROVIDERS: PCP Internal Medicine; Visit Provider Internal Medicine
DX: D50.9 Iron deficiency anemia, unspecified (principal)

== ENCOUNTER → 2025-01-18 09:52 | Outpatient (BNVA) | payer MEDICARE, MEDICAID, SELFPAY | PROVIDERS: PCP Internal Medicine; Visit Provider Internal Medicine | DX: D50.9 Iron deficiency anemia, unspecified (principal) | CPT/HCPCS: 96127; 99212 ==

== ENCOUNTER 2025-01-24 14:39 | Outpatient (REF) | payer MEDICARE, MEDICAID, SELFPAY ==
[2025-01-24 18:00] LABS: Prostate Specific Antigen 2.93 ng/mL (<0.05-4.0)
== END 2025-01-24 14:40 | disposition home or self-care (01) ==
LOC: HO.LAB 14:39
PROVIDERS: PCP Internal Medicine; Visit Provider Urology
DX: N40.1 Benign prostatic hyperplasia with lower urinary tract symptoms (principal); Z12.5 Encounter for screening for malignant neoplasm of prostate
CPT/HCPCS: 36415; 84153

== ENCOUNTER 2025-03-09 08:39 | Outpatient (REF) | payer MEDICARE, MEDICAID, SELFPAY ==
--- OUTSIDE RECORDS SUMMARY | 2025-03-09 09:43 | XMS_ITS | Patient Health Record ---
Author Organization [facility] Address [address] [facility] [place] [address] Care Team Providers Care Pilling Machine Operator Name Role Phone Annmarie SALCIDO, Nicole Jamison Primary Care Provider Un available Black, Daxa Unavailable [phone] Reason For Referral No Information Medications Medication [...] Polyneuropathy due to type 2 diabetes mellitus (608636344) Type 2 diabetes mellitus with diabetic polyneuropathy (E11.42) Active confirmed Plan Of Treatment Pending Test Test Name Order Date [id number] NAIL, 1-5 11/17/2016 [id number] DYSTROPHIC NAILS ANY # Insurance Providers Payer Name Payer Address Payer Phone Subscriber Number Group Number Insured Name Patient Relationship to Insured Coverage Start Date Coverage End Date Medicare National Govt Svcs Inc [address] [place] [address] [id number] Omero Silva Self - patient is the insured Medical (General) History Medical History History ICD Code Diabetic Human immunodeficiency virus (HIV), posi tive Kidney disease Surgical History Surgery Date(Month/Year)
--- OUTSIDE RECORDS SUMMARY | 2025-03-09 09:43 | XMS_ITS | Clinical Summary ---
Author Organization [facility] Facility Address [address] [address] Care Team Providers Care Preconstruction Manager Name Role Phone Edin Anguiano MD Primary Care Provider +1- [phone] Allergies Active Allergy Reactions Criticality Noted Date Comments Clindamycin 01/14/2021 Sulfa Antibiotics 01/14/2021 Medications sertraline (ZOLOFT) 50 MG tablet Take 1.5 tablets by mouth 1 (one) time each day Active guaiFENesin (ROBITUSSIN) 100 MG/5ML syrup as directed Active ergocalciferol 1.25 MG (95058 UT) capsule Take 1 capsule by mouth [...] mg/dl PVNMA 07/05/2020 us Rtama Conversion LAB [id number] LICITED RESULTS Final Result PVNMA from Last 3 Months or Most Recently Relevant to Health Maintenance Insurance Medicare Medicaid [place] Medicare [place] Care Teams Preconstruction Manager Relationship Specialty Start Date End Date Edin Anguiano MD [address] [place] [id number] PCP - General 07/09/20
[2025-03-09 11:56] LABS: Prostate Specific Antigen 3.42 ng/mL (<0.05-4.0)
== END 2025-03-09 08:40 | disposition home or self-care (01) ==
LOC: HO.HMGCLDS 08:39
PROVIDERS: PCP Internal Medicine; Visit Provider Urology
DX: Z12.5 Encounter for screening for malignant neoplasm of prostate (principal); N40.1 Benign prostatic hyperplasia with lower urinary tract symptoms
CPT/HCPCS: 36415; 84153

== ENCOUNTER → 2025-04-04 08:52 | Outpatient (BNV) | payer MEDICARE, MEDICAID, SELFPAY | PROVIDERS: Emergency Provider Emergency Medicine; PCP Internal Medicine; Visit Provider Radiology Diagnostic Radiology | DX: Z04.3 Encounter for examination and observation following other accident (principal); S09.90XA Unspecified injury of head, initial encounter; M54.50 Low back pain, unspecified; M54.6 Pain in thoracic spine; W19.XXXA Unspecified fall, initial encounter | CPT/HCPCS: 70450; 72072; 72100; 72125 ==

== ENCOUNTER 2025-04-13 08:51 | Outpatient (REF) | payer MEDICARE, MEDICAID, SELFPAY ==
--- OUTSIDE RECORDS SUMMARY | 2025-04-13 09:44 | XMS_ITS | Patient Health Record ---
Author Organization [facility] Address [address] [facility] [address] [place] [address] Care Team Providers Care Computer Forwarding System Markup Clerk Name Role Phone Annmarie SALCIDO, Nicole Jamison Primary Care Provider Un available Black, Daxa Unavailable [phone] Reason For Referral No Information Medications Medication [...] Polyneuropathy due to type 2 diabetes mellitus (603232415) Type 2 diabetes mellitus with diabetic polyneuropathy (E11.42) Active confirmed Plan Of Treatment Pending Test Test Name Order Date [id number] NAIL, 1-5 11/17/2016 [id number] DYSTROPHIC NAILS ANY # Insurance Providers Payer Name Payer Address Payer Phone Subscriber Number Group Number Insured Name Patient Relationship to Insured Coverage Start Date Coverage End Date Medicare National Govt Svcs Inc [address] [place] [address] [id number] Omero Silva Self - patient is the insured Medical (General) History Medical History History ICD Code Diabetic Human immunodeficiency virus (HIV), posi tive Kidney disease Surgical History Surgery Date(Month/Year)
[2025-04-13 11:21] LABS: Alanine Aminotransferase 19 U/L (0-40); Anion Gap 9 (12-20); Aspartate Amino Transferase 28 U/L (5-37); Blood Urea Nitrogen 17 mg/dL (9-16); Calcium 8.7 mg/dL (8.4-10.2); Carbon Dioxide 29 mmol/L (22-29); Chloride 111 mmol/L (96-108); Cholesterol 104 mg/dL (<200); Estimated Glomerular Filt Rate > 60; HDL Cholesterol 31 mg/dL (>40); Potassium 4.3 mmol/L (3.3-5.1); Sodium 145 mmol/L (135-145); Triglycerides 116 mg/dL (<150)
[2025-04-13 11:40] LABS: Free T4 (Free Thyroxine) 0.77 ng/dL (0.71-1.85); Thyroid Stimulating Hormone 1.38 uIU/mL (0.32-4.0)
[2025-04-13 14:32] LABS: Microalbum/Creatinine Ratio Ur 59.0 ug/mg cr (<30)
== END 2025-04-13 08:52 | disposition home or self-care (01) ==
LOC: HO.HMGCLDS 08:51
PROVIDERS: PCP Internal Medicine; Visit Provider Internal Medicine
DX: E11.22 Type 2 diabetes mellitus with diabetic chronic kidney disease (principal); N18.1 Chronic kidney disease, stage 1; E78.5 Hyperlipidemia, unspecified; E03.9 Hypothyroidism, unspecified; Z79.4 Long term (current) use of insulin; Z13.29 Encounter for screening for other suspected endocrine disorder; Z13.6 Encounter for screening for cardiovascular disorders
CPT/HCPCS: 36415; 80048; 80061; 82043; 82570; 83036; 84439; 84443; 84450; 84460

== ENCOUNTER 2025-04-18 09:14 | Outpatient (AMB) | payer MEDICARE, MEDICAID, SELFPAY ==
--- NOTE | 2025-04-18 09:18 | A.OFFVIS_ITS ---
Intake Visit Reasons: 6M FOLLOW UP Intake Note: Patient is Present for 6m Follow Up Urology Medication:bethanechol, Terazosin Blood Thinners: Aspirin PVR: 0mls Soap Tender Required: No Accompanied by: Other Relationship Allergies clindamycin (CLINDAMYCIN) Allergy (Unknown, Verified 04/18/25 09:20) UNKNOWN Sulfa (Sulfonamide Antibiotics) (SULFA (SULFONAMIDE ANTIBIOTICS)) Allergy (Unknown, Verified 04/18/25 09:20) UNKNOWN tuberculin, purified protein deriva (TB TEST) Allergy (Unknown, Verified 04/18/25 09:20) UNKNOWN HPI Comments Details: Orlando is a pleasant male. He is a resident of a care facility. He is a patient of Dr. Anguiano. 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 b.i.d. PSA 09/18 0.4 limited fluids after 20:00, sit to void Renal cyst Renal cyst 1 cm right upper pole Imaging - 01/17 CT scan 1 cm right upper cyst pole, no stones Lower Urinary Tract Symptoms: stable imaging. Current visit is for further evaluation of, lower urinary tract symptoms, predominate obstructive symptoms. Current treatment includes medication, alpha samuel, 5-AR. Prostate Symptom Score Moderate (9-19), Bother 3 05/17 , Mild (0-8), Bother 2. Symptoms include incomplete emptying, weak stream, nocturia (>2), and are progressing. Results from testing include cystoscopy no abnormality seen 05/17 Prostate volume < 30 gm. imaging - 12/17 renal ultrasound 9 mm cyst on right, 3 mm stone on left Associated conditions - HIV, diabetes, prior head injury Testing at next visit will include bladder scan [facility] Medical History Iron deficiency anemia History of adenomatous polyp of colon AIDS dementia CKD (chronic kidney disease) stage 1, GFR 90 ml/min or greater Anemia Diverticulosis Acquired hypothyroidism Lives in long-term COVID-19 vaccine series completed Testicular hypofunction Depression ADHD (attention deficit hyperactivity disorder) Benign prostatic hyperplasia with lower urinary tract symptoms Dyslipidemia Acquired deformity of toenail Controlled diabetes mellitus type II without complication Nephrolithiasis Surgical History No pertinent past surgical history Family History Father Unknown family medical history Mother Unknown family medical history Brother No problems noted. Sister No problems noted. Daughter No problems noted. Social History Housing: Other Housing Other:: longterm Alcohol intake: never Patient Tobacco Use Status: Never used Tobacco e-Cigarette/Vaping Use: Never Used Advance Directives Date on File: 09/08/22 service: No Current occupational status: disabled Current occupational exposures/hazards: No Cognitive needs: No Hearing needs: No Vision needs: Yes Review of Systems Const Denies chills and Denies fever(s) Card Reports no additional complaints and Denies syncope Resp Denies cough GI Denies abdominal pain and Denies heartburn Reports as per HPI and Denies change in libido Neuro Denies syncope Psych Denies change in libido Endo Denies change in libido Physical Exam Const General: cooperative, healthy appearing, comfortable and no acute distress Orientation/consciousness: patient oriented x3 HEENT Face and sinus: Yes normal facial exam Mouth: moist mucous membranes Neck Neck: Yes normal visual inspection, Yes full ROM and Yes trachea midline Chest Chest palpation & inspection: normal inspection of the chest Resp Effort & Inspection: normal respiratory effort, able to speak in complete sentences and no respiratory distress GI Inspection: Yes normal to inspection Back/Spine/Pelvis Cervical Spine: normal cervical lordosis Thoracic/Lumbar Spine: thoracic and lumbar spine normal to inspection Skin General skin exam: no rashes or lesions noted Neuro General: patient oriented x3, gait normal, tone normal and moves all extremities Extrem General: Yes normal to inspection and Yes capillary refill normal Assessment & Plan Assessment & Plan (1) Nephrolithiasis: Comment: Followed by Dr. Sandoval Code(s): N20.0 - Calculus of kidney Category: Medical (2) Benign prostatic hyperplasia with lower urinary tract symptoms: Comment: Followed by Dr. Sandoval Code(s): N40.1 - Benign prostatic hyperplasia with lower urinary tract symptoms Category: Medical Plan Six-month follow-up Patient Instructions: This note is constructed using voice recognition software. While every effort has been made to ensure accuracy scroll shear operator errors may have been included. Imaging studies, laboratory and physical exam results were discussed and reviewed in detail. No major barriers to patient understanding were identified. An opportunity to ask questions regarding the treatment plan was provided. All questions were answered. The patient expressed understanding and agreement with the above treatment plan. The patient is aware they should contact our office by phone for worsening of their current condition or the appearance of new urologic symptoms. Compliance is encouraged with any medications and followup testing that is ordered. It is a privilege to participate in the urologic care of your patient. If you have any questions or concerns regarding treatment for the above conditions, or other urologic issues, please do not hesitate to contact me. The office telephone contact is [phone]. Sincerely, Dr Fox Sandoval MD, [facility] - Urology Compassionate Specialist Care for the Genitourinary System Coding Level of Care Code Est Pt Level 3 (32533) Complex EM visit Add On G2211 Diagnoses Nephrolithiasis N20.0 Benign prostatic hyperplasia with lower urinary tract symptoms N40.1
--- OUTSIDE RECORDS SUMMARY | 2025-04-18 10:10 | XMS_ITS | Data Portability ---
Author Organization [place] [facility], [facility] Address [address] [place] [address] Care Team Providers Care Talent Acquisition Manager Name Role Phone [email or web address] Primary Care Provider Assessment Encounter Date Assessment [...] PVIX. Time On Scene with Patient: 00:37:50 pierce Not available 07/30/2018 10:29:59 Plan of Treatment Reminders Order Date Submit Date Provider Last Modified By Organization Details Last Modified Time Details Appointments None recorded. Lab urinalysi s, dipstick 2018 019 [email or web address] [facility], [address] [place], [address], 9 10:29:21 culture, urine - Collected by [facility] 2018 019 RICKEY [facility] (Centralized Electronic Ordering - All Locations), Patient Can Go To The Location Of Their Choice, [id number] 9 11:37:08 Referral None recorded. Procedures None recorded. Surgeries None recorded. Imaging None recorded. Medication Orders cephalexi n 500 mg capsule 2018 019 [email or web address] Not available 9 09:33:41 K[address] [facility]- , [address], [place], [id number], 9 09:44:51 Patient TargetsNo targets recorded. Patient Instructions Encounter Date Encounter Id Patient Instructions Last Modified By Organization Details Last Modified Time 07/30/2018 [id number] URINARY TRACT INFECTION INSTRUCTIONS BASIC INFORMATION Urinary tract infections(UTI) can involve any portion of the urinary tract. The most common presentation is a bladder infection/cystitis , which usually presents with urinary frequency, burning with urination, urgency, foul smelling cloudy urine and occasionally blood. Kidney infections are less frequent, but more serious, and present with fever, flank pain, malaise and sometimes shaking chills. UTI s are common in women because of the female anatomy, and much less common in males. INSTRUCTIONS Drink plenty of fluid, water is best. Drinking fluids will help to flush the bacteria from your body. Urinate every 2-3 hours Wear cotton underwear and avoid Nylon, Spandex and Lycra which tend to trap moisture and thong underwear which may facilitate UTI s . Avoid tub baths Avoid using [...] condition between 8am-10pm, please call [facility] at [phone] to help navigate your care. Not available 07/30/2018 09:40:31 Reason for Referral None Reported. Results Created Date Observation Date Name Description Value Unit Range Abnormal Flag Note LastModifiedBy Organization Detail LastModifiedTime 07/30/1907/30/2018 urina lysis , dipst ick Appearance cloudy Not Available Spr - [facility] [address], [place], [address], 07/30/2018 09:40:32 07/30/1907/30/2018 urina lysis , dipst ick Color yellow /straw Not Available Spr - [place] [address], [place], [address], 07/30/2018 09:40:32 07/30/19 19 07/30/2018 urina lysis , dipst ick Glucose negati ve Not Available Spr - Home [address] [place], [address], 07/30/2018 09:40:32 07/30/1907/30/2018 urina lysis , dipst ick Bilirubin negati ve Not Available Spr - Home [address] [place], [address], 07/30/2018 09:40:32 07/30/1907/30/2018 urina lysis , dipst ick Ketones NEG Not Available Spr - Home [address] [place], [address], 07/30/2018 09:40:32 07/30/1907/30/2018 urina lysis , dipst ick Sp. [place] 1.005 Not Available Spr - Home [address] [place], [address], 07/30/2018 09:40:32 07/30/1907/30/2018 urina lysis , dipst ick Blood ++ Not Available Spr - Home [address] [place], [address], 07/30/2018 09:40:32 07/30/1907/30/2018 urina lysis , dipst ick pH 6 Not Available Spr - Home [address] [place], [address], 07/30/2018 09:40:32 07/30/1907/30/2018 urina lysis , dipst ick Protein negati ve Not Available Spr - Home [address] [place], [address], 07/30/2018 09:40:32 07/30/1907/30/2018 urina lysis , dipst ick Urobilirubin negati ve Not Available Spr - Home [address] [place], [address], 07/30/2018 09:40:32 07/30/1907/30/2018 urina lysis , dipst ick Nitrites ++ Not Available Spr - [place] [address], [place], [address], 07/30/2018 09:40:32 07/30/1907/30/2018 urina lysis , dipst ick Leukocytes +++ Not Available Spr - H [facility]me [address], [place], [address], 07/30/2018 09:40:32 07/30/1907/30/2018 cultu re, urine specimen description URINE Not Available [facility] ([facility] Ordering - All Locations) Patient Can Go To The Location Of Their Choice, [id number] 08/01/2018 11:37:08 07/30/1907/30/2018 cultu re, urine special requests NONE Not Available [facility] (Centralized [facility] Ordering - All Locations) Patient Can Go To The Location Of Their Choice, 08/01/2018 11:37:08 07/30/1908/01/2018 cultu re, urine culture >100,0 00 COL/ML ESCHER ICHIA COLI abnormal Not Available [facility] (Centralized Electronic Ordering - All Locations) Patient Can Go To The Location Of Their Choice, [id number] 08/01/2018 11:37:08 07/30/1908/01/2018 cultu re, urine report status FINAL 2018 Not Available [facility] (Centralized Electronic Ordering - All Locations) Patient Can Go To The Location Of Their Choice, 08/01/2018 11:37:08 07/30/1908/01/2018 cultu re, urine organism ORGANI SM >100,0 00 COL/ML ESCHER ICHIA COLI Not Available [facility] (Centralized Electronic Ordering - All Locations) Patient Can Go To The Location Of Their Choice, 08/01/2018 11:37:08 07/30/1908/01/2018 cultu re, urine method METHOD MIN. INHIB. CONC. (MCG/M L) Not Available [facility] (Centralized Electronic Ordering - All Locations) Patient Can Go To The Location Of Their Choice, 08/01/2018 11:37:08 07/30/1908/01/2018 cultu re, urine ampicillin AMPICI LLIN RESIST ANT resistant Not Available [facility] (Centralized Electronic Ordering - All Locations) Patient Can Go To The Location Of Their Choice, 08/01/2018 11:37:08 07/30/1908/01/2018 cultu re, urine ampicillin/s ulbactam AMPICI LLIN/S ULBACT AM INTERM EDIATE intermedi ate Not Available [facility] (Centralized Electronic Ordering - All Locations) Patient Can Go To The Location Of Their Choice, 08/01/2018 11:37:08 07/30/1908/01/2018 cultu re, urine amoxicillin/ clavulanic acid AMOXIC ILLIN/ CLAVUL AN SUSCEP TIBLE susceptib le Not Available [facility] (Centralized Electronic Ordering - All Locations) Patient Can Go To The Location Of Their Choice, 08/01/2018 11:37:08 07/30/1908/01/2018 cultu re, urine cefazolin CEFAZO KALIN SUSCEP TIBLE susceptib le Not Available [facility] (Centralized Electronic Ordering - All Locations) Patient Can Go To The Location Of Their Choice, 08/01/2018 11:37:08 07/30/1908/01/2018 cultu re, urine cefepime CEFEPI ME SUSCEP TIBLE susceptib le Not Available [facility] (Centralized Electronic Ordering - All Locations) Patient Can Go To The Location Of Their Choice, 08/01/2018 11:37:08 07/30/1908/01/2018 cultu re, urine ceftriaxone CEFTRI AXONE SUSCEP TIBLE susceptib le Not Available [facility] (Centralized Electronic Ordering - All Locations) Patient Can Go To The Location Of Their Choice, 08/01/2018 11:37:08 07/30/1908/01/2018 cultu re, urine ciprofloxaci n CIPROF LOXACI N RESIST ANT resistant Not Available [facility] (Centralized Electronic Ordering - All Locations) Patient Can Go To The Location Of Their Choice, 08/01/2018 11:37:08 07/30/1908/01/2018 cultu re, urine gentamicin GENTAM ICIN SUSCEP TIBLE susceptib le Not Available [facility] (Centralized Electronic Ordering - All Locations) Patient Can Go To The Location Of Their Choice, 08/01/2018 11:37:08 07/30/1908/01/2018 cultu re, urine levofloxacin LEVOFL OXACIN RESIST ANT resistant Not Available [facility] (Centralized Electronic Ordering - All Locations) Patient Can Go To The Location Of Their Choice, 08/01/2018 11:37:08 07/30/1908/01/2018 cultu re, urine meropenem MEROPE NEM SUSCEP TIBLE susceptib le Not Available [facility] (Centralized Electronic Ordering - All Locations) Patient Can Go To The Location Of Their Choice, 08/01/2018 11:37:08 07/30/1908/01/2018 cultu re, urine nitrofuranto in NITROF URANTO IN SUSCEP TIBLE susceptib le Not Available [facility] (Centralized Electronic Ordering - All Locations) Patient Can Go To The Location Of Their Choice, 08/01/2018 11:37:08 07/30/1908/01/2018 cultu re, urine piperacillin /tazobactam PIPERA CILLIN /TAZOB AC SUSCEP TIBLE susceptib le Not Available [facility] (Centralized Electronic Ordering - All Locations) Patient Can Go To The Location Of Their Choice, 08/01/2018 11:37:08 07/30/1908/01/2018 cultu re, urine trimeth/sulf amethox TRIMET H/SULF AMETHO X SUSCEP TIBLE susceptib le Not Available [facility] (Centralized Electronic Ordering - All Locations) Patient Can Go To The Location Of Their Choice, [id number] 08/01/2018 11:37:08 07/30/1908/01/2018 cultu re, urine tetracycline TETRAC YCLINE SUSCEP TIBLE susceptib le Not Available [facility] (Centralized Electronic Ordering - All Locations) Patient Can Go To The Location Of Their Choice, [id number] 08/01/2018 11:37:08 Result Notes None recorded. Medical Equipment None Reported. Allergies Allergen ID Allergen Name Allergen Category Reaction Reaction Severity Criticality Documentation Date Start Date Code Code System Note Provider Name and Address Organization Details Recorded Time 57033 clindamyc in Not available Not available Not available Not available 07/30/2018 2582 RxNorm ANGLE AMADOR NP [address], [place], [address], [place] [facility] 9 09:34:06 [id number] Substance with sulfonami de structure and antibacte rial mechanism of action (substanc e) medicatio n Not available Not available Not available 07/30/2018 24201 8003 SNOMED ANGEL AMADOR, TERRELL [address] [place], [address], [place] [facility] 9 09:34:19 Medications Name Sig Start Date [...] blood by Pulse oximetry Respiratory rate Systolic And Diastolic Provider Name and Address Organization Details Last Updated DateTime 9 62 /min 97.2 [degF] 98 % 98 % 16 /min 116/84 mm[Hg] Not Available [facility] 9 09:39:00 Social History Question Answer Notes LastModified by Organizat ion Details LastModified Time Tobacco Smoking Status Never Smoker ANGEL AMADOR, TERRELL [address], [place], [address], [place] [facility] 07/30/2018 09:34:44 Do You Have An Advance Directive? Yes [facility] Information not available 07/30/2018 What Is Your Code Status? Full Code [facility] Information not available 07/30/2018 Within The Past [...] Feel Unsteady When Standing Or Walking? Yes [email or web address] Information not available 07/30/2018 What Was The [...] available 06/2018 09:34:33 Medical History Condition Response Coronary Artery Disease N Depression N COPD N Cancer N Kidney Disease Y Diabetes Y Asthma N Hypertension Y Past Encounters Encounter ID Performer Location Encounter Start Date Encounter Closed Date Diagnosis/Indication Diagnosis SNOMED-CT Code Diagnosis ICD10 Code Diagnosis IMO Codes Diagnosis Note [id number] ANGEL AMADOR NP [facility] - [address] [address] 07/30/2018 09:13:37 08/02/2018 10:12:51 Urinary tract infectious disease 51838754 N39.0 Health Concerns Section Related Observation LastModified by Organization Detai ls LastModified Time None Recorded Concern Status LastModified by Organization Details LastModified Time None Recorded Advance Directives Directive Y: Payers Insurance Date Sequence Insurance Name Policy Number Policy Vaughn Covered Member ID Vaughn Member ID Guarantor Name 07/30/2018 1 *SELF PAY* Omero Silva [id number] Omero Silva 08/02/2018 1 [place] [employer] Omero Silva [id number] Omero Silva 08/02/2018 1 [place] [employer] Omero Silva [id number] Omero Ricardo 10/08/2018 2 [place] [facility] Omero Ricardo [id number] Omero Silva Notes Date Note Type Note Provider Name and Address Organization Details Recorded Time 07/30/2018 text/html 47-year-old male, who is new to [employer] [facility], with a past medical history includes dementia, chronic kidney disease stage III, UTIs, was evaluated for foul smelling urine. The patient was seen by a visiting nurse today who was concerned patient may have a UTi. The patient denies any complaints such as increased frequency, dysuria, hematuria, fever or any other symptoms. ANGEL AMADOR NP [address], [place], [address], [place] - [facility] 07/30/2018 10:30:24
== END 2025-04-18 09:48 | disposition home or self-care (01) ==
LOC: HO.HUSH 09:15
PROVIDERS: PCP Internal Medicine; Visit Provider Urology
DX: N20.0 Calculus of kidney (principal); N40.1 Benign prostatic hyperplasia with lower urinary tract symptoms
CPT/HCPCS: 99213; G2211

== ENCOUNTER 2025-04-18 11:25 | Outpatient (AMB) | payer MEDICARE, MEDICAID, SELFPAY ==
--- NOTE | 2025-04-18 11:40 | MHC.PC.OV ---
Vital Signs 04/18/25 11:48 Height 5 ft 4 in Weight 123 lb BMI 21.1 BP 92/50 L Blood Pressure Location Rt brachial Position Sitting Respiration 15 Pulse 74 Pulse Source Pulse Oximeter Temp 97.7 F Temp Source Oral Pulse Oximetry (%) 96 Oxygen Delivery Method Room Air Intake Visit Reasons: PE/secondary covers Intake Note: Pt is here today for his PE Allergies clindamycin (CLINDAMYCIN) Allergy (Unknown, Verified 04/18/25 11:57) UNKNOWN Sulfa (Sulfonamide Antibiotics) (SULFA (SULFONAMIDE ANTIBIOTICS)) Allergy (Unknown, Verified 04/18/25 11:57) UNKNOWN tuberculin, purified protein deriva (TB TEST) Allergy (Unknown, Verified 04/18/25 11:57) UNKNOWN Medication List - Last Reconciled 04/18/25 by Nicole Anguiano MD acetaminophen 650 mg (2 x 325 mg) PO Q6H PRN atorvastatin (Lipitor) 20 mg PO BEDTIME bethanechol chloride 25 mg PO BID 90 days dpzngnuvq-ppmaqrpi-ddmdblu ala 50-200-25 mg 1 tab PO DAILY blood sugar diagnostic (Contour Next Test Strips) Check fasting blood sugar once a day every morning; calcium carbonate (Campos-Gest Antacid) 200 mg PO BID PRN diaper,brief,adult,disposable (Depend Real Fit Brief Men L/XL) As directed 3 daily as needed for incontinence divalproex ER 1,000 mg PO BEDTIME ferrous sulfate 325 mg PO DAILY levothyroxine 75 mcg PO QAM metformin 500 mg PO DAILY methylcellulose (laxative) (Citrucel) 500 mg PO DAILY gsuiroau-wdr-olsu fum-folic ac 19 mg iron- 400 mcg (Thera-M) 1 tab PO QAM sertraline 75mg terazosin 5 mg PO BEDTIME 90 days Tobacco use date assessed: 04/18/25 Dental Screening Dental Screen Date: 04/18/25 Did you have a dental visit in the last 12 months?: Yes Did you have a dental problem in the last 6 months where you did not have access to dental care?: No Was dental information given to patient?: Patient has dentist HPI PE/secondary covers HPI Details With a 4-year-old male [facility] Medical History Iron deficiency anemia History of adenomatous polyp of colon AIDS dementia CKD (chronic kidney disease) stage 1, GFR 90 ml/min or greater Anemia Diverticulosis Acquired hypothyroidism Lives in halfway COVID-19 vaccine series completed Testicular hypofunction Depression ADHD (attention deficit hyperactivity disorder) Benign prostatic hyperplasia with lower urinary tract symptoms Dyslipidemia Acquired deformity of toenail Controlled diabetes mellitus type II without complication Nephrolithiasis Surgical History No pertinent past surgical history Family History Father Unknown family medical history Mother Unknown family medical history Brother No problems noted. Sister No problems noted. Daughter No problems noted. Social History Housing: Other Housing Other:: [facility] Alcohol intake: never Patient Tobacco Use Status: Never used Tobacco e-Cigarette/Vaping Use: Never Used Advance Directives Date on File: 09/08/22 service: No Current occupational status: disabled Current occupational exposures/hazards: No Cognitive needs: No Hearing needs: No Vision needs: Yes Questionnaire PHQ-9 Over the last 2 weeks, how often have you been bothered by any of the following problems? 1. Little interest or pleasure in doing things: not at all 2. Feeling down, depressed, or hopeless: not at all 3. Trouble falling or staying asleep, or sleeping too much: not at all 4. Feeling tired or having little energy: not at all 5. Poor appetite or overeating: not at all 6. Feeling bad about yourself - or that you are a failure or have let yourself or your family down: not at all 7. Trouble concentrating on things, such as reading the newspaper or watching television: not at all 8. Moving or speaking so slowly that other people could have noticed. Or the opposite - being so fidgety or restless that you have been moving around a lot more than usual: not at all 9. Thoughts that you would be better off or of hurting yourself in some way: not at all Total score: 0 Depression Screening Interpretation: Negative (Has depression, and ADHD, stable and controlled on present treatment, sees Dr. Bryon Isidro) Depression Screening Done: Yes Source: Developed by Drs. Paulie Holden, Tonia Lerma, Malvin Bennett and colleagues, with an educational gisela from [employer]. Thrive Questionnaire Date Thrive assessed: 10/13/24 I am a: Patient What is your living situation today?: I have a steady place to live Within the past 12 months, did the food you bought not last and you didn't have the money to get more?: Never true Within the past 12 months, did you worry whether your food would run out before you got money to buy more?: Never true Do you have trouble paying for medicines?: No Do you have trouble getting transportation to medical appointments?: No Do you have trouble paying your heating and electricity bill?: No Do you have trouble taking care of your child, family member or friend?: No Do you have trouble with day-to-day activities such as bathing, preparing meals, shopping, managing finances, etc.?: Yes Are you currently unemployed and looking for a job?: No Are you interested in more education?: No Please select the resources that you would like help with: None Currently or been in a relationship where the following occur: No concerns reported THRIVE Score: 0 AUDIT C Alcohol Use Questionnaire (AUDIT-C) 1. How often do you have a drink containing alcohol?: Never Total Score: 0 Physical exam (Primary Care) Vital Signs: Last Vital Signs Temp 97.7 F 04/18/25 11:48 Pulse 74 04/18/25 11:48 Resp 15 04/18/25 11:48 BP 92/50 L 04/18/25 11:48 Pulse Ox 96 04/18/25 11:48 Oxygen Delivery Method Room Air 04/18/25 11:48 BMI result Body Mass Index 21.1 Tobacco/Smoking Status: Tobacco use Status Tobacco use date assessed 04/18/25 04/18/25 11:55 Patient Tobacco Use Status Never used Tobacco 04/18/25 11:41 e-Cigarette/Vaping Use Never Used 04/18/25 11:41 PHQ-9: PHQ-9 Score PHQ-9: Total score 0 04/18/25 12:05 Depression Screening Interpretation: Negative (Has depression, and ADHD, stable and controlled on present treatment, sees Dr. Bryon Isidro) Thrive Assessment: Date of Thrive Assessment Date Thrive assessed 10/13/24 04/18/25 11:41 Currently or been in a relationship where the following occur: No concerns reported Office Procedures Flu Questionnaire Does the patient have a severe egg allergy?: No Does the patient have severe life threatening allergies?: No Does the patient have a fever or illness today?: No Has the patient ever had Guillain-Phoenix Syndrome?: No Has the patient ever had any past reaction to a flu shot?: No Immunizations Fluarix 8214-9137 (PF) 45 mcg (15 mcg x 3)/0.5 mL IM syringe Performing Provider: Nicole Anguiano MD Performing Location: [facility] Administered by: Stacie Hare CMA on 04/18/25 12:20 Dose Route Admin Location Dispensed Lot Number Expiration Date [facility] And Safety Trainer 0.5 mL IM Right Deltoid 0.5 mL [id number] 12/26/25 [id number] [employer] VIS Given Date VIS Provided VIS Publication Date 04/18/25 Single Vaccine 24 Eligibility Eligibility Date Funding Source Not [facility] Eligible 04/18/25 Private Results Reviewed Results Reviewed: Laboratory Tests 04/13/25 04/13/25 08:55 11:25 Estimat Average Glucose 117 Hemoglobin A1c % 5.7 Urine Creatinine 174.40 Urine Microalbumin 103.0 Microalb/Creat Ratio 59.0 H Name: Omero Silva Age/Sex: 54/M : 1970 Unit#: [id number] Attend Dr: Nicole Anguiano MD Re04/13/25 Status: DEP REF Location: [facility] Disch: SPEC : [id number] SANTOS: 04/13/25 STATUS: COMP REQ : [id number] RECD: 04/13/[address]: Nicole Anguiano MD COMP: 04/13/25 ENTERED: 04/13/[address]: ORDERED: Met Prof Fast, AST, ALT, Lipid Panel, Free T4, TSH Test Result Flag Reference Sodium 145 135-145 mmol/L Potassium 4.3 3.3-5.1 mmol/L CL 111 H 96-108 mmol/L CO2 29 22-29 mmol/L Gap 9 L 12-20 BUN 17 H 9-16 mg/dL Creat 0.98 0.5-1.4 mg/dL eGFR > 60 Chronic Kidney Disease: Estimated GFR < 60 mL/min/1.73m2 Severe Kidney Disease: Estimated GFR < 15 mL/min/1.73m2 FBS 107 H 60-99 mg/dL A fasting glucose from 100-125 mg/dl is considered impaired (pre-diabetes). CA 8.7 8.4-10.2 mg/dL AST (GOT) 28 5-37 U/L ALT (GPT) 19 0-40 U/L Triglyceride 116 <150 mg/dL Desirable Triglyceride: less than 150 mg/dL Borderline High Triglyceride 150-199 mg/dL High Triglyceride: 200-499 mg/dL Very High Triglyceride: greater than or equal to 5OO mg/dL Cholesterol 104 <200 mg/dL Desirable Cholesterol: less than 200 mg/dL Borderline High Cholesterol: 200-239 mg/dL High Cholesterol: greater than 239 mg/dL LDL Calculated 50 <100 mg/dL Desirable LDL: less than 100 mg/dL Near Optimal/Above Optimal LDL: 110-129 mg/dL Borderline High LDL: 130-159 mg/dL High LDL: 160-189 mg/dL Very High LDL: greater than or equal to 190 mg/dL HDL 31 L >40 mg/dL Desirable HDL: greater than 40 mg/dL Note: This HDL assay may give artificially low results in patients with liver disease. Free T4 0.77 0.71-1.85 ng/dL TSH 3rd Gen. 1.38 0.32-4.0 uIU/mL TSH 3rd Generation ([facility]) Coding Diagnoses Anemia D64.9 Assessment & Plan Assessment & Plan (1) Anemia: Code(s): D64.9 - Anemia, unspecified Category: Medical Orders: Orders Ferritin Today D64.9 - Anemia, unspecified Complete Blood Count Auto Diff Today D64.9 - Anemia, unspecified IRON PROFILE Today D64.9 - Anemia, unspecified Influenza 5828-7019 Immunization Today Z23 - Encounter for immunization
[2025-04-18 11:48] VITALS: BP 92/50; PULSE 74; RESP 15; TEMP 36.5; O2SAT 96; BMI 21.1
== END 2025-04-18 13:37 | disposition home or self-care (01) ==
LOC: HO.HMCC 11:26
PROVIDERS: PCP Internal Medicine; Visit Provider Internal Medicine
DX: Z23 Encounter for immunization (principal)

== ENCOUNTER 2025-04-18 12:21 | Outpatient (REF) | payer MEDICARE, MEDICAID, SELFPAY ==
[2025-04-18 13:43] LABS: MANUAL DIFF FLAG NO
[2025-04-18 13:53] LABS: Hematocrit 37.3 % (42.0-52.0); Hemoglobin 12.8 g/dl (14.0-18.0); Imm Gran Abs Auto 0.02 X10*3/uL (0.00-0.03); Imm Gran Pct Auto 0.3 % (0.0-0.4); Lymphocytes Absolute Auto 2.0 X10*3/uL (1.2-4.9); Mean Corpuscular HGB Conc 34.3 g/dl (31.0-36.0); Mean Corpuscular Hemoglobin 35.5 pg (27.0-33.0); Mean Corpuscular Volume 103.3 fL (80.0-98.0); NRBC Abs Auto 0.000 X10*3/uL (0.0-0.012); NRBC Pct Auto 0.0 /100WBC (0.0-0.2); Platelet Count 163 X10*3/uL (160-400); Red Blood Count 3.61 X10*6/uL (4.60-5.80); White Blood Count 6.4 X10*3/uL (4.8-10.8)
[2025-04-18 14:34] LABS: Iron 131 mcg/dL (45-160); Percent Iron Saturation 56 % (15-50); Total Iron Binding Capacity 232 mcg/dL (228-428); Unsaturated Iron Binding 101 ug/dL
[2025-04-18 14:50] LABS: Ferritin 195 ng/mL (20-250)
--- OUTSIDE RECORDS SUMMARY | 2025-04-18 15:51 | XMS_ITS | Clinical Summary ---
Author Organization [facility] Facility Address [address] [address] Care Team Providers Care Identity Access Management Architect Name Role Phone Edin Anguiano MD Primary Care Provider +1- [phone] Allergies Active Allergy Reactions Criticality Noted Date Comments Clindamycin 01/14/2021 Sulfa Antibiotics 01/14/2021 Medications sertraline (ZOLOFT) 50 MG tablet Take 1.5 tablets by mouth 1 (one) time each day Active guaiFENesin (ROBITUSSIN) 100 MG/5ML syrup as directed Active ergocalciferol 1.25 MG (51316 UT) capsule Take 1 capsule by mouth [...] mg/dl PVNMA 07/05/2020 us Rtama Conversion LAB [id number] LICITED RESULTS Final Result PVNMA from Last 3 Months or Most Recently Relevant to Health Maintenance Insurance Medicare Medicaid [place] Medicare [place] Care Teams Identity Access Management Architect Relationship Specialty Start Date End Date Edin Anguiano MD [address] [place] [id number] PCP - General 07/09/20
== END 2025-04-18 12:22 | disposition home or self-care (01) ==
LOC: HO.HMGCLDS 12:21
PROVIDERS: PCP Internal Medicine; Visit Provider Internal Medicine
DX: Z23 Encounter for immunization (principal); Z00.01 Encounter for general adult medical examination with abnormal findings; E11.22 Type 2 diabetes mellitus with diabetic chronic kidney disease; N18.30 Chronic kidney disease, stage 3 unspecified; D63.1 Anemia in chronic kidney disease; F90.9 Attention-deficit hyperactivity disorder, unspecified type; F32.A Depression, unspecified; E78.5 Hyperlipidemia, unspecified; E03.9 Hypothyroidism, unspecified; E29.1 Testicular hypofunction; N40.1 Benign prostatic hyperplasia with lower urinary tract symptoms; Z79.4 Long term (current) use of insulin; Z79.890 Hormone replacement therapy; Z79.899 Other long term (current) drug therapy
CPT/HCPCS: 36415; 82728; 83540; 85025; 90471; 90656; 99212; 99396

== ENCOUNTER 2025-05-17 10:02 | Outpatient (REF) | payer MEDICARE, MEDICAID, SELFPAY ==
[2025-05-17 15:25] LABS: Alanine Aminotransferase 18 U/L (0-40); Albumin Level 3.7 g/dL (3.5-5.0); Alkaline Phosphatase 62 U/L (39-117); Aspartate Amino Transferase 28 U/L (5-37); Total Protein 6.3 g/dL (6.5-8.0)
--- OUTSIDE RECORDS SUMMARY | 2025-05-17 18:56 | XMS_ITS | Patient Health Record ---
Author Organization [facility] Address [address] [facility] [place] [address] Care Team Providers Care Cotton Machine Operator Name Role Phone Annmarie SALCIDO, Nicole Jamison Primary Care Provider Un available Black, Daxa Unavailable [phone] Reason For Referral No Information Medications Medication [...] Orally Act malik guaiFENesin 10ML Orally Act mlaik Depakote 500 MG Orally Acti ve Gemfibrozil [...] Polyneuropathy due to type 2 diabetes mellitus (729136434) Type 2 diabetes mellitus with diabetic polyneuropathy (E11.42) Active confirmed Plan Of Treatment Pending Test Test Name Order Date [id number] NAIL, 1-5 11/17/2016 [id number] DYSTROPHIC NAILS ANY # Insurance Providers Payer Name Payer Address Payer Phone Subscriber Number Group Number Insured Name Patient Relationship to Insured Coverage Start Date Coverage End Date Medicare National Govt S[employer] [address] [facility] [address] [id number] Omero Silva Self - patient is the insured Medical (General) History Medical History History ICD Code Diabetic Human immunodeficiency virus (HIV), posi tive Kidney disease Surgical History Surgery Date(Month/Year)
--- OUTSIDE RECORDS SUMMARY | 2025-05-17 18:56 | XMS_ITS | Clinical Summary ---
Author Organization [facility] Facility Address [address] [address] Care Team Providers Care Microsoft Crm Developer Name Role Phone Edin Anguiano MD Primary Care Provider +1- [phone] Allergies Active Allergy Reactions Criticality Noted Date Comments Clindamycin 01/14/2021 Sulfa Antibiotics 01/14/2021 Medications sertraline (ZOLOFT) 50 MG tablet Take 1.5 tablets by mouth 1 (one) time each day Active guaiFENesin (ROBITUSSIN) 100 MG/5ML syrup as directed Active ergocalciferol 1.25 MG (97340 UT) capsule Take 1 capsule by mouth [...] mg/dl PVNMA 07/05/2020 us Rtama Conversion LAB [id number] LICITED RESULTS Final Result PVNMA from Last 3 Months or Most Recently Relevant to Health Maintenance Insurance Medicare [place] Care Teams Microsoft Crm Developer Relationship Specialty Start Date End Date Edin Anguiano MD PCP - General 07/09/20
--- OUTSIDE RECORDS SUMMARY | 2025-05-17 18:56 | XMS_ITS | Data Portability ---
Author Organization [place] - [facility], [facility] Address [address] [place] [address] Care Team Providers Care Offset Printer Name Role Phone [email or web address] Primary Care Provider Assessment Encounter Date Assessment [...] Lab urinalysi s, dipstick 2018 019 [email or web address] [facility], [address] [place], [address], 9 10:29:21 culture, urine - Collected by [facility] 2018 019 RICKEY [facility] (Centralized Electronic Ordering - All Locations), Patient Can Go To The Location Of Their Choice, [id number] 9 11:37:08 Referral None recorded. Procedures None recorded. Surgeries None recorded. Imaging None recorded. Medication Orders cephalexi n 500 mg capsule 2018 019 [email or web address] Not available 9 09:33:41 Keflex 500 mg capsule 2018 [facility]- , [address] [place], [place], [id number], 9 09:44:51 Patient TargetsNo targets recorded. Patient Instructions Encounter Date Encounter Id Patient Instructions Last Modified By Organization Details Last Modified Time 07/30/2018 [id number] URINARY TRACT INFECTION INSTRUCTIONS BASIC INFORMATION Urinary [...] condition between 8am-10pm, please call [facility] at [phone] to help navigate your care. Not available 07/30/2018 09:40:31 Reason for Referral None Reported. Results Created Date Observation Date Name Description Value Unit Range Abnormal Flag Note LastModifiedBy Organization Detail LastModifiedTime 07/30/1907/30/2018 urina lysis , dipst ick Appearance cloudy Not Available Spr - [facility] [address], [place], [address], 07/30/2018 09:40:32 07/30/1907/30/2018 urina lysis , dipst ick Color yellow /straw Not Available Spr - [place] [address], [place], [address], 07/30/2018 09:40:32 07/30/19 19 07/30/2018 urina lysis , dipst ick Glucose negati ve Not Available Spr - Home [address] [place], [address], 07/30/2018 09:40:32 07/30/1907/30/2018 urina lysis , dipst ick Bilirubin negati ve Not Available Spr - Home [address] [place], [address], 07/30/2018 09:40:32 07/30/1907/30/2018 urina lysis , dipst ick Ketones NEG Not Available Spr - Home [address] [place], [address], 07/30/2018 09:40:32 07/30/1907/30/2018 urina lysis , dipst ick Sp. [place] 1.005 Not Available Spr - Home [address] [place], [address], 07/30/2018 09:40:32 07/30/1907/30/2018 urina lysis , dipst ick Blood ++ Not Available Spr - Home [address] [place], [address], 07/30/2018 09:40:32 07/30/1907/30/2018 urina lysis , dipst ick pH 6 Not Available Spr - Home [address] [place], [address], 07/30/2018 09:40:32 07/30/1907/30/2018 urina lysis , dipst ick Protein negati ve Not Available Spr - Home [address] [place], [address], 07/30/2018 09:40:32 07/30/1907/30/2018 urina lysis , dipst ick Urobilirubin negati ve Not Available Spr - Home [address] [place], [address], 07/30/2018 09:40:32 07/30/1907/30/2018 urina lysis , dipst ick Nitrites ++ Not Available Spr - [facility] [address], [place], [address], 07/30/2018 09:40:32 07/30/1907/30/2018 urina lysis , dipst ick Leukocytes +++ Not Available Spr - H ome [address], [place], [address], 07/30/2018 09:40:32 07/30/1907/30/2018 cultu re, urine specimen description URINE Not Available [facility] (Centralized Electronic Ordering - All Locations) Patient Can Go To The Location Of Their Choice, [id number] 08/01/2018 11:37:08 07/30/1907/30/2018 cultu re, urine special requests NONE Not Available [facility] (Centralized Electronic Ordering - All Locations) Patient Can Go To The Location Of Their Choice, 08/01/2018 11:37:08 07/30/1908/01/2018 cultu re, urine culture >100,0 00 COL/ML ESCHER ICHIA COLI abnormal Not Available [facility] (Centralized Electronic Ordering - All Locations) Patient Can Go To The Location Of Their Choice, [id number] 08/01/2018 11:37:08 07/30/1908/01/2018 cultu re, urine report [...] Go To The Location Of Their Choice, [address] 08/01/2018 11:37:08 07/30/1908/01/2018 cultu re, urine tetracycline TETRAC YCLINE SUSCEP TIBLE susceptib le Not Available [facility] (Centralized Electronic Ordering - All Locations) Patient Can Go To The Location Of Their Choice, [id number] 08/01/2018 11:37:08 Result Notes None recorded. Medical Equipment None Reported. Allergies Allergen ID Allergen Name Allergen Category Reaction Reaction Severity Criticality Documentation Date Start Date Code Code System Note Provider Name and Address Organization Details Recorded Time 69217 clindamyc in Not available Not available Not available Not available 07/30/2018 2582 RxNorm ANGEL AMADOR NP [address], [place], [address], [place] [facility] 9 09:34:06 45470 Substance with sulfonami de structure and antibacte rial mechanism of action (substanc e) medicatio n Not available Not available Not available 07/30/2018 20378 8003 SNOMED ANGEL AMADOR, TERRELL [address] [place], [address], [place] - [facility] 9 09:34:19 Medications Name [...] Smoker ANGEL AMADOR, TERRELL [address], [place], [address], [place] [facility] 07/30/2018 09:34:44 Do You Have An Advance Directive? Yes [facility] not available 07/30/2018 What Is Your Code Status? Full Code [facility] [place] not available 07/30/2018 Within [...] Artery Disease N Depression N COPD N Diabetes Y Cancer N Asthma N Hypertension Y Kidney Disease Y Past Encounters Encounter ID Performer Location Encounter Start Date Encounter Closed Date Diagnosis/Indication Diagnosis SNOMED-CT Code Diagnosis ICD10 Code Diagnosis IMO Codes Diagnosis Note [id number] ANGEL AMADOR NP [facility] [address] [address] 07/30/2018 09:13:37 08/02/2018 10:12:51 Urinary tract infectious disease 34779934 N39.0 Health Concerns Section Related Observation LastModified by Organization Detai ls LastModified Time None Recorded Concern Status LastModified by Organization Details LastModified Time None Recorded Advance Directives Directive Y: Payers Insurance Date Sequence Insurance Name Policy Number Policy Vaughn Covered Member ID Vaughn Member ID Guarantor Name 07/30/2018 1 *SELF PAY* Omero Silva [id number] Omero Silva 08/02/2018 1 [place]IC[place] [employer] Omero Silva [id number] Omero Silva 08/02/2018 1 [place] [employer] Omero Silva [id number] Omero Ricardo 10/08/2018 2 [place] [facility] Omero Ricardo [id number] Omero Silva Notes Date Note Type Note Provider Name and Address Organization Details Recorded Time 07/30/2018 text/html 47-year-old male, who is new to [facility], with a past medical history includes dementia, chronic kidney disease stage III, UTIs, was evaluated for foul smelling urine. The patient was seen by a visiting nurse today who was concerned patient may have a UTi. The patient denies any complaints such as increased frequency, dysuria, hematuria, fever or any other symptoms. ANGEL AMADOR NP [address], [place], [address], [place] - [facility] 07/30/2018 10:30:24
== END 2025-05-17 10:03 | disposition home or self-care (01) ==
LOC: HO.HMGCLDS 10:02
PROVIDERS: PCP Internal Medicine; Visit Provider General Practice
DX: Z79.899 Other long term (current) drug therapy (principal)
CPT/HCPCS: 36415; 80076; 80164

== ENCOUNTER 2025-06-13 18:57 | Emergency (ER) | payer MEDICARE, MEDICAID, SELFPAY ==
--- NOTE | ~2025-06-13 | XR_ITS ---
CLINICAL HISTORY: hip pain 3 view, pelvis and left hip Comparison: CR/SR - XR HIP 1 VIEW RIGHT WITH PELVIS - 08/02/22 17:17 EST Findings: No acute fracture or dislocation. Mild bilateral hip osteoarthritis. The soft tissues are unremarkable. IMPRESSION: No acute findings. This document has been electronically signed by: Moira Shaikh MD on 06/13/2025 20:29:05
--- NOTE | ~2025-06-13 | XR_ITS ---
CLINICAL HISTORY: cp 1 view chest x-ray Comparison: None provided Findings: Small left pleural effusion. No consolidation or pneumothorax. Normal size heart. No acute fracture. IMPRESSION: Small left pleural effusion. This document has been electronically signed by: Moira Shaikh MD on 06/13/2025 20:31:29
--- NOTE | ~2025-06-13 | CT_ITS ---
CLINICAL HISTORY: head trauma CT cervical spine without contrast Comparison: None provided Findings: Normal vertebral body alignment. No significant degenerative change. No acute fractures or dislocations. Visualized intracranial contents are unremarkable. Soft tissues of the neck are normal. Lung apices are clear. IMPRESSION: No acute findings. This document has been electronically signed by: Moira Shaikh MD on 06/13/2025 20:33:10
--- NOTE | ~2025-06-13 | CT_ITS ---
CLINICAL HISTORY: head trauma CT head without contrast Comparison: CT/SR - CT HEAD WITHOUT IV CONTRAST - 04/04/25 09:14 EDT Findings: No intra-axial mass, midline shift, hydrocephalus, or acute hemorrhage. Diffuse volume loss. Periventricular and subcortical white matter hypoattenuation likely chronic small-vessel ischemic changes. Intracranial atherosclerosis. Mucosal thickening in the left sphenoid sinus. The orbits are unremarkable. No skull fracture. IMPRESSION: 1. No acute intracranial findings. This document has been electronically signed by: Moira Shaikh MD on 06/13/2025 20:34:22
[2025-06-13 19:34] VITALS: BP 106/44; BP 107/51; PULSE 77; PULSE 86; RESP 16; TEMP 36.5; O2SAT 95; O2SAT 97; BMI 20.8
--- NOTE | 2025-06-13 19:35 | ED.GENADULT ---
HPI - General Adult General Chief complaint: Fall Stated complaint: skilled nursing, un w fall,lt hip pain,+jesús Time Seen by Provider: 06/13/25 19:31 Source: patient Mode of arrival: ambulatory Limitations: no limitations History of Present Illness ED Provider: Dr. Tong HPI narrative: This is a 54-year-old male history of diabetes, BPH presented hospital from skilled nursing after an unwitnessed fall from his bed. Patient stated that he struck his head and injure his left hip. Related Data Home Medications ?Medication ?Instructions ?Recorded ?Confirmed bictegravir 50 mg-emtricitabine 1 tab PO DAILY 08/31/20 04/18/25 200 mg-tenofovir alafenam 25 mg tablet divalproex 500 mg tablet,extended 1,000 mg PO BEDTIME 08/31/20 04/18/25 release 24 hr sertraline 25 mg tablet mg PO 06/05/21 04/18/25 Previous Rx's ?Medication ?Instructions ?Recorded blood sugar diagnostic (Contour See Rx Instructions .Route QAM for 04/17/21 Next Test Strips) diabetes mellitus #50 strips atorvastatin 20 mg tablet (Lipitor) 20 mg PO BEDTIME #90 tabs 07/07/24 metformin 500 mg tablet 500 mg PO DAILY #90 tabs 07/07/24 methylcellulose (laxative) 500 mg 500 mg PO DAILY #90 tabs 07/07/24 tablet (Citrucel) acetaminophen 325 mg capsule 650 mg (2 x 325 mg) PO Q6H PRN 08/12/24 fever or pain #30 caps calcium carbonate (Campos-Gest 200 mg PO BID PRN dyspepsia #60 10/09/24 Antacid) tabs levothyroxine 75 mcg tablet 75 mcg PO QAM #90 tabs 01/08/25 diaper,brief,adult,disposable #90 ea 01/24/25 (Depend Real Fit Brief Men L/XL) terazosin 5 mg capsule 5 mg PO BEDTIME 90 days #90 caps 01/30/25 wlgcrecfqjfg-qblbiqxg-rhdm 1 tab PO QAM #30 tabs 04/07/25 fumarate 19 mg-folic acid 400 mcg tablet (Thera-M) bethanechol chloride 25 mg tablet 25 mg PO BID 90 days #180 tabs 04/18/25 ferrous sulfate 325 mg (65 mg 325 mg PO DAILY #90 tabs 06/12/25 iron) tablet Allergies Allergy/AdvReac Type Severity Reaction Status Date / Time clindamycin (CLINDAMYCIN) Allergy Unknown UNKNOWN Verified 06/13/25 19:38 Sulfa (Sulfonamide Allergy Unknown UNKNOWN Verified 06/13/25 19:38 Antibiotics) (SULFA (SULFONAMIDE ANTIBIOTICS)) tuberculin, purified protein Allergy Unknown UNKNOWN Verified 06/13/25 19:38 deriva (TB TEST) Review of Systems Review of Systems: Pertinent review of systems as mentioned in HPI. All other system otherwise negative. [facility] Past Medical History [facility] Narrative: Medical history as mentioned in HPI Medical History (Updated 06/13/25 @ 21:09 by Bren Tong DO) History of adenomatous polyp of colon AIDS dementia CKD (chronic kidney disease) stage 1, GFR 90 ml/min or greater Anemia Diverticulosis Acquired hypothyroidism Lives in skilled nursing COVID-19 vaccine series completed Testicular hypofunction Depression ADHD (attention deficit hyperactivity disorder) Benign prostatic hyperplasia with lower urinary tract symptoms Dyslipidemia Acquired deformity of toenail Controlled diabetes mellitus type II without complication Nephrolithiasis Surgical History No pertinent past surgical history Family History Family History Father Unknown family medical history Mother Unknown family medical history Brother No problems noted. Sister No problems noted. Daughter No problems noted. Social History Social History Housing: Other Housing Other:: senior care Alcohol intake: never Patient Tobacco Use Status: Never used Tobacco e-Cigarette/Vaping Use: Never Used Advance Directives: Yes Advance Directives on File: Yes Advance Directives Date on File: 09/08/22 service: No Current occupational status: disabled Current occupational exposures/hazards: No Cognitive needs: No Hearing needs: No Vision needs: Yes Physical Exam ED Exam Exam: General: Pleasant, no distress, interacting appropriately Head: Normacephalic, atraumatic ENT: oral mucosa moist, neck supple, no tracheal deviation, C-collar in place Cardiovascular: regular rate, regular rhythm, no murmurs, rubbing, gallops, chest wall tenderness on palpation Respiratory: CTAB, no wheeze, rales, rhonchi Gastrointestinal: Soft, non distended, non tender, non guarding Extremities: Small abrasion over the left hip. Tenderness over the left hip Neurological: Awake and alert, no facial droop noted Skin: Warm and dry Psychiatric: Appropriate mood and thoughts Vital Signs: Vital Signs - 24 hr 06/13/25 19:34 06/13/25 20:00 Temperature 97.7 F 97.5 F Pulse Rate 77 73 Respiratory Rate 16 Blood Pressure 107/51 L Pulse Oximetry 97 96 Oxygen Delivery Method Room Air Room Air BMI result Body Mass Index 20.8 Medications Administered Discontinued Medications Generic Name Dose Route Start Last Admin Trade Name Freq PRN Reason Stop Dose Admin Acetaminophen 975 mg 06/13/25 19:36 06/13/25 20:38 Acetaminophen 325 Mg Tablet PO 06/13/25 19:37 975 mg ONCE ONE Administration Medical Decision Making Medical Decision Making [facility] Narrative: 54-year-old male presented hospital today for unwitnessed fall off his bed. Chest x-ray did not show any signs of fracture no sign of pneumothorax, hip x-ray did not show any signs of fracture. CT head and CT C-spine is negative. Patient will be discharged back to his skilled nursing. Differential Diagnosis Differential Diagnoses: The differential diagnosis associated with the presentation includes Hip fracture, intracranial bleed, C-spine fracture, hip contusion Independent Interpretation I performed an independent interpretation of an: Plain X-Ray and CT Scan Radiology Impression Discussion of test interpretation with radiology: I have reviewed the radiologist's reading. Discharge Plan Discharge Clinical Impression: Contusion of hip Patient Disposition: Home, Self-Care Prescriptions: No Action Contour Next Test Strips Strip See Rx Instructions .ROUTE QAM Qty: 50 6RF Rx Instructions: Check fasting blood sugar once a day every morning; metformin 500 mg tablet 500 mg PO DAILY Qty: 90 5RF atorvastatin [Lipitor] 20 mg tablet 20 mg PO BEDTIME Qty: 90 5RF Citrucel 500 mg tablet 500 mg PO DAILY Qty: 90 5RF Rx Instructions: take it with full glass of water acetaminophen 325 mg capsule 650 mg PO Q6H PRN (Reason: fever or pain) Qty: 30 1RF calcium carbonate [Campos-Gest Antacid] 200 mg calcium (500 mg) tablet,chewable 200 mg PO BID PRN (Reason: dyspepsia) Qty: 60 6RF Rx Instructions: Take only as needed for episodes of heartburn symptoms levothyroxine 75 mcg tablet 75 mcg PO QAM Qty: 90 1RF (DME) Depend Real Fit Brief Men L/XL Misc See Rx Instructions .Route Qty: 90 5RF Rx Instructions: As directed 3 daily as needed for incontinence terazosin 5 mg capsule 5 mg PO BEDTIME 90 Days Qty: 90 1RF Thera-M 19 mg iron- 400 mcg tablet 1 tab PO QAM Qty: 30 2RF ferrous sulfate 325 mg (65 mg iron) tablet 325 mg PO DAILY Qty: 90 1RF divalproex 500 mg tablet extended release 24 hr 1,000 mg PO BEDTIME arnlelqdh-hydavsyc-slnzkzv ala 50-200-25 mg tablet 1 tab PO DAILY sertraline 25 mg tablet PO Patient Comments: 75 mg Rx Instructions: 75mg bethanechol chloride 25 mg tablet 25 mg PO BID 90 Days Qty: 180 1RF Print Language: Other
[2025-06-13 20:00] VITALS: PULSE 73; TEMP 36.4; O2SAT 96
--- OUTSIDE RECORDS SUMMARY | 2025-06-13 20:35 | XMS_ITS | Data Portability ---
Author Organization [place] - [facility], [facility] Address [address] [place] [address] Care Team Providers Care Receptionist Airline Lounge Name Role Phone [email or web address] Primary Care Provider Assessment Encounter Date Assessment Date Assessment LastModified by Organization Details LastModified Time 07/30/2018 07/30/2018 Overview/Histor y: 47-year-old male, who is new to the [facility], with a past medical history of mild dementia, CKD stage III, frequent UTIs, who is a resident at a half-way was evaluated after the visiting nurse noticed [...] Lab urinalysi s, dipstick 2018 019 [email or web address] [facility], [address] [place], [address], 9 10:29:21 culture, urine - Collected by [facility] 2018 019 RICKEY [facility] (Centralized Electronic Ordering - All Locations), Patient Can Go To The Location Of Their Choice, [id number] 9 11:37:08 Referral None recorded. Procedures None recorded. Surgeries None recorded. Imaging None recorded. Medication Orders cephalexi n 500 mg capsule 2018 019 [email or web address] Not available 9 09:33:41 Keflex 500 mg capsule 2018 [facility] [place]- , [address] [place], [place], [id number], 9 09:44:51 Patient TargetsNo targets recorded. Patient Instructions Encounter Date Encounter Id Patient Instructions Last Modified By Organization Details Last Modified Time 07/30/2018 [id number] URINARY TRACT INFECTION INSTRUCTIONS BASIC INFORMATION Urinary [...] condition between 8am-10pm, please call [facility] at [phone] to help navigate your care. Not available 07/30/2018 09:40:31 Reason for Referral None Reported. Results Created Date Observation Date Name Description Value Unit Range Abnormal Flag Note LastModifiedBy Organization Detail LastModifiedTime 07/30/1907/30/2018 urina lysis , dipst ick Appearance cloudy Not Available Spr - [facility] [address], [place], [address], 07/30/2018 09:40:32 07/30/1907/30/2018 urina lysis , dipst ick Color yellow /straw Not Available Spr - [place] [address], [place], [address], 07/30/2018 09:40:32 07/30/19 19 07/30/2018 urina lysis , dipst ick Glucose negati ve Not Available Spr - Home [address] [place], [address], 07/30/2018 09:40:32 07/30/1907/30/2018 urina lysis , dipst ick Bilirubin negati ve Not Available Spr - Home [address] [place], [address], 07/30/2018 09:40:32 07/30/1907/30/2018 urina lysis , dipst ick Ketones NEG Not Available Spr - Home [address] [place], [address], 07/30/2018 09:40:32 07/30/1907/30/2018 urina lysis , dipst ick Sp. Jeffrey 1.005 Not Available Spr - Home [address] [place], [address], 07/30/2018 09:40:32 07/30/1907/30/2018 urina lysis , dipst ick Blood ++ Not Available Spr - Home [address] [place], [address], 07/30/2018 09:40:32 07/30/1907/30/2018 urina lysis , dipst ick pH 6 Not Available Spr - Home [address] [place], [address], 07/30/2018 09:40:32 07/30/1907/30/2018 urina lysis , dipst ick Protein negati ve Not Available Spr - Home [address] [place], [address], 07/30/2018 09:40:32 07/30/1907/30/2018 urina lysis , dipst ick Urobilirubin negati ve Not Available Spr - Home [address] [place], [address], 07/30/2018 09:40:32 07/30/1907/30/2018 urina lysis , dipst ick Nitrites ++ Not Available Spr - [place] [address], [place], [address], 07/30/2018 09:40:32 07/30/1907/30/2018 urina lysis , dipst ick Leukocytes +++ Not Available Spr - H ome [address], [place], [address], 07/30/2018 09:40:32 07/30/1907/30/2018 cultu re, urine specimen description URINE Not Available [facility] (Centralized Electronic Ordering - All Locations) Patient Can Go To The Location Of Their Choice, [id number] 08/01/2018 11:37:08 07/30/1907/30/2018 cultu re, urine special requests NONE Not Available [facility] (Centralized Electronic Ordering - All Locations) Patient Can Go To The Location Of Their Choice, 08/01/2018 11:37:08 07/30/1908/01/2018 cultu re, urine culture >100,0 00 COL/ML ESCHER ICHIA COLI abnormal Not Available [facility] (Centralized Electronic Ordering - All Locations) Patient Can Go To The Location Of Their Choice, [id number] 08/01/2018 11:37:08 07/30/1908/01/2018 cultu re, urine report [...] Go To The Location Of Their Choice, [id number] 08/01/2018 11:37:08 07/30/1908/01/2018 cultu re, urine tetracycline TETRAC YCLINE SUSCEP TIBLE susceptib le Not Available [facility] (Centralized Electronic Ordering - All Locations) Patient Can Go To The Location Of Their Choice, [id number] 08/01/2018 11:37:08 Result Notes None recorded. Medical Equipment None Reported. Allergies Allergen ID Allergen Name Allergen Category Reaction Reaction Severity Criticality Documentation Date Start Date Code Code System Note Provider Name and Address Organization Details Recorded Time 58741 clindamyc in Not available Not available Not available Not available 07/30/2018 2582 RxNorm ANGEL AMADOR NP [address], [place], [address], [place] [facility] 9 09:34:06 79476 Substance with sulfonami de structure and antibacte rial mechanism of action (substanc e) medicatio n Not available Not available Not available 07/30/2018 75450 8003 SNOMED ANGEL AMADOR, TERRELL [address], [place], [address], [place] [facility] 9 09:34:19 Medications Name [...] Recorded Heart rate Body temperature Oxygen saturation Respiratory rate Systolic And Diastolic Provider Name and Address Organization Details Last Updated DateTime 9 62 /min 97.2 [degF] 98 % 16 /min 116/84 mm[Hg] Not Available [facility] 9 09:39:00 Social History Question Answer Notes LastModified by Organizat ion Details LastModified Time Tobacco Smoking Status Never Smoker ANGEL AMADOR, TERRELL [address], [place], [address], [place] [facility] 07/30/2018 09:34:44 Do You Have An Advance Directive? Yes Information not available 07/30/2018 What Is Your Code Status? Full Code [email or web address] Information not available 07/30/2018 Within The Past 12 Months, Has It Happened That The Food You Bought Just Didn't Last And You Didn't Have Money To Get More. Normal [facility] – Information not available 07/30/2018 Within The Past 12 Months, Have You Worried That Your Food Would Run Out Before You Got Money To Buy More. Yes [facility] – Information not available 07/30/2018 Fall Risk: Do [...] Time Father No current problems or disability [email or web address] Not available 06/2018 09:34:33 Mother No current problems or disability [email or web address] Not available 06/2018 09:34:33 Medical History Condition Response Diabetes Y Coronary Artery Disease N Cancer N Depression N COPD N Asthma N Hypertension Y Kidney Disease Y Past Encounters Encounter ID Performer Location Encounter Start Date Encounter Closed Date Diagnosis/Indication Diagnosis SNOMED-CT Code Diagnosis ICD10 Code Diagnosis IMO Codes Diagnosis Note [id number] ANGEL AMADOR NP [facility] [address] [place] [address] 07/30/2018 09:13:37 08/02/2018 10:12:51 Urinary tract infectious disease 84345491 N39.0 Health Concerns Section Related Observation LastModified by Organization Detai ls LastModified Time None Recorded Concern Status LastModified by Organization Details LastModified Time None Recorded Advance Directives Directive Y: Payers Insurance Date Sequence Insurance Name Policy Number Policy Vaughn Covered Member ID Vaughn Member ID Guarantor Name 07/30/2018 1 *SELF PAY* Omero Silva [id number] Omero Silva 08/02/2018 1 MEDICARE B-[place]: [employer] Omero Silva [id number] Omero Silva 08/02/2018 1 MEDICARE [place]: [employer] Omero Silva [id number] Omero Silva 10/08/2018 2 MED[place]: [facility] Omerobooker Silva [id number] Omero Silva Notes Date Note Type Note Provider Name and Address Organization Details Recorded Time 07/30/2018 text/html 47-year-old male, who is new to [email or web address], with a past medical history includes dementia, chronic kidney disease stage III, UTIs, was evaluated for foul smelling urine. The patient was seen by a visiting nurse today who was concerned patient may have a UTi. The patient denies any complaints such as increased frequency, dysuria, hematuria, fever or any other symptoms. ANGEL AMADOR NP [address] [facility], [place], [address], [place] - [facility] 07/30/2018 10:30:24
--- OUTSIDE RECORDS SUMMARY | 2025-06-13 20:35 | XMS_ITS | Patient Health Record ---
[facility] Organization [facility] Address [address] [place] [address] Care Team Providers Care Golf Cart Mechanic Name Role Phone Annmarie SALCIDO, Nicole Jamison Primary Care Provider Un available Black, Daxa Unavailable [phone] Reason For Referral No Information Medications Medication [...] Polyneuropathy due to type 2 diabetes mellitus (811890117) Type 2 diabetes mellitus with diabetic polyneuropathy (E11.42) Active confirmed Plan Of Treatment Pending Test Test Name Order Date [id number] NAIL, 1-5 11/17/2016 [id number] DYSTROPHIC NAILS ANY # Insurance Providers Payer Name Payer Address Payer Phone Subscriber Number Group Number Insured Name Patient Relationship to Insured Coverage Start Date Coverage End Date Medicare National [employer] [address] [place] [address] [id number] Omero Silva Self - patient is the insured Medical (General) History Medical History History ICD Code Diabetic Human immunodeficiency virus (HIV), posi tive Kidney disease Surgical History Surgery Date(Month/Year)
[2025-06-13 21:43] VITALS: BP 109/61; PULSE 71; TEMP 36.7; O2SAT 96
[2025-06-13 23:10] VITALS: BP 107/56; PULSE 71; RESP 16; TEMP 36.6; O2SAT 97
[2025-06-13 23:11] VITALS: BP 107/56; PULSE 71; RESP 16; TEMP 36.6; O2SAT 97
== END 2025-06-13 23:13 | disposition home or self-care (01) ==
PROVIDERS: Emergency Provider Student in an Organized Health Care Education/Training Program
DX: S70.02XA Contusion of left hip, initial encounter (principal); N18.1 Chronic kidney disease, stage 1; E11.9 Type 2 diabetes mellitus without complications; B20 Human immunodeficiency virus [HIV] disease; F02.80 Dementia in other diseases classified elsewhere, unspecified severity, without behavioral disturbance, psychotic disturbance, mood disturbance, and anxiety; W06.XXXA Fall from bed, initial encounter; Y93.89 Activity, other specified; Y92.89 Other specified places as the place of occurrence of the external cause; Y99.8 Other external cause status; Z79.899 Other long term (current) drug therapy
CPT/HCPCS: 70450; 71045; 72125; 73502; 99284

== ENCOUNTER → 2025-06-13 19:35 | Outpatient (BNV) | payer MEDICARE, MEDICAID, SELFPAY | PROVIDERS: Emergency Provider Student in an Organized Health Care Education/Training Program; Visit Provider Radiology Diagnostic Radiology | DX: S09.90XA Unspecified injury of head, initial encounter (principal); M25.552 Pain in left hip; J90 Pleural effusion, not elsewhere classified | CPT/HCPCS: 70450; 71045; 72125; 73502 ==